=== PATIENT | male | born 1950 ===

== ENCOUNTER 2020-02-23 13:27 | Emergency (ER) | payer MEDICARE, OTHER, SELFPAY ==
[2020-02-23 13:53] VITALS: BP 170/95; PULSE 88; RESP 17; TEMP 36.9; O2SAT 95; BMI 29.2
--- NOTE | 2020-02-23 13:54 | ED.GENADULT ---
HPI - General Adult General Chief complaint: Eye Problems Stated complaint: eye infection Time Seen by Provider: 02/23/20 13:54 Source: patient Mode of arrival: ambulatory Limitations: no limitations History of Present Illness HPI narrative: Irritation and redness around the eyelids for the past 5 days. History of similar in the past. States started with dry itchy areas on the eyelid is now becoming more irritated and red. Severity: mild Quality: aching Relieving factors: none Exacerbating factors: none Associated symptoms: denies other symptoms Treatments prior to arrival: none Related Data Home Medications Medication Instructions Recorded Confirmed atorvastatin 40 mg tablet 40 mg PO DAILY 02/14/20 Previous Rx's Medication Instructions Recorded lisinopril 30 mg tablet 30 mg PO DAILY #90 tab 02/15/20 doxycycline monohydrate 100 mg PO BID 10 Days #20 cap 02/23/20 prednisone 40 mg PO DAILY 7 Days #14 tab 02/23/20 Allergies Allergy/AdvReac Type Severity Reaction Status Date / Time No Known Allergies Allergy Verified 02/23/20 13:55 [No Known Allergies*] Review of Systems Review of Systems: Constitutional: No Weight loss, No Fever, No Chills, No Night Sweats, No Fatigue, No Malaise ENT/Mouth: No Hearing loss, No Ear Pain, No Nasal Congestion, No Sinus Pain, No Hoarseness, No sore throat, No Rhinorrhea, No Swallowing Difficulty Eyes: No Eye Pain, No Swelling, No Redness, No Foreign Body, No Discharge, No Vision Changes Cardiovascular: No Chest Pain, No SOB, No Dyspnea on Exertion, No Orthopnea, No Edema, No Palpitations Respiratory: No Cough, No Sputum, No Wheezing, No Smoke Exposure, No Dyspnea Gastrointestinal: No Nausea, No Vomiting, No Diarrhea, No Constipation, No abdominal Pain, No Hematochezia, No Melena Genitourinary: no irregular bleeding, No Dysuria, No Urinary Frequency, No Hematuria, No Urinary Incontinence, No Urgency, No Flank Pain Musculoskeletal: No joint pain, No Myalgias, No Joint Swelling Skin: No Skin Lesions, + rash Neuro: No Weakness, No Numbness, No Paresthesias, No Loss of Consciousness, No Dizziness, No Headache Psych: No Social Issues Heme/Lymph: No Bruising, No Bleeding,No Lymphadenopathy Endocrine: No Polyuria, No Polydipsia, No Temperature Intolerance Yes all other systems are reviewed and are negative PMFSH Past Medical History Medical History (Updated 02/23/20 @ 13:56 by Adama Jennings NP) Arthritis Social History Social History Alcohol intake: unknown Smoking Status: Unknown if ever smoked Use of substances other than those prescribed or required for medical reasons: Unknown Advance Directives: No Advance Directives Information Provided: Yes Physical Exam Vital Signs: Vital Signs: Last Vital Signs Temp 98.5 F 02/23/20 13:53 Pulse 88 02/23/20 13:53 Resp 17 02/23/20 13:53 BP 170/95 H 02/23/20 13:53 Pulse Ox 95 02/23/20 13:53 Body Mass Index 29.2 Reviewed Const: General: cooperative and healthy appearing; No acute distress or intoxicated appearing Nutritional Appearance: average body habitus Orientation/consciousness: patient oriented x3 HENMT: Head: Yes normal to inspection Ears: hearing grossly normal bilaterally Eyes: General: appearance normal, both eyes and all related structures Visual Michelle: normal visual michelle by confrontation Eyelids: Yes other (Dry scaly areas bilateral eye lids upper and lower with slight erythema ) Neck: Neck: Yes normal visual inspection, No positive Brudzinski's sign, No positive Kernig's sign and No tender Thyroid: Thyroid normal Chest: Chest palpation & inspection: normal inspection of the chest Resp: Effort & Inspection: normal respiratory effort Cardio: Jugular venous distension: no JVD : General: Yes no CVA tenderness Back/Spine/Pelvis: Back: no CVA tenderness Skin: General skin exam: no rashes or lesions noted Neuro: General: patient oriented x3 Extrem: General: Yes normal to inspection Discharge Plan Discharge Clinical Impression: Dermatitis of eyelid Qualifiers: Dermatitis of eyelid type: unspecified Laterality: bilateral Qualified Code(s): H01.9 - Unspecified inflammation of eyelid Patient Disposition: Home, Self-Care Instructions: Dermatitis (ED) Additional Instructions: Warm compresses Take medication as prescribed May apply topical although for itching Benadryl [id number] as prescribed Prednisone as prescribed Antibiotic as prescribed Return if any concerns or worsening symptoms otherwise follow up with primary care doctor as discussed Thank you Prescriptions: New doxycycline monohydrate 100 mg capsule 100 mg PO BID 10 Days Qty: 20 RF: 0 prednisone 20 mg tablet 40 mg PO DAILY 7 Days Qty: 14 RF: 0 No Action lisinopril 30 mg tablet 30 mg PO DAILY Qty: 90 RF: 0 Referrals: Areli Sánchez MD [Primary Care Provider] - 1 week Interventions: ED Discharge Assessment Last Done: 02/23/20 14:10 Discharge Date/Time: 02/23/20 14:11
== END 2020-02-23 14:11 | disposition home or self-care (01) ==
PROVIDERS: Emergency Provider Emergency Medicine Emergency Medical Services; PCP Internal Medicine
DX: H57.13 Ocular pain, bilateral (principal); H01.8 Other specified inflammations of eyelid; Z79.899 Other long term (current) drug therapy
CPT/HCPCS: 99283

== ENCOUNTER 2020-03-08 07:16 | Emergency (ER) | payer MEDICARE, SELFPAY ==
[2020-03-08 07:29] VITALS: BP 194/129; PULSE 83; RESP 16; TEMP 36.7; O2SAT 99; BMI 29.2
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
== END 2020-03-08 08:04 | disposition home or self-care (01) ==
PROVIDERS: Emergency Provider Emergency Medicine Emergency Medical Services
DX: H02.849 Edema of unspecified eye, unspecified eyelid (principal); L23.9 Allergic contact dermatitis, unspecified cause; H01.119 Allergic dermatitis of unspecified eye, unspecified eyelid; I10 Essential (primary) hypertension; Z79.899 Other long term (current) drug therapy
CPT/HCPCS: 99283; 99284

== ENCOUNTER 2020-03-21 06:40 | Emergency (ER) | payer MEDICARE, OTHER, SELFPAY ==
[2020-03-21 06:43] VITALS: BP 185/107; PULSE 80; RESP 16; TEMP 36.8; O2SAT 97; BMI 29.0
--- NOTE | 2020-03-21 07:31 | ED_ITS ---
HPI - Allergic Reaction General Chief complaint: Allergic Reaction Stated complaint: Facial Swelling Time Seen by Provider: 03/21/20 07:31 Source: patient Mode of arrival: ambulatory Limitations: no limitations History of Present Illness HPI narrative: Patient was exposed to dust and mold in the basement now with swelling to his face. Has been seen by an tape transferrer in the past and told that he has an allergy to dust mites complaint: allergic reaction and facial swelling Onset (ago): hour(s) Exposure: other Symptoms: rash, itching and facial swelling Severity: moderate Treatment prior to arrival: benadryl Related Data Previous Rx's Medication Instructions Recorded lisinopril 30 mg tablet 30 mg PO DAILY #90 tab 02/15/20 doxycycline monohydrate 100 mg PO BID 10 Days #20 cap 02/23/20 prednisone 40 mg PO DAILY 7 Days #14 tab 02/23/20 atorvastatin 40 mg tablet 40 mg PO DAILY #90 tab 02/25/20 prednisone 60 mg PO DAILY 5 Days #15 tab 03/08/20 prednisone 10 mg PO DAILY #63 tab 03/21/20 Allergies Allergy/AdvReac Type Severity Reaction Status Date / Time No Known Allergies Allergy Verified 03/20/20 07:35 [No Known Allergies*] Review of Systems Constitutional: Constitutional: Reports no additional constitutional complain ts Eyes: Eyes: Reports no additional eye complaints ENT: Denies dizziness Cardiovascular: Cardiovascular: Reports no additional cardiovascular complaints Respiratory: Respiratory: Reports as per HPI Gastrointestinal: Gastrointestinal: Reports no additional gastrointestinal complaints Musculoskeletal: Musculoskeletal: Reports no additional musculoskeletal complaints Integumentary/Breasts: Skin/Breast: Denies rash Neurologic: Reports system reviewed and no additional complaints, except as documented, Denies dizziness and Denies Sensory deficit (Neuro) Psychiatric: Psychiatric: Denies anxiety [facility] Past Medical History Medical History Arthritis HTN (hypertension) Surgical History History of appendectomy History of hemorrhoidectomy History of hydrocelectomy Family History Family History Father No problems noted. Mother Past heart attack Hypertension Brother HIV (human immunodeficiency virus infection) Brother No problems noted. Sister No problems noted. Sister No problems noted. Social History Social History Alcohol intake: current Alcohol intake frequency: a few times a week Alcohol type: hard liquor Smoking Status: Never smoker Substance Use Type: Marijuana Physical Exam Vital Signs: Vital Signs: Last Vital Signs Temp 98.2 F 03/21/20 06:43 Pulse 80 03/21/20 06:43 Resp 16 03/21/20 06:43 BP 185/107 H 03/21/20 06:43 Pulse Ox 97 03/21/20 06:43 Body Mass Index 29.0 Const: General: healthy appearing Nutritional Appearance: average body habitus Orientation/consciousness: oriented to person and patient oriented x3 Limitations: no limitations HENMT: Other: periorbital swelling and erythema Head: Yes normal to inspection Ears: external ears normal General nose exam: Normal external nose present Mouth: Normal oral and palatal mucosa present and oropharynx normal Throat: Yes posterior oropharynx normal Eyes: General: appearance normal, both eyes and all related structures Neck: Other: supple Neck: Yes normal visual inspection Chest: Chest palpation & inspection: normal inspection of the chest Resp: Auscultation: clear to auscultation bilaterally Cardio: Jugular venous distension: no JVD Rate: regular rate Rhythm: regular rhythm Heart sounds: S1 normal heart sound present and S2 normal heart sound present GI: Inspection: Yes normal to inspection Palpation (GI): Soft to palpation, nontender and No hepatosplenomegaly present Auscultation: normal bowel sounds : General: Yes no CVA tenderness Back/Spine/Pelvis: Back: no CVA tenderness Skin: General skin exam: no rashes or lesions noted Neuro: General: oriented to person and patient oriented x3 Cranial nerves: Yes CN's II-XII intact bilaterally Motor exam (neuro): 5/5 motor strength present throughout Sensory Exam: No Sensory deficit (Neuro) Extrem: General: Yes normal to inspection Psych: Appearance: grossly normal MDM - Allergic Reaction MDM Narrative Medical decision making narrative: Patient with facial reaction will start prednisone taper Differential Diagnosis Differential diagnosis: Likely allergic reaction and contact dermatitis Discharge Plan Discharge Clinical Impression: Urticaria Allergic reaction Qualifiers: Encounter type: initial encounter Qualified Code(s): T78.40XA - Allergy, unspecified, initial encounter Contact dermatitis Qualifiers: Contact dermatitis type: allergic Contact dermatitis trigger: other trigger Qualified Code(s): L23.89 - Allergic contact dermatitis due to other agents Patient Disposition: Home, Self-Care Instructions: General Allergic Reaction (ED) Prescriptions: New prednisone 10 mg tablet 10 mg PO DAILY Qty: 63 RF: 0 No Action lisinopril 30 mg tablet 30 mg PO DAILY Qty: 90 RF: 0 atorvastatin 40 mg tablet 40 mg PO DAILY Qty: 90 RF: 0 doxycycline monohydrate 100 mg capsule 100 mg PO BID 10 Days Qty: 20 RF: 0 prednisone 20 mg tablet 40 mg PO DAILY 7 Days Qty: 14 RF: 0 prednisone 20 mg tablet 60 mg PO DAILY 5 Days Qty: 15 RF: 0 Referrals: Areli Sánchez MD [Primary Care Provider] - 2 days
== END 2020-03-21 07:50 | disposition home or self-care (01) ==
PROVIDERS: Emergency Provider Emergency Medicine; PCP Internal Medicine
DX: L23.89 Allergic contact dermatitis due to other agents (principal); Z79.899 Other long term (current) drug therapy
CPT/HCPCS: 99283

== ENCOUNTER 2020-04-03 09:47 | Outpatient (REF) | payer MEDICARE, SELFPAY ==
[2020-04-03 11:36] LABS: Alanine Aminotransferase 54 U/L (0-40); Alkaline Phosphatase 61 U/L (39-117); Anion Gap 15 (12-20); Aspartate Amino Transferase 27 U/L (5-37); Bilirubin Total 0.8 mg/dL (0.0-1.0); Blood Urea Nitrogen 13 mg/dL (9-16); Calcium 8.9 mg/dL (8.4-10.2); Carbon Dioxide 28 mmol/L (22-29); Chloride 101 mmol/L (96-108); Cholesterol 135 mg/dL; Estimated Glomerular Filt Rate > 60; Glucose Fasting 107 mg/dL (60-99); HDL Cholesterol 26 mg/dL; LDL Cholesterol Calculated 57 mg/dl; Potassium 3.9 mmol/L (3.3-5.1); Sodium 140 mmol/L (135-145); Total Protein 6.5 g/dL (6.5-8.0); Triglycerides 264 mg/dL
== END 2020-04-03 09:48 | disposition home or self-care (01) ==
LOC: HO.LAB 09:47
PROVIDERS: PCP Internal Medicine; Visit Provider Internal Medicine
DX: I10 Essential (primary) hypertension (principal); E78.5 Hyperlipidemia, unspecified
CPT/HCPCS: 36415; 80053; 80061

== ENCOUNTER 2020-04-22 08:55 | Emergency (ER) | payer MEDICARE, SELFPAY ==
[2020-04-22] VITALS (7 sets, daily range): BP systolic 156–180; BP diastolic 80–120; PULSE 65–74; RESP 18–20; TEMP 36.7–36.8; O2SAT 96–100; BMI 28.5
--- NOTE | 2020-04-22 | ECG_ITS ---
Test Reason : CHEST PAIN Blood Pressure : / mmHG Vent. Rate : 067 BPM Atrial Rate : 067 BPM P-R Int : 180 ms QRS Dur : 100 ms QT Int : 390 ms P-R-T Axes : -23 -29 -20 degrees QTc Int : 412 ms Normal sinus rhythm Minimal voltage criteria for LVH, may be normal variant Borderline ECG When compared with ECG of 28-OCT-2018 08:49, Premature ventricular complexes are no longer Present Referred By: Generic ED Physician Electronically Signed By:MARILYN LUNA
--- NOTE | ~2020-04-22 | XR_ITS ---
EXAMINATION: XR CHEST CLINICAL INFORMATION: Chest pain COMPARISON: 10/27/2018 TECHNIQUE: Frontal view of the chest was obtained. FINDINGS: Normal cardiomediastinal silhouette. Mild hypoinflation of the lungs. Streaky opacities at the left lung base. There is trace left-sided pleural thickening. No large focal consolidation. No pleural effusion or pneumothorax. No acute osseous abnormality. XR/XR chest 1V IMPRESSION: Low lung volumes with streaky left basilar atelectasis. Trace left-sided pleural thickening, which may represent atelectasis versus a trace pleural effusion.
--- NOTE | ~2020-04-22 | CT_ITS ---
EXAMINATION: CT ANGIOGRAM OF THE CHEST WITH AND WITHOUT CONTRAST (CT PULMONARY ANGIOGRAM FOR PE) CLINICAL INFORMATION: 70-year-old male patient with chest pain. Elevated D-DIMER COMPARISON: CT of the chest on 10/27/2018. The series normal). TECHNIQUE: Prior to contrast administration, noncontrast localization images were obtained. Subsequently, multidetector volumetric imaging was performed from the thoracic inlet to below the diaphragms following the administration of 85 mL Omnipaque 350 intravenous contrast. No contrast reaction reported Sagittal, coronal, and MIP oblique sagittal reformatted images were obtained on the CT workstation, uploaded to PACS, and reviewed. This CT examination was performed using dose optimization techniques as appropriate, variously including the following: *Automated exposure control *Adjustment of mA and/or kV according to patient size (this includes techniques or standardized protocols for targeted exams where dose is matched to indication/reason for exam; i.e. extremities or head) *Use of iterative reconstruction technique Total exam dose-length product 402 mGy-cm FINDINGS: FISH CULTURIST: Normal. QUALITY OF STUDY/CONTRAST BOLUS: Excellent. PULMONARY ARTERIES: No central or segmental pulmonary emboli. THORACIC AORTA: No aneurysm or dissection. LUNG: No focal consolidation, nodules or masses. Mild dependent atelectasis involves both lower lobes. PLEURA: No pleural effusion or pneumothorax. As before, subpleural fat accumulation is seen in the posterior right costophrenic sulcus. MEDIASTINUM: Normal heart size. No pericardial effusion. No hilar or mediastinal lymphadenopathy. No evidence of septal bowing or right heart strain. CHEST WALL/AXILLA: No axillary or internal mammary lymphadenopathy. OSSEOUS STRUCTURES: No acute or suspicious osseous abnormality. UPPER ABDOMEN: Unremarkable. No reflux of contrast into the hepatic veins to suggest elevated right heart pressures. CT/CT angio chest PE protocol IMPRESSION: No evidence of pulmonary embolism. VTE: negative
--- NOTE | ~2020-04-22 | CT_ITS ---
EXAMINATION: CT HEAD WITHOUT CONTRAST CLINICAL INFORMATION: Headache, dizziness COMPARISON: None TECHNIQUE: Contiguous axial imaging was performed from the skull base to vertex without intravenous administration of contrast. This CT examination was performed using dose optimization techniques as appropriate, variously including the following: *Automated exposure control *Adjustment of mA and/or kV according to patient size (this includes techniques or standardized protocols for targeted exams where dose is matched to indication/reason for exam; i.e. extremities or head) *Use of iterative reconstruction technique DLP: 775 mGy-cm FINDINGS: There is no evidence of acute intracranial hemorrhage or territorial infarction. No abnormal mass effect or midline shift is seen. Almanzar to white matter differentiation is well preserved. No extra-axial fluid collections are identified. Bilateral basal ganglia punctate calcifications. No acute calvarial fracture.. The mastoid air cells and visualized portions of the paranasal sinuses are well aerated. CT/CT head/brain wo con IMPRESSION: No CT evidence of acute intracranial pathology.
--- NOTE | 2020-04-22 09:21 | PC.NURSE ---
pt alert and oriented, skin appropriate for ethnicity, pt states yesterday started with chest pain all across the chest and feeling dizzy/spinning this morning but now feels more lightheaded and reports having a headache today and the chest pain located on the left sided, worse with coughing. ns on the monitor.
[2020-04-22 09:57] LABS: MANUAL DIFF FLAG NO
[2020-04-22] MEDS: 0.9 % Sodium Chloride 1,000 ML 999 ML IVCONT (10:05)
[2020-04-22 10:14] LABS: Basophils Percent Auto 0.1 % (0-2); Eosinophils Percent Auto 0.5 % (0-4); Hematocrit 42.4 % (42-52); Hemoglobin 13.8 g/dl (14.0-18.0); Imm Gran Abs Auto 0.06 X10*3/uL (0.00-0.03); Imm Gran Pct Auto 0.7 % (0.0-0.4); Lymphocytes Absolute Auto 1.3 X10*3/uL (1.2-4.9); Lymphocytes Percent Auto 16.1 % (20-40); Mean Corpuscular HGB Conc 32.5 g/dl (31.0-36.0); Mean Corpuscular Hemoglobin 29.2 pg (27.0-33.0); Mean Corpuscular Volume 89.6 fL (80-98); Mean Platelet Volume 9.9 fL (9.4-12.4); Monocytes Absolute Auto 0.7 X10*3/uL (0.1-1.2); Monocytes Percent Auto 8.4 % (2-11); Neutrophils Percent Auto 74.2 % (45-73); Platelet Count 188 X10*3/uL (160-400); Red Blood Count 4.73 X10*6/uL (4.60-5.80); Red Cell Distribution Width 14.4 % (11.0-16.0); White Blood Count 8.1 X10*3/uL (4.8-10.8)
--- NOTE | 2020-04-22 10:17 | ED_ITS ---
HPI - Chest Pain General Chief Complaint: Chest Pain Stated Complaint: chest pain Time Seen by Provider: 04/22/20 09:35 Source: patient Mode of arrival: ambulatory Limitations: no limitations History of Present Illness HPI narrative: 70 y/o male with history of HTN, HLD, asthma, bronchitis, arthritis and daily alcohol abuse presents with intermittent headaches, dizziness and left sided chest pain since yesterday. He states he had 4 episodes of dizziness yesterday and 2 today - today was when he was brushing his teeth and he describes it as the room spinning. He reports the left sided chest pain is non-radiating and aching in nature. Feels like a bruise. Denies trauma. He reports intermittent SOB for years and new cough that started yesterday. No fever, chills, N/V/D, abdominal pain. No weakness or numbness. He feels wobbly on his feet at times. He currently denies dizziness but complains of frontal headache. He took Tylenol for it this morning. MD complaint: chest pain and other (dizziness, headache) Pertinent past history: asthma Onset (ago): day(s) (1) Timing of current episode: episodic Prior episodes: No Onset: during rest and during exertion Pain location: left chest Pain radiation: none Severity: moderate Quality: tightness and aching Relieving factors: nothing Exacerbating factors: nothing Associated symptoms: cough Treatment prior to arrival: none Related Data Previous Rx's Medication Instructions Recorded lisinopril 30 mg tablet 30 mg PO DAILY #90 tab 02/15/20 atorvastatin 40 mg tablet 40 mg PO DAILY #90 tab 02/25/20 prednisone 10 mg tablet 10 mg PO DAILY 5 Days #5 tab 04/03/20 meclizine 25 mg PO TID PRN #10 tab 04/22/20 naproxen 500 mg PO BID PRN #10 tab 04/22/20 Allergies Allergy/AdvReac Type Severity Reaction Status Date / Time No Known Allergies Allergy Verified 04/03/20 09:22 [No Known Allergies*] Review of Systems Review of Systems: Constitutional: No Fever, No Chills ENT/Mouth: No sore throat, No Rhinorrhea, No Swallowing Difficulty Eyes: No Eye Pain, No Swelling, No Redness Cardiovascular: + Chest Pain, + SOB, No Orthopnea, No Edema Respiratory: + Cough, No Sputum, No Wheezing, No dyspnea Gastrointestinal: No Nausea, No Vomiting, No Diarrhea, No abdominal Pain Genitourinary: No Dysuria, No Urinary Frequency, No Hematuria Musculoskeletal: No joint pain, No Myalgias Skin: No Skin Lesions, No rash Neuro: No Weakness, No Numbness, + Dizziness, + Headache Psych: No Anxiety/Panic, No Depression Heme/Lymph: No Bruising, No Lymphadenopathy Endocrine: No Polyuria, No Polydipsia PMFSH Past Medical History Attestation statement: The following information was validated with the patient. Medical History Arthritis Dyslipidemia Essential hypertension Surgical History History of appendectomy History of hemorrhoidectomy History of hydrocelectomy Family History Family History Father No problems noted. Mother Past heart attack Hypertension Brother HIV (human immunodeficiency virus infection) Brother No problems noted. Sister No problems noted. Sister No problems noted. Social History Social History Alcohol intake: current Alcohol intake frequency: 0-2 drinks per day Alcohol type: hard liquor Smoking Status: Former smoker Use of substances other than those prescribed or required for medical reasons: Yes Substance Use Type: Marijuana Substance Use Frequency: Daily Advance Directives: No Advance Directives Information Provided: Yes Physical Exam Vital Signs: Vital Signs: Last Vital Signs Temp 98.3 F 04/22/20 15:16 Pulse 68 04/22/20 15:16 Resp 18 04/22/20 15:16 BP 161/85 H 04/22/20 15:16 Pulse Ox 96 04/22/20 15:16 Body Mass Index 28.5 Appearance: Alert. Oriented X3. No acute distress. Eyes: Pupils equal, round and reactive to light. ENT: Pharynx normal. Neck: Normal inspection. Neck supple. CVS: Normal heart rate and rhythm. Pulses normal. Moderate anterior chest wall tenderness on the left. No deformity, no ecchymosis. Respiratory: No respiratory distress. Breath sounds normal. Abdomen: Soft and nontender. +BS x4 Skin: Skin warm and dry. Normal skin color. Normal skin turgor. No rashes. Extremities: No lower extremity edema. Neuro: Oriented X 3. No motor deficit. No sensory deficit. Normal heel to jenkins bilaterally and normal finger to nose. No pronator drift. Equal strength throughout. Course Course Course Narrative: 70 y/o male with history of HTN, HLD, & ETOH abuse presenting with intermittent episodic dizziness & left sided chest pain since yesterday. Will need to r/o ACS, PE. Non-focal neuro exam. He did not drink ETOH yesterday, possible withdrawal symptoms? Will get EKG< basic lab workup, CT head, orth ostatic VS. He reports no dizziness at this time, just frontal headache. Doubt CVA with normal neuro exam and no dizziness here. Tylenol ordered. Reevaluation(s) Reevaluation #1: Orthostatic VS negative. Troponin marginally elevated at 6 - will get 3 hour repeat. DDIMER slightly elevated as well, will get CTA to r/o PE. Reevaluation #2: 2nd troponin did not increase by delta of 50%, making cardiac etiology much less likely. His exam continues to reveal reproducible chest d iscomfort, making muscular etiology more likely. He continue deny dizziness here and he is walking with a steady gait. His headache is still there but better. CTA is negative for PE. He is stable for discharge with plans for follow up wt PCP, initiation of PRN meclizine for possible vertigo attacks. He is agreeable with plan. MDM - Chest Pain Medical Records Data Attestation: I reviewed the patient's medical records. Lab Data Attestation: I reviewed the patient's lab results. Result diagrams: 04/22/20 09:52 04/22/20 09:52 Labs: Lab Results 04/22/20 04/22/20 04/22/20 Range/Units 09:52 09:52 09:52 WBC 8.1 (4.8-10.8) X10*3/uL RBC 4.73 (4.60-5.80) X10*6/uL Hgb 13.8 L (14.0-18.0) g/dl Hct 42.4 (42-52) % MCV 89.6 (80-98) fL MCH 29.2 (27.0-33.0) pg MCHC 32.5 (31.0-36.0) g/dl RDW 14.4 (11.0-16.0) % Plt Count 188 (160-400) X10*3/uL MPV 9.9 (9.4-12.4) fL Immature Gran % (Auto) 0.7 H (0.0-0.4) % Neut % (Auto) 74.2 H (45-73) % Lymph % (Auto) 16.1 L (20-40) % Mineral % (Auto) 8.4 (2-11) % Eos % (Auto) 0.5 (0-4) % Baso % (Auto) 0.1 (0-2) % Lymph # (Auto) 1.3 (1.2-4.9) X10*3/uL Mineral # (Auto) 0.7 (0.1-1.2) X10*3/uL Eos # (Auto) 0.0 (0.0-0.4) X10*3/uL Baso # (Auto) 0.0 (0.0-0.2) X10*3/uL Abs Immat Gran (auto) 0.06 H (0.00-0.03) X10*3/uL Absolute Neuts (auto) 6.0 (2.0-8.3) X10*3/uL Absolute Nucleated RBC 0.000 (0.0-0.012) X10*3/uL Nucleated RBC % (auto) 0.0 (0.0-0.2) /100WBC PT 12.2 (10.8-13.0) SEC INR 1.0 (0.9-1.1) APTT 28.7 (24.1-38.0) SEC D-Dimer 283 NG/ML Hold Blue Top SEE NOTE Sodium 138 (135-145) mmol/L Potassium 3.5 (3.3-5.1) mmol/L Chloride 102 (96-108) mmol/L Carbon Dioxide 27 (22-29) mmol/L Anion Gap 13 (12-20) BUN 15 (9-16) mg/dL Creatinine 0.76 (0.5-1.4) mg/dL Estim Creat Clear Calc 106.8 Estimated GFR > 60 Random Glucose 99 (60-115) mg/dL Calcium 8.5 (8.4-10.2) mg/dL Magnesium 1.8 (1.6-2.6) mg/dL Total Bilirubin 0.9 (0.0-1.0) mg/dL Direct Bilirubin 0.3 (0.0-0.5) mg/dL AST 36 (5-37) U/L ALT 54 H (0-40) U/L Alkaline Phosphatase 43 D (39-117) U/L Troponin I High Sens (<3.5-35.0) ng/L B-Natriuretic Peptide (<100) pg/mL Total Protein 5.9 L (6.5-8.0) g/dL Albumin 3.8 (3.5-5.0) g/dL Lipase (8-78) U/L Urine Color Urine Appearance Urine pH (5.0-8.0) Ur Specific Decker (1.005-1.025) Urine Protein (NEG-TRACE) MG/DL Urine Glucose (UA) (NEG) MG/DL Urine Ketones (NEG) MG/DL Urine Blood (NEG) Urine Nitrite (NEG) Ur Leukocyte Esterase (NEG) Coronavirus (PCR) (Negative) Influenza Type A (PCR) (Negative) Influenza Type B (PCR) (Negative) RSV RNA Qual (PCR) (Negative) 04/22/20 04/22/20 04/22/20 Range/Units 09:52 09:52 10:11 WBC (4.8-10.8) X10*3/uL RBC (4.60-5.80) X10*6/uL Hgb (14.0-18.0) g/dl Hct (42-52) % MCV (80-98) fL MCH (27.0-33.0) pg MCHC (31.0-36.0) g/dl RDW (11.0-16.0) % Plt Count (160-400) X10*3/uL MPV (9.4-12.4) fL Immature Gran % (Auto) (0.0-0.4) % Neut % (Auto) (45-73) % Lymph % (Auto) (20-40) % Mineral % (Auto) (2-11) % Eos % (Auto) (0-4) % Baso % (Auto) (0-2) % Lymph # (Auto) (1.2-4.9) X10*3/uL Mineral # (Auto) (0.1-1.2) X10*3/uL Eos # (Auto) (0.0-0.4) X10*3/uL Baso # (Auto) (0.0-0.2) X10*3/uL Abs Immat Gran (auto) (0.00-0.03) X10*3/uL Absolute Neuts (auto) (2.0-8.3) X10*3/uL Absolute Nucleated RBC (0.0-0.012) X10*3/uL Nucleated RBC % (auto) (0.0-0.2) /100WBC PT (10.8-13.0) SEC INR (0.9-1.1) APTT (24.1-38.0) SEC D-Dimer NG/ML Hold Blue Top Sodium (135-145) mmol/L Potassium (3.3-5.1) mmol/L Chloride (96-108) mmol/L Carbon Dioxide (22-29) mmol/L Anion Gap (12-20) BUN (9-16) mg/dL Creatinine (0.5-1.4) mg/dL Estim Creat Clear Calc Estimated GFR Random Glucose (60-115) mg/dL Calcium (8.4-10.2) mg/dL Magnesium (1.6-2.6) mg/dL Total Bilirubin (0.0-1.0) mg/dL Direct Bilirubin (0.0-0.5) mg/dL AST (5-37) U/L ALT (0-40) U/L Alkaline Phosphatase (39-117) U/L Troponin I High Sens 6.0 (<3.5-35.0) ng/L B-Natriuretic Peptide 59 (<100) pg/mL Total Protein (6.5-8.0) g/dL Albumin (3.5-5.0) g/dL Lipase 25 (8-78) U/L Urine Color Urine Appearance Urine pH (5.0-8.0) Ur Specific Decker (1.005-1.025) Urine Protein (NEG-TRACE) MG/DL Urine Glucose (UA) (NEG) MG/DL Urine Ketones (NEG) MG/DL Urine Blood (NEG) Urine Nitrite (NEG) Ur Leukocyte Esterase (NEG) Coronavirus (PCR) NEGATIVE (Negative) Influenza Type A (PCR) NEGATIVE (Negative) Influenza Type B (PCR) NEGATIVE (Negative) RSV RNA Qual (PCR) NEGATIVE (Negative) 04/22/20 04/22/20 Range/Units 11:26 13:00 WBC (4.8-10.8) X10*3/uL RBC (4.60-5.80) X10*6/uL Hgb (14.0-18.0) g/dl Hct (42-52) % MCV (80-98) fL MCH (27.0-33.0) pg MCHC (31.0-36.0) g/dl RDW (11.0-16.0) % Plt Count (160-400) X10*3/uL MPV (9.4-12.4) fL Immature Gran % (Auto) (0.0-0.4) % Neut % (Auto) (45-73) % Lymph % (Auto) (20-40) % Mineral % (Auto) (2-11) % Eos % (Auto) (0-4) % Baso % (Auto) (0-2) % Lymph # (Auto) (1.2-4.9) X10*3/uL Mineral # (Auto) (0.1-1.2) X10*3/uL Eos # (Auto) (0.0-0.4) X10*3/uL Baso # (Auto) (0.0-0.2) X10*3/uL Abs Immat Gran (auto) (0.00-0.03) X10*3/uL Absolute Neuts (auto) (2.0-8.3) X10*3/uL Absolute Nucleated RBC (0.0-0.012) X10*3/uL Nucleated RBC % (auto) (0.0-0.2) /100WBC PT (10.8-13.0) SEC INR (0.9-1.1) APTT (24.1-38.0) SEC D-Dimer NG/ML Hold Blue Top Sodium (135-145) mmol/L Potassium (3.3-5.1) mmol/L Chloride (96-108) mmol/L Carbon Dioxide (22-29) mmol/L Anion Gap (12-20) BUN (9-16) mg/dL Creatinine (0.5-1.4) mg/dL Estim Creat Clear Calc Estimated GFR Random Glucose (60-115) mg/dL Calcium (8.4-10.2) mg/dL Magnesium (1.6-2.6) mg/dL Total Bilirubin (0.0-1.0) mg/dL Direct Bilirubin (0.0-0.5) mg/dL AST (5-37) U/L ALT (0-40) U/L Alkaline Phosphatase (39-117) U/L Troponin I High Sens 8.0 (<3.5-35.0) ng/L B-Natriuretic Peptide (<100) pg/mL Total Protein (6.5-8.0) g/dL Albumin (3.5-5.0) g/dL Lipase (8-78) U/L Urine Color YELLOW Urine Appearance CLEAR Urine pH 6.5 (5.0-8.0) Ur Specific Decker 1.010 (1.005-1.025) Urine Protein NEG (NEG-TRACE) MG/DL Urine Glucose (UA) NEG (NEG) MG/DL Urine Ketones NEG (NEG) MG/DL Urine Blood NEG (NEG) Urine Nitrite NEG (NEG) Ur Leukocyte Esterase NEG (NEG) Coronavirus (PCR) (Negative) Influenza Type A (PCR) (Negative) Influenza Type B (PCR) (Negative) RSV RNA Qual (PCR) (Negative) ECG Data ECG #1: Attestation: I personally reviewed and interpreted this ECG as follows: ECG interpretation date: 04/22/20 ECG interpretation time: 09:31 Interpretation: normal sinus rhythm, HR 67 bpm, normal UT interval, normal QTc, t-wave inversions in leads III & aVF Discharge Plan Discharge Clinical Impression: Anterior chest wall pain, Vertigo Patient Disposition: Home, Self-Care Instructions: Chest Pain (ED), Vertigo (ED), Dizziness (ED) Additional Instructions: Your workup today was unremarkable. It is unlikely that your symptoms are cardiac in etiology. Recommend taking Tylenol or Motrin as needed for pain. It is likely from the muscles in your chest wall being strained. Rest and stay hydrated. Try not to change positions too quickly. Take the prescribed medication as needed for dizziness. Follow up with your doctor this week. If you develop recurrent dizziness, worsening chest pain or any other concerning symptom come back to the ER for further evaluation. Prescriptions: New meclizine 25 mg tablet 25 mg PO TID PRN (Reason: dizziness) Qty: 10 RF: 0 naproxen 500 mg tablet 500 mg PO BID PRN (Reason: pain) Qty: 10 RF: 0 No Action lisinopril 30 mg tablet 30 mg PO DAILY Qty: 90 RF: 0 atorvastatin 40 mg tablet 40 mg PO DAILY Qty: 90 RF: 0 prednisone 10 mg tablet 10 mg PO DAILY 5 Days Qty: 5 RF: 0
[2020-04-22 10:19] LABS: Prothrombin Time 12.2 SEC (10.8-13.0)
[2020-04-22 10:22] LABS: Partial Thromboplastin Time 28.7 SEC (24.1-38.0)
[2020-04-22 10:26] LABS: Lipase 25 U/L (8-78)
[2020-04-22 10:28] LABS: Albumin Level 3.8 g/dL (3.5-5.0)
[2020-04-22 10:30] LABS: B Type Natriuretic Peptide 59 pg/mL (<100)
[2020-04-22 10:31] LABS: Alanine Aminotransferase 54 U/L (0-40); Alkaline Phosphatase 43 U/L (39-117); Anion Gap 13 (12-20); Aspartate Amino Transferase 36 U/L (5-37); Bilirubin Direct 0.3 mg/dL (0.0-0.5); Bilirubin Total 0.9 mg/dL (0.0-1.0); Blood Urea Nitrogen 15 mg/dL (9-16); Calcium 8.5 mg/dL (8.4-10.2); Carbon Dioxide 27 mmol/L (22-29); Chloride 102 mmol/L (96-108); Creatinine Clr Calc Pharmacy 106.8; Estimated Glomerular Filt Rate > 60; Glucose Random 99 mg/dL (60-115); Magnesium 1.8 mg/dL (1.6-2.6); Potassium 3.5 mmol/L (3.3-5.1); Sodium 138 mmol/L (135-145); Total Protein 5.9 g/dL (6.5-8.0)
[2020-04-22 10:44] LABS: D Dimer 283 NG/ML
[2020-04-22 11:06] LABS: Influenza A PCR NEGATIVE (Negative); Influenza B PCR NEGATIVE (Negative); Resp Syncy Virus RNA Qual PCR NEGATIVE (Negative); SARS COV2 PCR INHOUSE NEGATIVE (Negative)
[2020-04-22] MEDS: Acetaminophen 325 MG TABLET 975 MG PO (11:23)
--- NOTE | 2020-04-22 11:28 | PC.NURSE ---
patient medicated per order, vitals obtained, urine obtained, telemetry monitor intact
[2020-04-22 11:39] LABS: Glucose Urine UA NEG (NEG); Leukocyte Esterase Urine NEG (NEG); Nitrite Urine NEG (NEG); PH 6.5 (5.0-8.0); Urine Blood NEG (NEG); Urine Ketones NEG (NEG); Urine Protein NEG (NEG-TRACE)
[2020-04-22 11:42] LABS: Appearance Urine CLEAR; Color Urine YELLOW
--- NOTE | 2020-04-22 12:00 | PC.NURSE ---
pt to ct
[2020-04-22] MEDS: iohexoL 350 MG/ML 100 ML INFUS..BTL IV (13:39)
== END 2020-04-22 15:29 | disposition home or self-care (01) ==
PROVIDERS: Physician Assistant; Emergency Provider Emergency Medicine Emergency Medical Services; PCP Internal Medicine
DX: R42 Dizziness and giddiness (principal); R07.89 Other chest pain; Z79.899 Other long term (current) drug therapy; Z87.891 Personal history of nicotine dependence; Z20.822 Contact with and (suspected) exposure to COVID-19
CPT/HCPCS: 0241U; 36415; 70450; 71045; 71275; 80048; 80076; 81003; 83690; 83735; 83880; 84484; 85025; 85379; 85610; 85730; 93005; 99285; Q9967

== ENCOUNTER 2020-06-27 09:05 | Outpatient (REF) | payer MEDICARE, SELFPAY ==
[2020-06-27 10:37] LABS: MANUAL DIFF FLAG NO
[2020-06-27 10:59] LABS: Alanine Aminotransferase 44 U/L (0-40); Albumin Level 4.2 g/dL (3.5-5.0); Alkaline Phosphatase 58 U/L (39-117); Anion Gap 14 (12-20); Aspartate Amino Transferase 37 U/L (5-37); Bilirubin Total 1.3 mg/dL (0.0-1.0); Blood Urea Nitrogen 22 mg/dL (9-16); Calcium 9.4 mg/dL (8.4-10.2); Carbon Dioxide 28 mmol/L (22-29); Chloride 101 mmol/L (96-108); Cholesterol 112 mg/dL; Estimated Glomerular Filt Rate > 60; Glucose Fasting 106 mg/dL (60-99); HDL Cholesterol 22 mg/dL; LDL Cholesterol Calculated 23 mg/dl; Potassium 4.2 mmol/L (3.3-5.1); Sodium 139 mmol/L (135-145); Total Protein 6.6 g/dL (6.5-8.0); Triglycerides 337 mg/dL
[2020-06-27 11:02] LABS: Basophils Percent Auto 0.5 % (0-2); Eosinophils Absolute Auto 0.1 X10*3/uL (0.0-0.4); Eosinophils Percent Auto 1.5 % (0-4); Hemoglobin 14.2 g/dl (14.0-18.0); Imm Gran Abs Auto 0.02 X10*3/uL (0.00-0.03); Imm Gran Pct Auto 0.3 % (0.0-0.4); Lymphocytes Absolute Auto 1.6 X10*3/uL (1.2-4.9); Lymphocytes Percent Auto 26.3 % (20-40); Mean Corpuscular HGB Conc 32.3 g/dl (31.0-36.0); Mean Corpuscular Hemoglobin 29.2 pg (27.0-33.0); Mean Corpuscular Volume 90.5 fL (80-98); Mean Platelet Volume 10.3 fL (9.4-12.4); Monocytes Absolute Auto 0.7 X10*3/uL (0.1-1.2); Monocytes Percent Auto 10.5 % (2-11); Neutrophils Absolute Auto 3.8 X10*3/uL (2.0-8.3); Neutrophils Percent Auto 60.9 % (45-73); Platelet Count 221 X10*3/uL (160-400); Red Blood Count 4.86 X10*6/uL (4.60-5.80); Red Cell Distribution Width 13.2 % (11.0-16.0); White Blood Count 6.2 X10*3/uL (4.8-10.8)
== END 2020-06-27 09:06 | disposition home or self-care (01) ==
LOC: HO.LAB 09:05
PROVIDERS: PCP Internal Medicine; Visit Provider Nurse Practitioner Family
DX: E78.5 Hyperlipidemia, unspecified (principal); I10 Essential (primary) hypertension
CPT/HCPCS: 36415; 80053; 80061; 85025

== ENCOUNTER 2020-07-16 12:54 | Outpatient (REF) | payer MEDICARE, SELFPAY | END 2020-07-16 12:55 | disposition home or self-care (01) | LOC: HO.US 12:54 | PROVIDERS: Visit Provider Internal Medicine | DX: Z13.89 Encounter for screening for other disorder (principal) ==

== ENCOUNTER 2020-07-17 08:32 | Outpatient (REF) | payer MEDICARE, OTHER, SELFPAY ==
--- NOTE | ~2020-07-17 | US_ITS ---
EXAMINATION: ULTRASOUND ABDOMINAL AORTA CLINICAL INFORMATION: History of nicotine dependence COMPARISON: None TECHNIQUE: Doppler color and grayscale evaluation of the abdominal aorta including waveform spectral analysis FINDINGS: The abdominal aorta is normal in caliber. The proximal abdominal aorta measures 2.4 x 2.4 cm, mid 2.3 x 2.3 cm and distal 2.1 x 2.3 cm. No aneurysm is seen. The bilateral common iliac measure 1.3 x 1.5 cm on the right and 1.5 x 1.5 cm on the left. There is calcified and noncalcified plaque seen in the distal abdominal aorta and left common iliac artery. Aortic peak systolic velocity is normal measuring 59 cm/s. US/US abdominal aortic aneurysm IMPRESSION: Atherosclerotic disease. No aneurysm seen.
== END 2020-07-17 08:33 | disposition home or self-care (01) ==
LOC: HO.US 08:32
PROVIDERS: PCP Internal Medicine; Visit Provider Internal Medicine
DX: Z87.891 Personal history of nicotine dependence (principal)
CPT/HCPCS: 76706

== ENCOUNTER 2021-02-20 07:07 | Emergency (ER) | payer MEDICARE, OTHER, SELFPAY ==
[2021-02-20 07:31] VITALS: BP 169/103; PULSE 89; RESP 19; TEMP 36.6; O2SAT 94; BMI 28.5
--- NOTE | 2021-02-20 08:05 | ED.MALEGU ---
HPI - Male Genitourinary General Chief complaint: Urogenital-Male Stated complaint: irritated penis Time Seen by Provider: 02/20/21 07:51 Source: patient Mode of arrival: ambulatory Limitations: no limitations History of Present Illness HPI Narrative: 70 y/o male presents to the ER with reddened, burning skin at the tip of his penis with clear oozing liquid for the last couple of weeks. He reports using antibiotic ointment with improvement in symptoms but then it came back when he stopped using it. He denies any urinary symptoms. He is not sexually active. No penile discharge and no testicular pain. No fever, chills, N/V/D or abdominal pain. No hx diabetes. MD Complaint: other (penile redness and swelling) Onset (ago): week(s) Duration: constant Location: penis Severity: moderate Quality: burning Relieving factors: none Exacerbating factors: palpation Associated symptoms: Reports swelling Related Data Sexually active: No Previous Rx's Medication Instructions Recorded meclizine 25 mg tablet 25 mg PO TID PRN #10 tab 04/22/20 naproxen 500 mg tablet 500 mg PO BID PRN #10 tab 04/22/20 amlodipine 10 mg tablet 10 mg PO DAILY 30 Days #30 tab 04/27/20 atorvastatin 40 mg tablet 40 mg PO DAILY #90 tab 05/29/20 lisinopril 30 mg tablet 30 mg PO DAILY #90 tab 02/04/21 mupirocin 2 % topical ointment 1 appl TOPICAL TID #22 g 02/20/21 Allergies Allergy/AdvReac Type Severity Reaction Status Date / Time No Known Allergies Allergy Verified 06/28/20 09:40 [No Known Allergies*] Review of Systems Review of Systems: Constitutional: No Fever, No Chills Cardiovascular: No Chest Pain, No SOB Gastrointestinal: No Nausea, No Vomiting, No Diarrhea, No abdominal Pain Genitourinary: No Dysuria, No Urinary Frequency, No Hematuria, +Penile swelling, No testicular pain Musculoskeletal: No joint pain, No Myalgias Skin: + Skin Lesions, No rash Neuro: No Weakness, No Numbness Psych: + Anxiety/Augustina Heme/Lymph:No Lymphadenopathy Endocrine: No Polyuria, No Polydipsia PMFSH Past Medical History Medical History Arthritis Dyslipidemia Essential hypertension Former smoker Surgical History History of appendectomy History of hemorrhoidectomy History of hydrocelectomy Family History Family History Father No problems noted. Mother Past heart attack Hypertension Brother HIV (human immunodeficiency virus infection) Brother No problems noted. Sister No problems noted. Sister No problems noted. Social History Social History (Updated 06/28/20 @ 09:41 by Areli Howell MD) Alcohol intake: current Alcohol intake frequency: a few times a week Alcohol type: hard liquor Substance Use Type: Marijuana Advance Directives: No Advance Directives Information Provided: No Physical Exam Vital Signs: Vital Signs: Last Vital Signs Temp 98 F 02/20/21 07:31 Pulse 89 02/20/21 07:31 Resp 19 02/20/21 07:31 BP 169/103 H 02/20/21 07:31 Pulse Ox 94 02/20/21 07:31 BMI result Body Mass Index 28.5 Appearance: Alert. Oriented X3. No acute distress. HEENT: normal inspection CVS: Normal heart rate and rhythm. Pulses normal. Respiratory: No respiratory distress. : penile shaft with erythema and swelling of the distal shaft and glans, no discharge or focal lesion. no testicular tenderness. Skin: Skin warm and dry. Normal skin color. Normal skin turgor. No rashes. Extremities: atraumatic, normal inspection, normal ROM Neuro: Oriented X 3. No motor deficit. No sensory deficit. Course Course Course Narrative: 70 y/o male presenting with penile swelling, redness and clear drainage. Exam and clinical presentation are consistent with balanitis, most likely bacterial. Will treat with mupirocin and have him f/u with PCP and Urology. He has no s/sxs of UTI. He is stable for d/c home. Critical Care Time Critical Care Time Critical Care Time: No Discharge Plan Discharge Clinical Impression: Acute balanitis due to infection Patient Disposition: Home, Self-Care Instructions: Balanitis (ED) Additional Instructions: use the prescribed antibiotic as directed follow up with your doctor in 1 week recommend following up with Urology if symptoms recur if you develop new or worsening symptoms call 911 or come back to the ER for further evaluation. Prescriptions: New mupirocin 2 % ointment 1 appl topical TID Qty: 22 RF: 0 No Action atorvastatin 40 mg tablet 40 mg PO DAILY Qty: 90 RF: 3 lisinopril 30 mg tablet 30 mg PO DAILY Qty: 90 RF: 3 meclizine 25 mg tablet 25 mg PO TID PRN (Reason: dizziness) Qty: 10 RF: 0 naproxen 500 mg tablet 500 mg PO BID PRN (Reason: pain) Qty: 10 RF: 0 amlodipine 10 mg tablet 10 mg PO DAILY 30 Days Qty: 30 RF: 0
== END 2021-02-20 08:28 | disposition home or self-care (01) ==
PROVIDERS: Emergency Provider Emergency Medicine; PCP Internal Medicine
DX: N48.1 Balanitis (principal); N48.89 Other specified disorders of penis; I10 Essential (primary) hypertension; E78.5 Hyperlipidemia, unspecified; Z79.02 Long term (current) use of antithrombotics/antiplatelets; Z79.899 Other long term (current) drug therapy
CPT/HCPCS: 99283

== ENCOUNTER 2021-07-04 07:34 | Outpatient (REF) | payer MEDICARE, OTHER, SELFPAY ==
--- NOTE | 2021-07-04 07:44 | ECG_ITS ---
Test Reason : chest pain Blood Pressure : / mmHG Vent. Rate : 070 BPM Atrial Rate : 070 BPM P-R Int : 188 ms QRS Dur : 100 ms QT Int : 384 ms P-R-T Axes : -24 -40 -30 degrees QTc Int : 414 ms Normal sinus rhythm Left axis deviation Minimal voltage criteria for LVH, may be normal variant ( [place] product ) Inferior infarct , age undetermined Abnormal ECG When compared with ECG of 22-APR-2020 09:14, Inferior infarct is now Present Referred By: Areli Howell Electronically Signed By:CRISTIAN BREWSTER MD
[2021-07-04 09:19] LABS: Alanine Aminotransferase 78 U/L (0-40); Albumin Level 4.4 g/dL (3.5-5.0); Alkaline Phosphatase 57 U/L (39-117); Anion Gap 14 (12-20); Aspartate Amino Transferase 62 U/L (5-37); Bilirubin Total 1.5 mg/dL (0.0-1.0); Blood Urea Nitrogen 16 mg/dL (9-16); Calcium 9.7 mg/dL (8.4-10.2); Carbon Dioxide 26 mmol/L (22-29); Chloride 101 mmol/L (96-108); Cholesterol 105 mg/dL; Estimated Glomerular Filt Rate > 60; Glucose Fasting 97 mg/dL (60-99); HDL Cholesterol 25 mg/dL; LDL Cholesterol Calculated 24 mg/dl; Potassium 4.2 mmol/L (3.3-5.1); Sodium 137 mmol/L (135-145); Triglycerides 281 mg/dL
== END 2021-07-04 07:35 | disposition home or self-care (01) ==
LOC: HO.LAB 07:34
PROVIDERS: PCP Internal Medicine; Visit Provider Internal Medicine
DX: Z00.00 Encounter for general adult medical examination without abnormal findings (principal); R07.9 Chest pain, unspecified; E78.5 Hyperlipidemia, unspecified
CPT/HCPCS: 36415; 80053; 80061; 93005

== ENCOUNTER → 2021-10-31 12:25 | Outpatient (BNVA) | payer MEDICARE, OTHER, SELFPAY | PROVIDERS: PCP Internal Medicine; Referring Provider Internal Medicine; Visit Provider Internal Medicine | DX: R07.9 Chest pain, unspecified (principal); I10 Essential (primary) hypertension; E78.5 Hyperlipidemia, unspecified | CPT/HCPCS: 93005; 99202 ==

== ENCOUNTER → 2021-11-19 13:44 | Outpatient (REF) | payer MEDICARE, SELFPAY ==
--- NOTE | 2021-11-19 13:47 | CA_ITS ---
Transthoracic Echocardiogram Patient (Last, First, Middle): Akil Trevino, Gender: Male Date of : 1950 Age: 71 Procedure Date: 11/19/2021 Procedure Type: Transthoracic Echocardiogram Location: OP Height: 180.34 cm Weight: 90.72 kg BSA: 2.11 m2 Heart Rate: bpm BP: 125 / 75 mmHg Ventilation Mechanic: MELISSA Referring MD: Gian Weir MD Symptoms: R07.9 - Chest pain, unspecified Study Quality: Fair ECG Rhythm: Sinus Conclusions: - The left ventricular systolic function is normal. The calculated ejection fraction is 56% by biplane method. - There is evidence of regional wall motion abnormalities. - There is moderately increased left ventricular wall thickness. - There is severe septal asymmetric hypertrophy. - There is mild calcification of the aortic valve. Findings Left Ventricle Normal left ventricular cavity size. There is moderately increased left ventricular wall thickness. The left ventricular systolic function is normal. The calculated ejection fraction is 56% by biplane method. There is evidence of regional wall motion abnormalities. Diastolic function is normal for age. There is severe septal asymmetric hypertrophy. Wall Motion Rest Echo Findings The inferolateral wall and apical septum segment are hypokinetic. The basal inferior segment is akinetic. Right Ventricle Normal right ventricular cavity size and systolic function. Atria Both atria are normal in size. Aortic Valve There is a normal trileaflet aortic valve. There is mild calcification of the aortic valve. There is no aortic valve stenosis. There is no aortic valve regurgitation. Mitral Valve The mitral valve appears normal. There is no mitral valve regurgitation. There is no mitral valve stenosis. Pulmonic Valve The pulmonic valve is likely normal. Tricuspid Valve There is trace tricuspid valve regurgitation. There is no evidence of pulmonary hypertension. Great Vessels The asc aorta is normal in size. Venous The inferior vena cava is normal in size and collapses greater than 50% with inspiration. Pericardium/Pleural There is no evidence of pericardial effusion. Prior Study Comparison No significant change compared to prior study dated: 10/28/2018. Measurements 2D Linear Measurements IVSd: 1.59 0.6-0.9/0.6-1.0 cm LVIDd: 4.11 3.9-5.3/4.2-5.9 cm LVIDd Index: 1.95 2.4-3.2/2.2-3.1 cm/m2 LVIDs: 2.96 2.0-3.6 cm LVPWd: 1.40 0.7-1.1 cm LA Diam: 4.40 2.7-3.8/3.0-4.0 cm LAIDs Index: 2.09 1.5-2.3 cm/m2 LV Mass: 300.02 67-162/88-224 g LV Mass Index: 142.19 43-95/49-115 g/m2 LVOT Diam: 2.30 3.0+(-)1.3 cm 2D Systolic Function EF 4C: 43.10 >55% EF 2C: 66.30 >55% EF BiP: 56.00 >55% Mitral Valve MV Pk E: 0.46 MV PK A: 0.84 MV Decel Time: 313.00 E/A: 0.50 E'Lateral: 7.83 E'Medial: 5.11 E/E' Med: 9.00 E/E' Lat: 5.80 PHT: 92.00 MVA PHT: 2.39 Decel Sterling: 1.47 Aortic Valve AoV Pk Narciso: 1.21 AoV Mn Narciso: 0.87 AoV VTI: 0.24 AoV Pk Grad: 6.00 Aov Mn Grad: 3.00 B[place] Cont.VTI: 2.76 LVOT LVOT Pk Narciso: 0.72 LVOT Mn Narciso: 0.52 LVOT VTI: 0.16 LVOT Pk Grad: 2.00 LVOT Mn Grad: 1.00 LVOT Diam: 2.30 LVOT Area: 4.15 Diastolic Function MV Pk E: 0.46 MV Pk A: 0.84 E/A: 0.50 E'Medial: 5.11 E/E' Med: 9.00 E' Laterial: 7.83 E/E' Lat: 5.80 Right Ventricle TAPSE (mm): 25.70 TVS' Narciso: 14.10 Tricuspid Valve TR Pk Narciso: 1.64 TR Pk Grad: 11.00 RA Press: 3.00 RVSP: 14.00 Great Vessels Aorta Sinus of Valsalva: 3.70 2.0-3.5 cm Ao Asc: 3.50 2.1-3.4 cm Pulmonary Valve PV Pk Narciso: 0.68 Peak PV Grad: 2.00 Updated in Other Vendor System with Status of Final Gian Weir MD electronically signed on 11/19/2021 5:55:39 PM with status of Final
== END ==
LOC: HO.CARD 13:44
PROVIDERS: Visit Provider Internal Medicine
DX: R07.9 Chest pain, unspecified (principal)
CPT/HCPCS: 93306

== ENCOUNTER → 2021-11-21 08:31 | Outpatient (REF) | payer MEDICARE, SELFPAY ==
--- NOTE | ~2021-11-21 | NM_ITS ---
Exercise Myocardial perfusion study Indication: Chest pain to evaluate for myocardial ischemia Technique: The patient was brought in for an exercise perfusion study on 11/21/2021. Patient performed exercise as per [place] protocol and was injected 30 mCi of sestamibi was given intravenously one target HR was achieved. Images were obtained using the SPECT gamma camera interlaced with the gating device. Images were obtained in supine position. Resting perfusion study was performed on 11/22/2021. Patient was administered 30 mCi of sestamibi intravenously at rest. Images were then obtained in supine position. Images obtained with and without CT attenuation. Total DLP 112 mGy-cm Images were processed with the software and compared side to side in short axis, horizontal long axis and vertical long axis views. Findings: The stress perfusion study showed non attenuated images show mildly reduced uptake in the mid and apical portion of the inferior wall and severely reduced uptake in the basal inferior wall of the LV myocardium. Attenuation corrected images show prompt gated basal inferior wall suggestive of reduced uptake with normalized uptake in the mid and apical portion of the inferior wall which may be over correction.. The gated study shows low normal LV systolic function with calculated LVEF of 53%. LV cavity is mildly dilated in size. The gated study shows reduced wall thickening and contraction of basal inferior segments. There is no transient ischemic dilation. Resting study shows no significant change in perfusion pattern compared to stress perfusion study. Gating at rest reveals basal inferior wall motion with ejection fraction at 54%. The findings are consistent with no reversible defect suggestive of ischemia. Fixed basal inferior defect suggestive of prior myocardial infarction.. NM/NM cardiolite stress test Impression: 1. 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 Gated LVEF is 53% 3. Transient ischemic dilatation not present Stress EKG is borderline for ischemia
--- NOTE | 2021-11-21 08:34 | CA_ITS ---
Acquisition Time: 2021-11-21 08:54:45 Total Exercise Time: 00:06:21 Test Indications: Abnormal ECG Medications: ATORVASTATIN FENOFIBRATE LISINOPRIL CHLORTHALADONE Protocol: KRYSTYNA Max HR: 133 BPM 88% of Pred: 150 BPM Max BP: 158/088 mmHG Max Work Load: 7.0 METS Exercise stress test with exercise 6 min 21 sec of Krystyna protocol ( stage 2 held due to back pain), without anginal symptoms, with isolated PVCs, with normotensive response to exercise, with borderline EKG changes suggesting possible ischemia: [address] depression lead I, downsloping ST aVL which correct in recovery. Nuclear images pending. Test reviewed with Dr Anaya. Referred By: Gian Weri Overread By: ACE ALICEA
== END ==
LOC: HO.CARD 08:31
PROVIDERS: Visit Provider Internal Medicine
DX: R07.9 Chest pain, unspecified (principal); R07.2 Precordial pain
CPT/HCPCS: 78452; 93017; A9500

== ENCOUNTER → 2021-12-24 13:18 | Outpatient (BNVA) | payer MEDICARE, SELFPAY | PROVIDERS: PCP Internal Medicine; Referring Provider Internal Medicine; Visit Provider Nurse Practitioner Family | DX: R07.9 Chest pain, unspecified (principal); I25.10 Atherosclerotic heart disease of native coronary artery without angina pectoris; I25.2 Old myocardial infarction; I10 Essential (primary) hypertension; E78.5 Hyperlipidemia, unspecified | CPT/HCPCS: 99212 ==

== ENCOUNTER 2022-03-22 06:03 | Emergency (ER) | payer MEDICARE, SELFPAY ==
--- NOTE | ~2022-03-22 | CT_ITS ---
EXAMINATION: CT ANGIOGRAM CHEST, PE PROTOCOL CLINICAL INFORMATION: Pulmonary embolism COMPARISON: CTA chest 04/22/1999 TECHNIQUE: Multidetector CT pulmonary angiography of the thorax was performed according to the pulmonary embolism protocol after intravenous administration of 100 mL Omnipaque 350. Reformatted coronal and sagittal imaging was performed. 3-D MIP images performed at a dedicated separate workstation. This CT examination was performed using dose optimization techniques as appropriate, variously including the following: *Automated exposure control *Adjustment of mA and/or kV according to patient size (this includes techniques or standardized protocols for targeted exams where dose is matched to indication/reason for exam; i.e. extremities or head) *Use of iterative reconstruction technique DLP: 345 mGy-cm QUALITY: Overall Exam Quality: Satisfactory. Pulmonary Arterial Enhancement: Adequate. Breath Hold: Adequate. Artifacts Impacting Image Quality: None. FINDINGS: VASCULAR: The aorta is normal course and caliber without aneurysm. Pulmonary Artery: No filling defect is identified in the central, lobar, segmental or subsegmental pulmonary arterial branches to suggest pulmonary embolus. NONVASCULAR: THORAX: Thyroid Gland: The visualized thyroid gland is normal. Lymph Nodes: No supraclavicular, axillary, mediastinal or hilar lymphadenopathy is identified. Airways: The trachea and central bronchi are normal. Lungs: No airspace consolidation. No suspicious nodules or masses. Bibasilar atelectatic changes. Pleura: No pleural effusion. No pneumothorax. Upper abdomen: Unremarkable Soft Tissues/Musculoskeletal: There is no acute fracture or significant focal osseous lesion. CT/CT angio chest PE protocol IMPRESSION: 1. No evidence of pulmonary embolism. 2. No acute intrathoracic process.
--- NOTE | 2022-03-22 06:05 | ECG_ITS ---
Test Reason : CP Blood Pressure : / mmHG Vent. Rate : 084 BPM Atrial Rate : 084 BPM P-R Int : 178 ms QRS Dur : 104 ms QT Int : 370 ms P-R-T Axes : -02 -54 061 degrees QTc Int : 437 ms Normal sinus rhythm Left axis deviation Minimal voltage criteria for LVH, may be normal variant ( Nathanael product ) Inferior infarct (cited on or before 04-JUL-2021) Anterior infarct , age undetermined Abnormal ECG When compared with ECG of 04-JUL-2021 07:45, T wave inversion no longer evident in Inferior leads Referred By: Generic ED Physician Electronically Signed By:MARILYN LUNA
[2022-03-22 06:07] VITALS: BP 167/103; PULSE 89; RESP 16; TEMP 36.4; O2SAT 100; BMI 26.4
--- NOTE | 2022-03-22 06:16 | MHC.EDTECH ---
EKG obtained, pt placed on site monitor.
[2022-03-22 06:24] LABS: MANUAL DIFF FLAG NO
[2022-03-22 06:25] VITALS: BP 163/100; PULSE 85; RESP 16; TEMP 37.1; O2SAT 96
[2022-03-22 06:26] LABS: Basophils Percent Auto 0.6 % (0-2); Eosinophils Absolute Auto 0.1 X10*3/uL (0.0-0.4); Hematocrit 48.7 % (42.0-52.0); Hemoglobin 16.5 g/dl (14.0-18.0); Imm Gran Abs Auto 0.02 X10*3/uL (0.00-0.03); Imm Gran Pct Auto 0.3 % (0.0-0.4); Lymphocytes Absolute Auto 1.8 X10*3/uL (1.2-4.9); Lymphocytes Percent Auto 25.8 % (20-40); Mean Corpuscular HGB Conc 33.9 g/dl (31.0-36.0); Mean Corpuscular Hemoglobin 29.1 pg (27.0-33.0); Mean Corpuscular Volume 85.9 fL (80.0-98.0); Mean Platelet Volume 9.7 fL (9.4-12.4); Monocytes Absolute Auto 0.6 X10*3/uL (0.1-1.2); Monocytes Percent Auto 8.1 % (2-11); Neutrophils Absolute Auto 4.6 x10*3/uL (2.0-8.3); Neutrophils Percent Auto 64.2 % (45-73); Platelet Count 228 X10*3/uL (160-400); Red Blood Count 5.67 X10*6/uL (4.60-5.80); Red Cell Distribution Width 13.2 % (11.0-16.0); White Blood Count 7.1 X10*3/uL (4.8-10.8)
[2022-03-22 06:42] LABS: Anion Gap 16 (12-20); Blood Urea Nitrogen 18 mg/dL (9-16); Calcium 9.8 mg/dL (8.4-10.2); Carbon Dioxide 27 mmol/L (22-29); Chloride 98 mmol/L (96-108); Creatinine Clr Calc Pharmacy 57.2; Estimated Glomerular Filt Rate 56; Glucose Random 133 mg/dL (60-115); Potassium 3.3 mmol/L (3.3-5.1); Sodium 138 mmol/L (135-145)
--- NOTE | 2022-03-22 06:47 | PC.NURSE ---
Nursing Assessment: Pt's V/ S are stable, Pt is on the continuos poison information specialist and it shows NSR. Pt has chest pain bilaterally on the side of his chest. IV was inserted 20G on his LAC. Labs has been drawn and EKG was printer and evaluated by the provider. Pt lungs sounds are clear throughout lobes. Pt has no lower extremities edema, +skin tugor. Pt reports he has large prostate and he is frequently urinating.
[2022-03-22 06:49] LABS: Troponin-I High Sensitivity 6.6 ng/L (<3.5-35.0)
--- NOTE | 2022-03-22 07:01 | ED_ITS ---
HPI - Chest Pain General Chief Complaint: Chest Pain Stated Complaint: chest pain for a few days Time Seen by Provider: 03/22/22 07:01 Source: patient Mode of arrival: ambulatory Limitations: no limitations History of Present Illness HPI narrative: Patient presented to the emergency department complaining of chest pain continuously for about 3 days the pain is localized in the left precordium no radiation. No exertional symptoms no diaphoresis. MD complaint: chest pain Pertinent past history: other (Patient a stress test nuclear in October 2021 with a fixed defect but no reversible ischemia) Onset (ago): day(s) (3) Timing of current episode: still present Onset: during rest Pain location: substernal, left chest and right chest Pain radiation: none Severity: moderate Quality: aching Relieving factors: nothing Exacerbating factors: nothing Risk Factors Coronary artery disease risk factors: hypertension Related Data Previous Rx's Medication Instructions Recorded atorvastatin 40 mg tablet 40 mg PO DAILY #90 tabs 07/08/21 lisinopril 40 mg tablet 40 mg PO DAILY 90 days #90 tabs 10/23/21 aspirin 81 mg tablet,delayed 81 mg PO DAILY 90 days #90 tabs 12/02/21 release (Adult Aspirin Regimen) fenofibrate 54 mg tablet 54 mg PO DAILY 90 days #90 tabs 01/07/22 chlorthalidone 25 mg tablet 25 mg PO DAILY 90 days #90 tabs 01/12/22 Allergies Allergy/AdvReac Type Severity Reaction Status Date / Time No Known Allergies Allergy Verified 12/24/21 13:24 [No Known Allergies*] Review of Systems Constitutional: Constitutional: Reports no additional constitutional complaints Eyes: Eyes: Reports no additional eye complaints Respiratory: Respiratory: Reports no additional respiratory complaints Gastrointestinal: Gastrointestinal: Reports no additional gastrointestinal complaints [facility] Past Medical History Medical History Arthritis Asthma Chest pain Dyslipidemia Encounter for physical examination Essential hypertension Former smoker Surgical History History of appendectomy History of hemorrhoidectomy History of hydrocelectomy Family History Family History Father No problems noted. Mother Past heart attack Hypertension Brother HIV (human immunodeficiency virus infection) Brother No problems noted. Sister No problems noted. Sister No problems noted. Social History Social History Housing: Apartment Alcohol intake: current Alcohol intake frequency: 0-2 drinks per day Alcohol type: hard liquor Patient Tobacco Use Status: Former Tobacco user Tobacco use type: Cigarette Smoked in Last 30 Days: Yes e-Cigarette/Vaping Use: Never Used Second Hand Smoke Exposure: No Use of substances other than those prescribed or required for medical reasons: No Substance Use Type: Marijuana Advance Directives: No Advance Directives Information Provided: No service: No Current occupational status: unemployed and disabled Cognitive needs: No Hearing needs: No Vision needs: Yes Physical Exam Vital Signs: Vital Signs: Last Vital Signs Temp 98.1 F 03/22/22 07:03 Pulse 84 03/22/22 10:00 Resp 18 03/22/22 10:00 BP 146/97 H 03/22/22 10:00 Pulse Ox 95 03/22/22 10:00 O2 Del Method 03/22/22 10:00 BMI result Body Mass Index 26.4 Const: General: cooperative Nutritional Appearance: well nourished Orientation/consciousness: patient oriented x3 Limitations: no limitations HEENT: Head: Yes normal to inspection Ears: hearing grossly normal bilaterally General nose exam: Normal external nose present Face and sinus: Yes normal facial exam Mouth: Normal oral and palatal mucosa present Throat: Yes posterior oropharynx normal Neck: Neck: Yes normal visual inspection and Yes full ROM Chest: Chest palpation & inspection: normal inspection of the chest Resp: Effort & Inspection: normal respiratory effort Auscultation: clear to auscultation bilaterally Cardio: Palpation: normal PMI Rate: regular rate Rhythm: regular rhythm GI: Inspection: Yes normal to inspection Palpation (GI): Soft to palpation, not firm and nontender Auscultation: normal bowel sounds : General: Yes no CVA tenderness Back/Spine/Pelvis: Back: no CVA tenderness Skin: General skin exam: no rashes or lesions noted Lesions: no lesions Rashes: no rashes Hair: normal Neuro: General: patient oriented x3 Extrem: General: Yes normal to inspection Course Reevaluation(s) Reevaluation #1: Delta troponin negative CTA of the chest negative at this point I think the patient can be discharged home safely pain is ongoing for 2-3 days and he has negative cardiac marker Time: 10:01 Medications Administered Discontinued Medications Generic Name Dose Route Start Last Admin Trade Name Freq PRN Reason Stop Dose Admin Iohexol 100 ml 03/22/22 08:01 03/22/22 08:01 Iohexol 350 Mg/Ml 100 Ml Infus..Btl IV 03/22/22 08:02 65 ml ONCE ONE Administration Ketorolac Tromethamine 15 mg 03/22/22 07:09 03/22/22 08:13 Ketorolac Tromethamine 15 Mg/Ml Vial IVPUSH 03/22/22 07:10 Not Given ONCE ONE Medical Decision Making Medical Decision Making [facility] Narrative: Patient presented chest pain of about 3 days will do delta troponin he imaging will reassess Differential Diagnosis Differential Diagnoses: The differential diagnosis associated with the presentation includes Atypical chest pain, IL, PE, dissection Admission/Observation Consideration of admission/observation: Escalation of care including admission/observation considered Lab Data [facility] Lab Attestation statement: I reviewed the patient's lab results. 03/22/22 06:15 03/22/22 06:15 Labs: Lab Results 03/22/22 03/22/22 03/22/22 Range/Units 06:15 06:15 06:15 WBC 7.1 (4.8-10.8) X10*3/uL RBC 5.67 (4.60-5.80) X10*6/uL Hgb 16.5 (14.0-18.0) g/dl Hct 48.7 (42.0-52.0) % MCV 85.9 (80.0-98.0) fL MCH 29.1 (27.0-33.0) pg MCHC 33.9 (31.0-36.0) g/dl RDW 13.2 (11.0-16.0) % Plt Count 228 (160-400) X10*3/uL MPV 9.7 (9.4-12.4) fL Immature Gran % (Auto) 0.3 (0.0-0.4) % Neut % (Auto) 64.2 (45-73) % Lymph % (Auto) 25.8 (20-40) % [place] % (Auto) 8.1 (2-11) % Eos % (Auto) 1.0 (0-4) % Baso % (Auto) 0.6 (0-2) % Lymph # (Auto) 1.8 (1.2-4.9) X10*3/uL [place] # (Auto) 0.6 (0.1-1.2) X10*3/uL Eos # (Auto) 0.1 (0.0-0.4) X10*3/uL Baso # (Auto) 0.0 (0.0-0.2) X10*3/uL Abs Immat Gran (auto) 0.02 (0.00-0.03) X10*3/uL Absolute Neuts (auto) 4.6 (2.0-8.3) x10*3/uL Absolute Nucleated RBC 0.000 (0.0-0.012) X10*3/uL Nucleated RBC % (auto) 0.0 (0.0-0.2) /100WBC Sodium 138 (135-145) mmol/L Potassium 3.3 D (3.3-5.1) mmol/L Chloride 98 (96-108) mmol/L Carbon Dioxide 27 (22-29) mmol/L Anion Gap 16 (12-20) BUN 18 H (9-16) mg/dL Creatinine 1.26 (0.5-1.4) mg/dL Estim Creat Clear Calc 57.2 Estimated GFR 56 Random Glucose 133 H (60-115) mg/dL Calcium 9.8 (8.4-10.2) mg/dL Troponin I High Sens 6.6 (<3.5-35.0) ng/L 03/22/22 Range/Units 08:42 WBC (4.8-10.8) X10*3/uL RBC (4.60-5.80) X10*6/uL Hgb (14.0-18.0) g/dl Hct (42.0-52.0) % MCV (80.0-98.0) fL MCH (27.0-33.0) pg MCHC (31.0-36.0) g/dl RDW (11.0-16.0) % Plt Count (160-400) X10*3/uL MPV (9.4-12.4) fL Immature Gran % (Auto) (0.0-0.4) % Neut % (Auto) (45-73) % Lymph % (Auto) (20-40) % [place] % (Auto) (2-11) % Eos % (Auto) (0-4) % Baso % (Auto) (0-2) % Lymph # (Auto) (1.2-4.9) X10*3/uL [place] # (Auto) (0.1-1.2) X10*3/uL Eos # (Auto) (0.0-0.4) X10*3/uL Baso # (Auto) (0.0-0.2) X10*3/uL Abs Immat Gran (auto) (0.00-0.03) X10*3/uL Absolute Neuts (auto) (2.0-8.3) x10*3/uL Absolute Nucleated RBC (0.0-0.012) X10*3/uL Nucleated RBC % (auto) (0.0-0.2) /100WBC Sodium (135-145) mmol/L Potassium (3.3-5.1) mmol/L Chloride (96-108) mmol/L Carbon Dioxide (22-29) mmol/L Anion Gap (12-20) BUN (9-16) mg/dL Creatinine (0.5-1.4) mg/dL Estim Creat Clear Calc Estimated GFR Random Glucose (60-115) mg/dL Calcium (8.4-10.2) mg/dL Troponin I High Sens 6.7 (<3.5-35.0) ng/L Radiology Impression Discussion of test interpretation with radiology: I have reviewed the radiologist's reading. Radiologist Impression: THORAX: Thyroid Gland: The visualized thyroid gland is normal. Lymph Nodes: No supraclavicular, axillary, mediastinal or hilar lymphadenopathy is identified. Airways: The trachea and central bronchi are normal. Lungs: No airspace consolidation. No suspicious nodules or masses. Bibasilar atelectatic changes. Pleura: No pleural effusion. No pneumothorax. Upper abdomen: Unremarkable Soft Tissues/Musculoskeletal: There is no acute fracture or significant focal osseous lesion. CT/CT angio chest PE protocol IMPRESSION: 1.? No evidence of pulmonary embolism. 2.? No acute intrathoracic process. ? External Record Review External record reviewed: Inpatient record Discharge Plan Discharge Clinical Impression: Chest pain Patient Disposition: Home, Self-Care Instructions: Chest Pain (DC) Additional Instructions: Your blood work was good you CT scan was negative you should follow-up with your manager program on Thursday return to the emergency room if you worse Prescriptions: No Action atorvastatin 40 mg tablet 40 mg PO DAILY Qty: 90 3RF lisinopril 40 mg tablet 40 mg PO DAILY 90 Days Qty: 90 1RF fenofibrate 54 mg tablet 54 mg PO DAILY 90 Days Qty: 90 1RF chlorthalidone 25 mg tablet 25 mg PO DAILY 90 Days Qty: 90 1RF aspirin [Adult Aspirin Regimen] 81 mg tablet,delayed release (DR/EC) 81 mg PO DAILY 90 Days Qty: 90 3RF Referrals: Areli Sánchez MD [Primary Care Provider] - 2 days Gian Weir MD [Physician] - 3 days Interventions: ED Discharge Assessment Last Done: 03/22/22 10:21 Discharge Date/Time: 03/22/22 10:23
[2022-03-22 07:03] VITALS: BP 150/93; PULSE 94; RESP 17; TEMP 36.7; O2SAT 92
--- NOTE | 2022-03-22 07:26 | PC.NURSE ---
THIS RN ASSUMED CARE OF THIS PT AT 0700. PT IN BED, NO APPARENT DISTRESS. PT REPORTS CHEST PAIN /, PAIN MED ORDERED AND OFFERED, PT REFUSED PAIN MED STATES I DON'T BELIEVE IN PAIN MEDS, IT ONLY MASKS THE PROBLEM NO OTHER COMPLAINTS.
[2022-03-22 08:00] VITALS: BP 119/95; PULSE 78; RESP 16; O2SAT 95
[2022-03-22] MEDS: iohexoL 350 MG/ML 100 ML INFUS..BTL IV (08:01)
[2022-03-22 09:09] LABS: Troponin-I High Sensitivity 6.7 ng/L (<3.5-35.0)
[2022-03-22 10:00] VITALS: BP 146/97; PULSE 84; RESP 18; O2SAT 95
== END 2022-03-22 10:23 | disposition home or self-care (01) ==
PROVIDERS: Emergency Provider Emergency Medicine; PCP Internal Medicine
DX: R07.9 Chest pain, unspecified (principal); I10 Essential (primary) hypertension; E78.5 Hyperlipidemia, unspecified; F12.90 Cannabis use, unspecified, uncomplicated; Z87.891 Personal history of nicotine dependence; Z79.02 Long term (current) use of antithrombotics/antiplatelets; Z79.899 Other long term (current) drug therapy; Z79.82 Long term (current) use of aspirin
CPT/HCPCS: 36415; 71275; 80048; 84484; 85025; 93005; 99284; 99285; Q9967

== ENCOUNTER 2022-04-18 08:58 | Outpatient (REF) | payer MEDICARE, SELFPAY ==
[2022-04-18 09:56] LABS: Alanine Aminotransferase 44 U/L (0-40); Albumin Level 4.4 g/dL (3.5-5.0); Alkaline Phosphatase 36 U/L (39-117); Anion Gap 14 (12-20); Aspartate Amino Transferase 40 U/L (5-37); Bilirubin Total 1.2 mg/dL (0.0-1.0); Blood Urea Nitrogen 18 mg/dL (9-16); Calcium 9.7 mg/dL (8.4-10.2); Carbon Dioxide 27 mmol/L (22-29); Chloride 102 mmol/L (96-108); Cholesterol 146 mg/dL; Estimated Glomerular Filt Rate 60; Glucose Fasting 111 mg/dL (60-99); HDL Cholesterol 22 mg/dL; LDL Cholesterol Calculated 87 mg/dl; Potassium 3.4 mmol/L (3.3-5.1); Sodium 140 mmol/L (135-145); Total Protein 6.7 g/dL (6.5-8.0); Triglycerides 185 mg/dL
== END 2022-04-18 08:59 | disposition home or self-care (01) ==
LOC: HO.LAB 08:58
PROVIDERS: PCP Internal Medicine; Visit Provider Internal Medicine
DX: E78.5 Hyperlipidemia, unspecified (principal)
CPT/HCPCS: 36415; 80053; 80061

== ENCOUNTER → 2022-06-26 12:34 | Outpatient (BNVA) | payer MEDICARE, SELFPAY | PROVIDERS: PCP Internal Medicine; Referring Provider Internal Medicine; Visit Provider Internal Medicine | DX: I25.10 Atherosclerotic heart disease of native coronary artery without angina pectoris (principal); I10 Essential (primary) hypertension; E78.5 Hyperlipidemia, unspecified | CPT/HCPCS: 99212 ==

== ENCOUNTER 2022-07-08 08:45 | Outpatient (REF) | payer MEDICARE, SELFPAY ==
[2022-07-08 11:07] LABS: Alanine Aminotransferase 35 U/L (0-40); Albumin Level 4.2 g/dL (3.5-5.0); Alkaline Phosphatase 34 U/L (39-117); Anion Gap 13 (12-20); Aspartate Amino Transferase 34 U/L (5-37); Blood Urea Nitrogen 17 mg/dL (9-16); Calcium 9.8 mg/dL (8.4-10.2); Carbon Dioxide 29 mmol/L (22-29); Chloride 100 mmol/L (96-108); Cholesterol 127 mg/dL; Estimated Glomerular Filt Rate > 60; Glucose Fasting 98 mg/dL (60-99); HDL Cholesterol 24 mg/dL; LDL Cholesterol Calculated 75 mg/dl; Potassium 3.5 mmol/L (3.3-5.1); Sodium 138 mmol/L (135-145); Total Protein 6.5 g/dL (6.5-8.0); Triglycerides 144 mg/dL
[2022-07-08 11:25] LABS: Vitamin D 25-OH Total 54.4 ng/mL (>30)
== END 2022-07-08 08:46 | disposition home or self-care (01) ==
LOC: HO.LAB 08:45
PROVIDERS: PCP Internal Medicine; Visit Provider Internal Medicine
DX: E55.9 Vitamin D deficiency, unspecified (principal); E78.2 Mixed hyperlipidemia
CPT/HCPCS: 36415; 80053; 80061; 82306

== ENCOUNTER 2022-07-17 15:22 | Outpatient (REF) | payer MEDICARE, SELFPAY ==
--- NOTE | ~2022-07-17 | US_ITS ---
EXAMINATION: US PELVIS, LIMITED/FOLLOW UP CLINICAL INFORMATION: Bilateral inguinal hernias COMPARISON: None available. TECHNIQUE: Transabdominal views of the soft tissues of the bilateral inguinal canals were obtained. FINDINGS: Left fat-containing inguinal hernia with a 3 cm neck. No evidence of right inguinal hernia. US/US pelvic limited IMPRESSION: 1. Left fat-containing inguinal hernia with a 3 cm neck. 2. No evidence of right inguinal hernia.
== END 2022-07-17 15:23 | disposition home or self-care (01) ==
LOC: HO.US 15:22
PROVIDERS: PCP Internal Medicine; Visit Provider Internal Medicine
DX: K40.90 Unilateral inguinal hernia, without obstruction or gangrene, not specified as recurrent (principal)
CPT/HCPCS: 76857

== ENCOUNTER → 2022-07-28 08:13 | Outpatient (BNVA) | payer MEDICARE, SELFPAY | PROVIDERS: PCP Internal Medicine; Referring Provider Internal Medicine; Visit Provider Surgery | DX: K40.90 Unilateral inguinal hernia, without obstruction or gangrene, not specified as recurrent (principal) | CPT/HCPCS: 99202 ==

== ENCOUNTER 2022-08-25 06:10 | Day surgery (SDC) | payer MEDICARE, SELFPAY ==
[2022-08-21 09:42] VITALS: BMI 27.0
--- NOTE | 2022-08-22 09:38 | HO.ANESPROP2 ---
Documented by User: Marilu Dorsey NP 08/22/22 09:46 HPI - Anesthesia Eval Consult details Narrative: 72yo M for Left Open Hernia Repair Inguinal w/mesh PCP eval 06/2022 - stable without concerning symptoms Cardiac eval 06/2022 - work up showed evidence of old infarct (regional wma and severe septal asymmetric hypertrophy), report of 15/09 chest pain is atypical. CAD, HTN, HLD stable with continuation of current tx. [facility] Active Problems Active Problems: All Active Problems (Updated 08/21/22 @ 09:20 by Beatrice Aldrich RN) CAD (coronary artery disease) (Acute) Transaminitis (Acute) Old inferior wall myocardial infarction (Acute) Mixed hyperlipidemia (Acute) Impaired glucose tolerance (Acute) Inguinal hernia (Acute) Screen for colon cancer (Acute) Rash (Acute) Chest pain (Acute) Encounter for physical examination (Acute) Former smoker (Acute) Dyslipidemia (Acute) Essential hypertension (Acute) Past Medical History Medical History Alcohol abuse Arthritis Asthma CAD (coronary artery disease) Chest pain Dyslipidemia Encounter for physical examination Essential hypertension Former smoker Myocardial infarction Family History Family History Father No problems noted. Mother Past heart attack Hypertension Brother HIV (human immunodeficiency virus infection) Brother No problems noted. Sister No problems noted. Sister No problems noted. Surgical History Surgical History History of appendectomy History of hemorrhoidectomy History of hydrocelectomy Social History Social History Housing: Apartment Are you a primary wound care physician to a significant other at home: No Do you presently have visiting nurse or other home services: No Alcohol intake: current Alcohol intake frequency: former alcohol drinker Patient Tobacco Use Status: Former Tobacco user Quit Date: Tobacco use type: Cigarette e-Cigarette/Vaping Use: Never Used Second Hand Smoke Exposure: No Use of substances other than those prescribed or required for medical reasons: Yes Substance Use Type: Marijuana Substance Use Type Other:: advised to refrain leading up to surgery Substance Use Frequency: Weekly Have you been hit, kicked, punched, or otherwise hurt by someone within the past year? If so, by whom?: No Are you DNR?: No Advance Directives: Yes Advance Directives Information Provided: Yes Advance Directives on File: Yes Advance Directives Date on File: 10/29/18 Recently lost weight without trying: No Eating poorly because of decreased appetite: No Nutrition Risks: No Nutritional Risk Poor oral hygiene: Yes (broken teeth) service: No Current occupational status: unemployed and disabled Cognitive needs: No Hearing needs: No Vision needs: Yes Meds Allergies Allergy/AdvReac Type Severity Reaction Status Date / Time No Known Allergies Allergy Verified 08/21/22 13:42 [No Known Allergies*] Exam Exam Date and Time: August 22, 2022 0938 Height,Weight and Vital Signs: Height 5 ft 10 in Weight 85.275 kg Pertinent Lab Results Pertinent Lab Results: Laboratory Tests 03/22/22 07/08/22 06:15 09:07 WBC 7.1 Hgb 16.5 Hct 48.7 Plt Count 228 Sodium 138 Potassium 3.5 Chloride 100 Carbon Dioxide 29 BUN 17 H Creatinine 1.04 Narrative Narrative: EKG 02/2022 Vent. Rate : 084 BPM ? ? Atrial Rate : 084 BPM ?? P-R Int : 178 ms? QRS Dur : 104 ms ? ? QT Int : 370 ms ? ? ? P-R-T Axes : -02 -54 061 degrees ?? QTc Int : 437 ms ? Normal sinus rhythm Left axis deviation Minimal voltage criteria for LVH, may be normal variant ( Nathanael product ) Inferior infarct (cited on or before 04-JUL-2021) Anterior infarct , age undetermined Abnormal ECG When compared with ECG of 04-JUL-2021 07:45, T wave inversion no longer evident in Inferior leads ECHO 2021 Conclusions: - The left ventricular systolic function is normal.? The ? calculated ejection fraction is 56% by biplane method. ? - There is evidence of regional wall motion abnormalities. ? ? ? - There is moderately increased left ventricular wall thickness. - There is severe septal asymmetric hypertrophy. ? - There is mild calcification of the aortic valve. ? ? ? NM cardiolite stress test 2021 Impression: ? 1.? Basal inferior infarction with no reversible ischemia 2.? Gated LVEF is 53% 3. Transient ischemic dilatation not present ? Stress EKG is borderline for ischemia Assessment and Plan Assessment Anesthesia Assessment: Chart Reviewed Documented by User: Milly Cortes MD 08/25/22 08:12 [facility] Past Medical History Medical History Alcohol abuse Arthritis Asthma CAD (coronary artery disease) Chest pain Dyslipidemia Encounter for physical examination Essential hypertension Former smoker Myocardial infarction Family History Family History Father No problems noted. Mother Past heart attack Hypertension Brother HIV (human immunodeficiency virus infection) Brother No problems noted. Sister No problems noted. Sister No problems noted. Family history of problems with anesthesia: No Surgical History Surgical History History of appendectomy History of hemorrhoidectomy History of hydrocelectomy History of Problems with Anesthesia: No Social History Social History Housing: Apartment Are you a primary wound care physician to a significant other at home: No Do you presently have visiting nurse or other home services: No Alcohol intake: current Alcohol intake frequency: former alcohol drinker Patient Tobacco Use Status: Former Tobacco user Quit Date: Tobacco use type: Cigarette e-Cigarette/Vaping Use: Never Used Second Hand Smoke Exposure: No Use of substances other than those prescribed or required for medical reasons: Yes Substance Use Type: Marijuana Substance Use Type Other:: advised to refrain leading up to surgery Substance Use Frequency: Weekly Have you been hit, kicked, punched, or otherwise hurt by someone within the past year? If so, by whom?: No Are you DNR?: No Advance Directives: Yes Advance Directives Information Provided: Yes Advance Directives on File: Yes Advance Directives Date on File: 10/29/18 Recently lost weight without trying: No Eating poorly because of decreased appetite: No Nutrition Risks: No Nutritional Risk Poor oral hygiene: Yes (broken teeth) service: No Current occupational status: unemployed and disabled Cognitive needs: No Hearing needs: No Vision needs: Yes Meds Allergies Allergy/AdvReac Type Severity Reaction Status Date / Time No Known Allergies Allergy Verified 08/21/22 13:42 [No Known Allergies*] Exam Airway Mallampati Class: II TM Dist: >3cm Neck ROM: Full Loose/Missing/Broken Teeth: No Heart: rr Lungs: cts Assessment and Plan Assessment Anesthesia Assessment: Anesthesia Plan Discussed Final Anesthetic Review Family History of Problems with Anesthesia: No History of Problems with Anesthesia: No NPO: Yes ASA Class: II Final Preanesthetic Review: No Changes in Pt Med Stat, Meds/Allgs Chart Reviewed, Consent Obtained/Reviewed and Anes Risks/Benef Reviewed Patient Risk: Intermediate Procedure Risk: Intermediate Anesthetic Plan Anesthetic Plan: GA Disposition: Standard PACU
--- NOTE | 2022-08-22 16:20 | MHC.SHP ---
Pre-Procedural Eval Section A Date of Service: 08/22/22 The patient is an INPATIENT: No Changes since office visit: No Cold of Flu in the past 2 weeks, No New Medical Problems, No Changes in Medication and No Patient answered all questions The History & Physical has been completed within 30 days and I have reviewed it.: Yes Section B Chief Complaint: Unilateral inguinal hernia, without obstruction or Allergies: Allergies Allergy/AdvReac Type Severity Reaction Status Date / Time No Known Allergies Allergy Verified 08/21/22 13:42 [No Known Allergies*] Plan I have reviewed the history and physical and performed a pertinent physical examination on my patient. No changes have occurred unless specified. Time Spent With Patient Time: Total time managing care of this patient today ____ minutes.
--- NOTE | 2022-08-25 07:21 | PC.NURSE ---
lower groin rash noted. md phillips by bedside to evaluate. ok to proceed. patient has a follow up appt in March for the rash.
[2022-08-25 07:33] VITALS: BP 125/81; PULSE 58; RESP 16; TEMP 36.4; O2SAT 95
[2022-08-25 08:12] VITALS: PULSE 55; RESP 16; O2SAT 97
--- NOTE | 2022-08-25 09:02 | W.PM.OPN ---
Operative Note Operative Note Date of Service: 08/25/22 Narrative: Preoperative diagnosis: [] Left inguinal hernia Postop diagnosis: [] Same Procedure [] open repair left inguinal hernia with Bard mesh Surgeon: [] Julien Rug Cleaning Supervisor: [] marisol Boyd Type of Anesthesia: [] MAC Indication for surgery: [] Large direct left inguinal hernia. No indirect hernia demonstrated. Findings: [] Patient brought to the operating room, placed on the operative table supine position, after adequate level of MAC anesthesia was induced, the left groin was prepped and draped in usual sterile fashion and an ilioinguinal block as well as infiltration of the incision site with 0.5% Marcaine/1% lidocaine was undertaken. A small left stoney inguinal incision was made and carried down through skin, subcutaneous tissue, Lyla's fascia. External oblique fibers were opened there direction with care to isolate and preserve the ilioinguinal nerve throughout the procedure. Spermatic cord was identified and retracted from the field. No indirect hernia was demonstrated. A large direct hernia was reduced. A Bard plug was placed in this defect, and sutured inferiorly to the inguinal ligament, and superiorly to the transversalis fascia using interrupted 0 Ethibond suture. At completion the procedure, mesh was in good position with no tension. Wound was irrigated, secured hemostasis, and closed in the following manner; external oblique fascia was closed using running 2-0 Vicryl suture. Lyla's fascia was reapproximated using interrupted 3-0 Vicryl sutures. Interrupted inverted deep dermal 3-0 Vicryl sutures followed by running subcuticular 4-0 Vicryl sutures were placed. Steri-Strips and sterile dressings were applied. Ipsilateral testicle was intrascrotal at completion the procedure. Sponge, needle, and instrument counts reported correct. Patient tolerated the procedure well and emerged from anesthesia stable condition. EBL minimal
[2022-08-25 09:03] VITALS: BP 101/57; PULSE 75; RESP 16; TEMP 36.4; O2SAT 96
[2022-08-25 09:18] VITALS: BP 118/75; PULSE 71; RESP 18; TEMP 36.2; O2SAT 95
== END 2022-08-25 09:47 | disposition home or self-care (01) ==
PROVIDERS: PCP Internal Medicine; Visit Provider Surgery
PROC: (CPT 49505; principal; 2022-08-25 08:30)
DX: K40.90 Unilateral inguinal hernia, without obstruction or gangrene, not specified as recurrent (principal); I10 Essential (primary) hypertension; J45.909 Unspecified asthma, uncomplicated
CPT/HCPCS: 49505; 94640; C1781; J0690; J3010

== ENCOUNTER 2022-09-03 08:40 | Outpatient (AMB) | payer MEDICARE, SELFPAY ==
[2022-09-03 08:52] VITALS: BP 120/77; PULSE 65
--- NOTE | 2022-09-03 08:52 | MHC.OFFVIS ---
Intake Vital Signs 09/03/22 08:52 Weight 183 lb BP 120/77 Blood Pressure Location Rt brachial Position Sitting Pulse 65 Intake Visit Reasons: S/P LIH w/mesh Intake Note: Patient here s/p LIH w/mesh. Patient reports incisions healing well. Denies bleeding, oozing or itch. Taking pain meds at night. 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 He is doing well. He is tolerating a diet. He is having normal bowel habits. He is slowly but steadily increasing his activity level. Patient has minimal incisional discomfort. [facility] Medical History (Updated 09/03/22 @ 09:21 by Farhat Victoria MD) Alcohol abuse Arthritis Asthma CAD (coronary artery disease) Chest pain Dyslipidemia Encounter for physical examination Essential hypertension Former smoker Left inguinal hernia (08/25/22) Myocardial infarction Surgical History History of appendectomy History of hemorrhoidectomy History of hydrocelectomy Family History Father No problems noted. Mother Past heart attack Hypertension Brother HIV (human immunodeficiency virus infection) Brother No problems noted. Sister No problems noted. Sister No problems noted. Social History Housing: Apartment Are you a primary critical care specialist to a significant other at home: No Do you presently have visiting nurse or other home services: No Alcohol intake: current Alcohol intake frequency: former alcohol drinker Patient Tobacco Use Status: Former Tobacco user Quit Date: Tobacco use type: Cigarette e-Cigarette/Vaping Use: Never Used Second Hand Smoke Exposure: No Substance Use Type: Marijuana Advance Directives Date on File: 10/29/18 service: No Current occupational status: unemployed and disabled Cognitive needs: No Hearing needs: No Vision needs: Yes Physical Exam Vital Signs: Last Vital Signs Pulse 65 09/03/22 08:52 BP 120/77 09/03/22 08:52 GI Other: Abdomen soft. Incision clean dry and intact. Mild ecchymosis is resolving according to the patient. Assessment & Plan Assessment & Plan (1) Left inguinal hernia: Onset Date: 08/25/22 Comment: Dr. Farhat Victoria Code(s): K40.90 - Unilateral inguinal hernia, without obstruction or gangrene, not specified as recurrent Plan Patient has been given local wound instructions, and will follow-up p.r.n. Coding Level of Care Code Global (38135) Diagnoses Left inguinal hernia K40.90
== END 2022-09-03 09:01 | disposition home or self-care (01) ==
PROVIDERS: PCP Internal Medicine; Visit Provider Surgery
DX: K40.90 Unilateral inguinal hernia, without obstruction or gangrene, not specified as recurrent (principal)
CPT/HCPCS: 99024

== ENCOUNTER → 2022-09-03 08:40 | Outpatient (BNVA) | payer MEDICARE, SELFPAY | PROVIDERS: PCP Internal Medicine; Visit Provider Surgery ==

== ENCOUNTER 2022-09-16 15:57 | Outpatient (AMB) | payer MEDICARE, SELFPAY ==
--- NOTE | 2022-09-16 16:06 | MHC.PC.OV ---
Vital Signs 09/16/22 16:07 Height 5 ft 10 in Weight 183 lb BMI 26.3 BP 130/80 Blood Pressure Location Lt brachial Position Sitting Intake Visit Reasons: follow up Intake Note: Patient here for a follow up Hernia surgery [employer] Required: No Accompanied by: Self / Same As Patient Allergies No Known Allergies [No Known Allergies*] Allergy (Verified 09/16/22 16:28) Medication List - Last Reconciled 09/16/22 by Areli Howell MD aspirin (Adult Aspirin Regimen) 81 mg PO DAILY 90 days atorvastatin 40 mg PO DAILY chlorthalidone 25 mg PO DAILY 90 days fenofibrate 54 mg PO DAILY 90 days hydrocodone-acetaminophen 5-325 mg 1 tab PO Q4-6H PRN lisinopril 40 mg PO DAILY 90 days Tobacco use date assessed: 07/07/22 Fall risk assessment: No Falls in past year Last assessed Fall Risk: 09/16/22 Dental Screening Dental Screen Date: 09/16/22 Did you have a dental visit in the last 12 months?: Yes Did you have a dental problem in the last 6 months where you did not have access to dental care?: No Was dental information given to patient?: Patient has dentist HPI HPI Comments History of Present Illness Details This is a 72-year-old male with hypertension and dyslipidemia that comes today for follow-up on blood pressure after having left herniorectomy 08/25/2022. Denies any fever or constipation. Incision looks good. No redness. Blood pressure stable. Cholesterol well controlled with statins. No chest pain or shortness of breath. [facility] Medical History Alcohol abuse Arthritis Asthma CAD (coronary artery disease) Chest pain Dyslipidemia Encounter for physical examination Essential hypertension Former smoker Left inguinal hernia (08/25/22) Myocardial infarction Surgical History History of appendectomy History of hemorrhoidectomy History of hydrocelectomy Family History Father No problems noted. Mother Past heart attack Hypertension Brother HIV (human immunodeficiency virus infection) Brother No problems noted. Sister No problems noted. Sister No problems noted. Social History Housing: Apartment Are you a primary floor care technician to a significant other at home: No Do you presently have visiting nurse or other home services: No Alcohol intake: current Alcohol intake frequency: former alcohol drinker Patient Tobacco Use Status: Former Tobacco user Quit Date: Tobacco use type: Cigarette e-Cigarette/Vaping Use: Never Used Second Hand Smoke Exposure: No Substance Use Type: Marijuana Advance Directives Date on File: 10/29/18 service: No Current occupational status: unemployed and disabled Cognitive needs: No Hearing needs: No Vision needs: Yes Questionnaire Thrive Questionnaire Date Thrive assessed: 07/07/22 TRACIE-7 AMB Questionnaire TRACIE-7 Date TRACIE - 7 assessed: 07/07/22 Source: Developed by Drs. Lele Castellano, Emily Sue, Ruben Stern and colleagues, with an educational chris from [employer]) by [employer]. Review of Systems Const All systems reviewed & are unremarkable except as noted in HPI and below Eyes Reports no additional complaints, Denies change in vision and Denies other visual disturbances Card Denies chest pain at rest, Denies chest pain with activity, Denies edema, Denies irregular heart rhythm, Denies claudication, Denies dyspnea, Denies dyspnea on exertion, Denies orthopnea, Denies paroxysmal nocturnal dyspnea and Denies slow heart rate Resp Denies cough, Denies dyspnea and Denies dyspnea on exertion GI Denies abdominal pain, Denies change in bowel habits, Denies excessive flatus, Denies nausea and Denies vomiting Denies urinary hesitancy, Denies urinary incontinence and Denies urinary urgency Musc Denies abnormal gait, Denies atrophy, Denies deformity and Denies limited range of motion Skin/Breast Denies bleeding lesions, Denies changing lesions and Denies rash Neuro Denies abnormal gait and Denies lack of coordination Physical exam (Primary Care) Vital Signs: Last Vital Signs BP 130/80 09/16/22 16:07 BMI result Body Mass Index 26.3 Tobacco/Smoking Status: Tobacco use Status Tobacco use date assessed 07/07/22 09/16/22 16:13 Patient Tobacco Use Status Former Tobacco user 09/16/22 16:13 Tobacco use type Cigarette 09/16/22 16:13 e-Cigarette/Vaping Use Never Used 09/16/22 16:13 Thrive Assessment: Date of Thrive Assessment Date Thrive assessed 07/07/22 09/16/22 16:13 Eyes General: appearance normal, both eyes and all related structures Eyelids: Yes eyelids normal Conjunctivae: conjunctivae normal Neck Neck: Yes normal visual inspection and Yes supple Resp Effort & Inspection: normal respiratory effort Auscultation: clear to auscultation bilaterally Cardio Jugular venous distension: no JVD Rate: regular rate Rhythm: regular rhythm Heart sounds: S1 normal heart sound present and S2 normal heart sound present Extrem General: Yes full ROM Assessment and Plan Assessment & Plan (1) Essential hypertension: Code(s): I10 - Essential (primary) hypertension Plan: Continue lisinopril and chlorthalidone. Blood pressure goal is equal or less than 130/80 (2) Dyslipidemia: Code(s): E78.5 - Hyperlipidemia, unspecified Plan: Continue statins and fibrates. Coding Level of Care Code Est Pt Level 3 (19615) Diagnoses Essential hypertension I10 Dyslipidemia E78.5 Time Spent (min) 18
[2022-09-16 16:07] VITALS: BP 130/80; BMI 26.3
== END 2022-09-16 16:33 | disposition home or self-care (01) ==
PROVIDERS: PCP Internal Medicine; Visit Provider Internal Medicine
DX: I10 Essential (primary) hypertension (principal); E78.5 Hyperlipidemia, unspecified
CPT/HCPCS: 99213

== ENCOUNTER → 2022-09-30 08:29 | Outpatient (BNVA) | payer MEDICARE, SELFPAY | PROVIDERS: PCP Internal Medicine; Visit Provider Nurse Practitioner Family ==

== ENCOUNTER 2022-12-30 09:18 | Emergency (ER) | payer MEDICARE, SELFPAY ==
[2022-12-30 09:47] VITALS: BP 118/88; PULSE 65; RESP 20; TEMP 36.3; O2SAT 95; BMI 26.9
--- NOTE | 2022-12-30 12:39 | ED_ITS ---
HPI - Skin/Abscess/Foreign Bdy General Chief complaint: Skin/Abscess/Foreign Body Stated complaint: Rash Time Seen by Provider: 12/30/22 10:49 Source: patient and RN notes reviewed Mode of arrival: ambulatory Limitations: no limitations History of Present Illness HPI narrative: This is a 72-year-old male, with a history of alcohol abuse, arthritis, asthma, CAD, hyperlipidemia, presenting to the emergency department for evaluation of groin rash since September 16. Patient states that he had a left inguinal hernia surgery performed in August. He states that he noticed a rash develop several days later. He has been seen multiple times for this rash and was prescribed prednisone has tried [id number] powders without any relief. Patient reports that the rash is itchy and slightly painful. He denies any fevers or chills. He is not sexually active. No testicular swelling or pain. No urinary symptoms. No abdominal pain, nausea, vomiting or diarrhea. No other complaints or concerns at this time. MD complaint: rash Location: genitals Quality: burning Pain Consistency: constant Relieving factors: none Exacerbating factors: none Context: none Associated symptoms: denies other symptoms Treatments prior to arrival: none Related Data Previous Rx's Medication Instructions Recorded aspirin 81 mg tablet,delayed 81 mg PO DAILY 90 days #90 tabs 12/02/21 release (Adult Aspirin Regimen) atorvastatin 40 mg tablet 40 mg PO DAILY #90 tabs 08/09/22 hydrocodone 5 mg-acetaminophen 325 1 tab PO Q4-6H PRN pain #30 tabs 08/25/22 mg tablet lisinopril 40 mg tablet 40 mg PO DAILY 90 days #90 tabs 10/23/22 chlorthalidone 25 mg tablet 25 mg PO DAILY 90 days #90 tabs 12/27/22 fenofibrate 54 mg tablet 54 mg PO DAILY 90 days #90 tabs 12/27/22 clotrimazole 1 % topical cream 1 appl topical BID 3 weeks #30 12/30/22 grams Allergies Allergy/AdvReac Type Severity Reaction Status Date / Time No Known Allergies Allergy Verified 12/30/22 09:50 [No Known Allergies*] Review of Systems Review of Systems: Yes all other systems are reviewed and are negative PMFSH Past Medical History Attestation statement: The following information was validated with the patient. Medical History Left inguinal hernia (08/25/22) Alcohol abuse Myocardial infarction CAD (coronary artery disease) Asthma Chest pain Encounter for physical examination Former smoker Dyslipidemia Essential hypertension Arthritis Surgical History History of hydrocelectomy History of hemorrhoidectomy History of appendectomy Family History Family History Father No problems noted. Mother Past heart attack Hypertension Brother HIV (human immunodeficiency virus infection) Brother No problems noted. Sister No problems noted. Sister No problems noted. Social History Social History Housing: Apartment Are you a primary rn home care to a significant other at home: No Do you presently have visiting nurse or other home services: No Alcohol intake: current Alcohol intake frequency: former alcohol drinker Patient Tobacco Use Status: Former Tobacco user Quit Date: Tobacco use type: Cigarette e-Cigarette/Vaping Use: Never Used Second Hand Smoke Exposure: No Substance Use Type: Marijuana Advance Directives: Yes Advance Directives on File: Yes Advance Directives Date on File: 10/29/18 service: No Current occupational status: unemployed and disabled Cognitive needs: No Hearing needs: No Vision needs: Yes Physical Exam Vital Signs: Vital Signs: Last Vital Signs Temp 97.4 F 12/30/22 09:47 Pulse 65 12/30/22 09:47 Resp 20 12/30/22 09:47 BP 118/88 12/30/22 09:47 Pulse Ox 95 12/30/22 09:47 O2 Del Method Room Air 12/30/22 09:47 BMI result Body Mass Index 26.9 Const: Other: General: Awake, alert, and oriented X3. No acute distress. HEENT: Normal inspection CVS: Normal heart rate and rhythm. Pulses normal. Respiratory: No respiratory distress Skin: intertriginous regions in the groin with erythematous, raised rash, no warmth, no drainage, does not extend to perianal region. Uncircumcised, no edema or edema noted, nontender. Physical Education Department Chair, Bonilla RN present during the entire examination. Extremities: Normal to inspection Neuro: Oriented X 3. No motor deficit. No sensory deficit. Medical Decision Making Medical Decision Making MDM Narrative: This is a 72-year-old male presenting to the emergency department for evaluation of groin rash intermittently for the last 4 months. Patient has been seen previously by primary care physician who has prescribed him prednisone which did not provide him with any relief. Rash is itchy. On arrival, vital signs within normal limits. Physical exam findings concerning for tinea cruris. Will treat with topical antifungal. Given return precautions. Patient understands and agrees with plan. Differential Diagnosis Differential Diagnoses: The differential diagnosis associated with the presentation includes Cellulitis, folliculitis, tinea cruris, contact dermatitis Discharge Plan Discharge Clinical Impression: Tinea cruris Patient Disposition: Home, Self-Care Instructions: Charlie Larkin (ED) Additional Instructions: You presented to the emergency department with a rash. This rash appears to be fungal. Antibiotics will not a treat this type of rash, you need to be on topical antifungals. Please use topical cream as directed. Keep area clean and dry. Call your primary care physician today for follow-up. If any new or worsening symptoms occur, including fevers, chills, chest pain, shortness breath, worsening redness, swelling, testicular pain, please return for re-evaluation. Prescriptions: New clotrimazole 1 % cream 1 appl topical BID 21 Days Qty: 30 0RF No Action atorvastatin 40 mg tablet 40 mg PO DAILY Qty: 90 3RF lisinopril 40 mg tablet 40 mg PO DAILY 90 Days Qty: 90 1RF fenofibrate 54 mg tablet 54 mg PO DAILY 90 Days Qty: 90 1RF chlorthalidone 25 mg tablet 25 mg PO DAILY 90 Days Qty: 90 1RF hydrocodone-acetaminophen 5-325 mg tablet 1 tab PO Q4-6H PRN (Reason: pain) Qty: 30 0RF Rx Instructions: Partial Fill upon patient request. aspirin [Adult Aspirin Regimen] 81 mg tablet,delayed release (DR/EC) 81 mg PO DAILY 90 Days Qty: 90 3RF
== END 2022-12-30 13:09 | disposition home or self-care (01) ==
PROVIDERS: Emergency Provider Student in an Organized Health Care Education/Training Program; PCP Internal Medicine
DX: B35.6 Tinea cruris (principal); I25.2 Old myocardial infarction; I10 Essential (primary) hypertension; E78.5 Hyperlipidemia, unspecified; Z87.891 Personal history of nicotine dependence
CPT/HCPCS: 99283

== ENCOUNTER 2023-02-19 13:47 | Outpatient (AMB) | payer MEDICARE, SELFPAY ==
[2023-02-19 13:51] VITALS: BP 138/82; BMI 27.4
--- NOTE | 2023-02-19 13:51 | MHC.PC.OV ---
Vital Signs 02/19/23 13:51 Height 5 ft 10 in Weight 191 lb BMI 27.4 BP 138/82 Blood Pressure Location Lt brachial Position Sitting Intake Visit Reasons: bp Intake Note: Patient here for a follow up BP, c/o a cold Tax Map Technician Required: No Accompanied by: Self / Same As Patient Allergies No Known Allergies [No Known Allergies*] Allergy (Verified 02/19/23 14:01) Medication List - Last Reconciled 02/19/23 by Areli Howell MD aspirin (Adult Aspirin Regimen) 81 mg PO DAILY 90 days atorvastatin 40 mg PO DAILY chlorthalidone 25 mg PO DAILY 90 days clotrimazole 1% 1 appl topical BID 3 weeks fenofibrate 54 mg PO DAILY 90 days hydrocodone-acetaminophen 5-325 mg 1 tab PO Q4-6H PRN lisinopril 40 mg PO DAILY 90 days Tobacco use date assessed: 07/07/22 Fall risk assessment: No Falls in past year Last assessed Fall Risk: 02/19/23 Dental Screening Dental Screen Date: 02/19/23 Did you have a dental visit in the last 12 months?: Yes Did you have a dental problem in the last 6 months where you did not have access to dental care?: No Was dental information given to patient?: Patient has dentist HPI HPI Comments History of Present Illness Details This is a 72-year-old male with hypertension and mixed hyperlipidemia that complains of nasal congestion as well as occasional cough that started about 2 weeks ago. No fever. He also has some testicular swelling and tenderness that started few weeks ago. No chest pain or shortness of breath. Blood pressure stable. Cholesterol and triglycerides are well controlled with medications. [facility] Medical History (Updated 02/19/23 @ 14:10 by Areli Howell MD) Left inguinal hernia (08/25/22) Alcohol abuse Myocardial infarction CAD (coronary artery disease) Asthma Chest pain Encounter for physical examination Former smoker Dyslipidemia Essential hypertension Arthritis Surgical History History of hydrocelectomy History of hemorrhoidectomy History of appendectomy Family History Father No problems noted. Mother Past heart attack Hypertension Brother HIV (human immunodeficiency virus infection) Brother No problems noted. Sister No problems noted. Sister No problems noted. Social History (Updated 02/19/23 @ 14:04 by Areli Howell MD) Housing: Apartment Are you a primary intensive care specialist to a significant other at home: No Do you presently have visiting nurse or other home services: No Alcohol intake: former Patient Tobacco Use Status: Former Tobacco user Quit Date: Tobacco use type: Cigarette e-Cigarette/Vaping Use: Never Used Second Hand Smoke Exposure: No Substance Use Type: Marijuana Advance Directives Date on File: 10/29/18 service: No Current occupational status: unemployed and disabled Cognitive needs: No Hearing needs: No Vision needs: Yes Questionnaire Thrive Questionnaire Date Thrive assessed: 07/07/22 TRACIE-7 AMB Questionnaire TRACIE-7 Date TRACIE - 7 assessed: 07/07/22 Source: Developed by Drs. Lele Castellano, Emily Sue, Ruben Stern and colleagues, with an educational chris from [employer]. Review of Systems Const All systems reviewed & are unremarkable except as noted in HPI and below Eyes Reports no additional complaints, Denies change in vision and Denies other visual disturbances Card Denies chest pain at rest, Denies chest pain with activity, Denies edema, Denies irregular heart rhythm, Denies claudication, Denies dyspnea, Denies dyspnea on exertion, Denies orthopnea, Denies paroxysmal nocturnal dyspnea and Denies slow heart rate Resp Denies cough, Denies dyspnea and Denies dyspnea on exertion GI Denies abdominal pain, Denies change in bowel habits, Denies excessive flatus, Denies nausea and Denies vomiting Denies urinary hesitancy, Denies urinary incontinence and Denies urinary urgency Musc Denies abnormal gait, Denies atrophy, Denies deformity and Denies limited range of motion Skin/Breast Denies bleeding lesions, Denies changing lesions and Denies rash Neuro Denies abnormal gait, Denies behavioral changes and Denies lack of coordination Psych Denies behavioral changes Physical exam (Primary Care) Vital Signs: Last Vital Signs BP 138/82 02/19/23 13:51 BMI result Body Mass Index 27.4 Tobacco/Smoking Status: Tobacco use Status Tobacco use date assessed 07/07/22 02/19/23 13:56 Patient Tobacco Use Status Former Tobacco user 02/19/23 13:56 Tobacco use type Cigarette 02/19/23 13:56 e-Cigarette/Vaping Use Never Used 02/19/23 13:56 Thrive Assessment: Date of Thrive Assessment Date Thrive assessed 07/07/22 02/19/23 13:56 Neck Neck: Yes normal visual inspection and Yes supple Resp Effort & Inspection: normal respiratory effort Auscultation: clear to auscultation bilaterally Cardio Jugular venous distension: no JVD Rate: regular rate Rhythm: regular rhythm Heart sounds: S1 normal heart sound present and S2 normal heart sound present Extrem General: Yes full ROM Assessment and Plan Assessment & Plan (1) URI (upper respiratory infection): Code(s): J06.9 - Acute upper respiratory infection, unspecified Plan: COVID, flu and RSV test ordered. (2) Testicular swelling: Code(s): N50.89 - Other specified disorders of the male genital organs Plan: Ultrasound ordered. (3) Mixed hyperlipidemia: Code(s): E78.2 - Mixed hyperlipidemia Plan: Continue statins and fibrates. (4) Essential hypertension: Code(s): I10 - Essential (primary) hypertension Plan: Continue lisinopril and chlorthalidone. Blood pressure goal is equal or less than 130/80. Orders: Orders US scrotum Today N50.89 - Other specified disorders of the male genital organs SARS-CoV2/FLU/RSV Today R09.89 - Other specified symptoms and signs involving the circulatory and respiratory systems Medications: Refilled clotrimazole 1% 1 appl topical BID 3 weeks 30 grams 0RF Coding Level of Care Code Est Pt Level 4 (42526) Diagnoses URI (upper respiratory infection) J06.9 Testicular swelling N50.89 Mixed hyperlipidemia E78.2 Essential hypertension I10 Time Spent (min) 24
== END 2023-02-19 14:09 | disposition home or self-care (01) ==
PROVIDERS: PCP Internal Medicine; Visit Provider Internal Medicine
DX: J06.9 Acute upper respiratory infection, unspecified (principal); N50.89 Other specified disorders of the male genital organs; E78.2 Mixed hyperlipidemia; I10 Essential (primary) hypertension
CPT/HCPCS: 99214

== ENCOUNTER 2023-02-19 14:20 | Outpatient (REF) | payer MEDICARE, SELFPAY ==
[2023-02-19 15:40] LABS: Influenza A PCR NEGATIVE (Negative); Influenza B PCR NEGATIVE (Negative); Resp Syncy Virus RNA Qual PCR POSITIVE (Negative); SARS COV2 PCR INHOUSE NEGATIVE (Negative)
== END 2023-02-19 14:21 | disposition home or self-care (01) ==
LOC: HO.LAB 14:20
PROVIDERS: PCP Internal Medicine; Visit Provider Internal Medicine
DX: R09.89 Other specified symptoms and signs involving the circulatory and respiratory systems (principal); Z20.822 Contact with and (suspected) exposure to COVID-19
CPT/HCPCS: 0241U

== ENCOUNTER 2023-03-03 15:25 | Outpatient (REF) | payer MEDICARE, SELFPAY ==
--- NOTE | ~2023-03-03 | US_ITS ---
EXAMINATION: US SCROTUM CLINICAL INFORMATION: Other specified disorders of the male genital organs. COMPARISON: Ultrasound scrotum 07/02/2017 and 10/23/2015. TECHNIQUE: A sonogram of the scrotum was performed assessing buck-scale appearance and color Doppler flow. Spectral Doppler analysis of the arterial and venous flow were performed in the testes bilaterally. FINDINGS: RIGHT: Right testicle measures 5.0 x 2.0 x 3.7 cm, volume 19.5 mL. No focal testicular parenchymal lesions are visualized. Spectral Doppler analysis of the arterial and venous flow is normal in the right testis. Right epididymal head is normal in size. Multiple adjacent cysts or septated cyst in the head of the epididymis measures 1.6 x 1.3 x 1.8 cm. 2.7 x 2.2 x 2.3 cm right epididymal head cyst is also seen; previously measured 0.9 x 1.6 x 1.1 cm. No right hydrocele or varicocele is seen. Right epididymal Doppler flow is normal. LEFT: Left testicle measures 5.3 x 2.6 x 2.9 cm, volume 20.9 mL. No focal testicular parenchymal lesions are visualized. Spectral Doppler analysis of the arterial and venous flow is normal in the left testis. Left epididymal head is normal in size. 1.0 x 0.6 x 0.6 cm complex left epididymal head cyst is seen. Previously measured 0.8 x 0.6 x 0.7 cm on scrotal ultrasound of 07/02/2017. Small to moderate left hydrocele is noted. Left epididymal Doppler flow is normal. US/US scrotum IMPRESSION: 1. Normal testicles. 2. Bilateral epididymal head cysts. 3. Small to moderate left hydrocele.
== END 2023-03-03 15:26 | disposition home or self-care (01) ==
LOC: HO.US 15:25
PROVIDERS: PCP Internal Medicine; Visit Provider Internal Medicine
DX: N50.89 Other specified disorders of the male genital organs (principal)
CPT/HCPCS: 76870

== ENCOUNTER 2023-04-14 08:31 | Outpatient (AMB) | payer MEDICARE, SELFPAY ==
--- NOTE | 2023-04-14 08:33 | A.OFFVIS_ITS ---
Intake Intake Visit Reasons: Hydrocele, unspecified Intake Note: New Patient presents today for initial visit for hydrocele Urology Medications: none Blood Thinner: Aspirin Allergies to antibiotics: none Patient was unable to provide an urine sample today. Student Accounts Manager Required: No Accompanied by: Self / Same As Patient Allergies No Known Allergies [No Known Allergies*] Allergy (Verified 04/14/23 20:23) Medication List - Last Reconciled 04/14/23 by TELLO Watson aspirin (Adult Aspirin Regimen) 81 mg PO DAILY 90 days atorvastatin 40 mg PO DAILY chlorthalidone 25 mg PO DAILY 90 days clotrimazole 1% 1 appl topical BID 3 weeks fenofibrate 54 mg PO DAILY 90 days lisinopril 40 mg PO DAILY 90 days HPI HPI Comments History of Present Illness Details Akil is a pleasant 73-year-old male patient of Dr. Yeager. He has a past medical history of left inguinal hernia, alcohol abuse, myocardial infarction, coronary artery disease, asthma, former smoker, dyslipidemia, hypertension, and arthritis. He presents to the office today as a new patient for left sided hydrocele. In discussion with the patient today he reports a previous history of like a right-sided hydrocele. He reports having followed up with his PCP at which time a scrotal ultrasound was ordered and performed. These results were reviewed with the patient today. Normal testicles, bilateral epididymal head cysts, and small to moderate left-sided hydrocele. In assessment of the patient today the penis is circumcised and bilateral epididymal head cysts are noted as well as small left hydrocele. No pain elicited on exam of the testicles, scrotum, and or penis. No lesions, drainage, and or redness noted throughout these areas. Previous scar noted to right side of the scrotum. When asked he does report urinary frequency however does not find this bothersome. Discussed at length potential causes of hydroceles. Discussed further treatment options with in office drainage and or surgical intervention. Discussed risks and benefits of surveillance monitoring verses further intervention. He otherwise denies, incontinence, nocturia, hematuria, dysuria, foul smelling urine, changes to urinary stream, flank pain, fever, and or chills. He is happy with his current voiding parameters. In office urinalysis results reviewed with the patient today. He otherwise offers no other issues or concerns at this time. [facility] Medical History Left inguinal hernia (08/25/22) Alcohol abuse Myocardial infarction CAD (coronary artery disease) Asthma Chest pain Encounter for physical examination Former smoker Dyslipidemia Essential hypertension Arthritis Surgical History History of hydrocelectomy History of hemorrhoidectomy History of appendectomy Family History Father No problems noted. Mother Past heart attack Hypertension Brother HIV (human immunodeficiency virus infection) Brother No problems noted. Sister No problems noted. Sister No problems noted. Social History Housing: Apartment Are you a primary health and social care teacher to a significant other at home: No Do you presently have visiting nurse or other home services: No Alcohol intake: former Patient Tobacco Use Status: Former Tobacco user Quit Date: Tobacco use type: Cigarette e-Cigarette/Vaping Use: Never Used Second Hand Smoke Exposure: No Substance Use Type: Marijuana Advance Directives Date on File: 10/29/18 service: No Current occupational status: unemployed and disabled Cognitive needs: No Hearing needs: No Vision needs: Yes Review of Systems Const Reports no additional complaints ENT Reports no additional complaints Card Reports as per HPI Resp Reports as per HPI GI Reports as per HPI Reports as per HPI Musc Reports as per HPI Neuro Reports no additional complaints Psych Reports as per HPI Endo Reports no additional complaints Tien/Lymph Reports no additional complaints Aller/Immun Reports no additional complaints Physical Exam Const General: cooperative, comfortable, no acute distress, well developed, alert and awake Orientation/consciousness: patient oriented x3 Limitations: no limitations HEENT Head: Yes normal to inspection, Yes normocephalic and Yes atraumatic Ears: hearing grossly normal bilaterally Eyes General: appearance normal, both eyes and all related structures Neck Neck: Yes normal visual inspection and Yes trachea midline Chest Chest palpation & inspection: normal inspection of the chest Resp Effort & Inspection: normal respiratory effort and able to speak in complete sentences Cardio Rate: regular rate GI Inspection: Yes normal to inspection General: Yes no CVA tenderness Penis: normal penis and circumcised Meatus: meatus normal Scrotum: Hydrocele present (small) on the left Testes: other (Bilateral epididymal head cysts) Back/Spine/Pelvis Back: no CVA tenderness Skin General skin exam: no rashes or lesions noted Neuro General: patient oriented x3 Extrem General: Yes normal to inspection Psych Appearance: grossly normal and well kempt Mental Status: mental status grossly normal Speech and movement: Normal speech and movement present and Clear speech present Affect: normal affect Attitude: cooperative Thought process: Normal thought process present Thought content: Normal thought content present Insight: Fair insight present (Psych) Judgement: Fair judgement present (Psych) Results Reviewed Results Reviewed: Date of Service: 03/03/23 EXAMINATION: US SCROTUM FINDINGS: RIGHT: Right testicle measures 5.0 x 2.0 x 3.7 cm, volume 19.5 mL. No focal testicular parenchymal lesions are visualized. Spectral Doppler analysis of the arterial and venous flow is normal in the right testis. Right epididymal head is normal in size. Multiple adjacent cysts or septated cyst in the head of the epididymis measures 1.6 x 1.3 x 1.8 cm. 2.7 x 2.2 x 2.3 cm right epididymal head cyst is also seen; previously measured 0.9 x 1.6 x 1.1 cm. No right hydrocele or varicocele is seen. Right epididymal Doppler flow is normal. LEFT: Left testicle measures 5.3 x 2.6 x 2.9 cm, volume 20.9 mL. No focal testicular parenchymal lesions are visualized. Spectral Doppler analysis of the arterial and venous flow is normal in the left testis. Left epididymal head is normal in size. 1.0 x 0.6 x 0.6 cm complex left epididymal head cyst is seen. Previously measured 0.8 x 0.6 x 0.7 cm on scrotal ultrasound of 07/02/2017. Small to moderate left hydrocele is noted. Left epididymal Doppler flow is normal. IMPRESSION: 1. Normal testicles. 2. Bilateral epididymal head cysts. 3. Small to moderate left hydrocele. Assessment & Plan Assessment & Plan (1) Hydrocele: Code(s): N43.3 - Hydrocele, unspecified (2) Epididymal cyst: Code(s): N50.3 - Cyst of epididymis (3) History of urinary frequency: Code(s): Z87.898 - Personal history of other specified conditions Plan In office urinalysis results reviewed with the patient today; as noted above. Recent scrotal ultrasound results reviewed with the patient today; as noted above. Discussed at length potential causes of epididymal head cysts as well as hydroc jalil. Discussed at length further treatment options of small to moderate left-sided hydrocele with in office drainage, surveillance monitoring, and or surgical intervention. Discussed risks and benefits of these interventions at length. He does report urinary frequency however does not find this bothersome at this time. Will continue with surveillance monitoring at this time Scrotal ultrasound in 6 months. Will obtain PSA for further assessment evaluation. He is happy with his current voiding parameters. Follow-up in 6 months with labs and imaging to be completed prior; or sooner wi th any issues, concerns, and or questions. Orders: Orders AMB Urinalysis Automated Today R33.9 - Retention of urine, unspecified US scrotum 6 Months N43.3 - Hydrocele, unspecified Prostate Specific Antigen Today N40.0 - Benign prostatic hyperplasia without lower urinary tract symptoms Patient Instructions: The patient had an opportunity to ask questions regarding the treatment plan. All questions were answered. Physical exam, labs, and imaging were discussed and reviewed in detail. As well as risks, benefits, and discussion of treatment choices. No major barriers to understanding were identified. The patient expressed understanding and agreement with the above treatment plan. The patient was made aware they should contact our office by phone for worsening of their current condition, the appearance of new symptoms, or with any questions or concerns. Compliance is encouraged with any medications and follow up testing that is ordered. It is a privilege to be allowed the opportunity to participate in? your urological care.? Again, if you have any questions or concerns If you have any questions or concerns please do not hesitate to contact me. The office is [phone]. This note is constructed using voice recognition software. While every effort has been made to ensure accuracy water and fire technician errors may have been included. Yours sincerely, TELLO Watson Coding Level of Care Code New Pt Level 3 (26702) Diagnoses Hydrocele N43.3 Epididymal cyst N50.3 History of urinary frequency Z87.898
== END 2023-04-14 09:25 | disposition home or self-care (01) ==
PROVIDERS: PCP Internal Medicine; Visit Provider Nurse Practitioner Family
DX: R33.9 Retention of urine, unspecified (principal)
CPT/HCPCS: 99203; 99213

== ENCOUNTER → 2023-04-14 08:31 | Outpatient (BNVA) | payer MEDICARE, SELFPAY | PROVIDERS: PCP Internal Medicine; Visit Provider Nurse Practitioner Family | DX: N43.3 Hydrocele, unspecified (principal); N50.3 Cyst of epididymis; Z87.898 Personal history of other specified conditions | CPT/HCPCS: 81003; 99202 ==

== ENCOUNTER 2023-06-30 12:25 | Outpatient (AMB) | payer MEDICARE, SELFPAY ==
[2023-06-30 12:51] VITALS: BP 140/82; PULSE 86; BMI 26.9
--- NOTE | 2023-06-30 12:51 | MHC.OFFVIS ---
Vital Signs 06/30/23 12:51 Height 5 ft 10 in Weight 187 lb 13.341 oz BMI 26.9 BP 140/82 H Blood Pressure Location Lt brachial Position Sitting Pulse 86 Pulse Source Monitor Intake Visit Reasons: 1 yr f/up per hs Mosaic Tiler Required: No Allergies No Known Allergies [No Known Allergies*] Allergy (Verified 06/30/23 12:55) Medication List - Last Reconciled 06/30/23 by DELMY Wagner aspirin (Adult Aspirin Regimen) 81 mg PO DAILY 90 days atorvastatin 40 mg PO DAILY chlorthalidone 25 mg PO DAILY 90 days clotrimazole 1% 1 appl topical BID 3 weeks fenofibrate 54 mg PO DAILY 90 days lisinopril 40 mg PO DAILY 90 days HPI HPI 1 yr f/up per hs: Details: Monica Sharma is a 73-year-old male with past medical history of hypertension, hyperlipidemia, inferior infarct, unknown when this occurred who presents for follow-up. Today he reports he has been doing generally well since his last visit 06/26/2022. Primary issue is of joint arthritis. He has pains in his back, hips and knees. In spite of this he does remain physically active and walks frequently. Does not have any chest discomfort brought on by walking. No shortness of breath, lightheadedness, presyncope, syncope, PND, orthopnea or edema. He is noticing episodes of heart palpitations where it feels like his heart is beating faster for a few seconds and goes away. He says this can happen 0-6 times daily. He has not aware of any triggers. He has not had any sustained rapid or irregular rates. [facility] Medical History Left inguinal hernia (08/25/22) Alcohol abuse Myocardial infarction CAD (coronary artery disease) Asthma Chest pain Encounter for physical examination Former smoker Dyslipidemia Essential hypertension Arthritis Surgical History History of hydrocelectomy History of hemorrhoidectomy History of appendectomy Family History Father No problems noted. Mother Past heart attack Hypertension Brother HIV (human immunodeficiency virus infection) Brother No problems noted. Sister No problems noted. Sister No problems noted. Social History Housing: Apartment Are you a primary caretaker resort to a significant other at home: No Do you presently have visiting nurse or other home services: No Alcohol intake: former Patient Tobacco Use Status: Former Tobacco user Quit Date: Tobacco use type: Cigarette e-Cigarette/Vaping Use: Never Used Second Hand Smoke Exposure: No Substance Use Type: Marijuana Advance Directives Date on File: 10/29/18 service: No Current occupational status: unemployed and disabled Cognitive needs: No Hearing needs: No Vision needs: Yes Review of Systems Const All systems reviewed & are unremarkable except as noted in HPI and below ENT Denies dizziness Card Details: palpitations Denies chest pain, Denies chest pain at rest, Denies chest pain with activity, Reports rapid heart rate, Denies pedal edema, Denies edema, Denies leg edema, Denies lightheadedness, Denies palpitations, Denies dyspnea, Denies dyspnea on exertion and Denies orthopnea Resp Denies cough, Denies dyspnea and Denies dyspnea on exertion GI Denies hematochezia and Denies change in stool character Musc Details: body pains from arthritis Reports abnormal gait, Reports limited range of motion, Denies muscle cramps, Denies muscle weakness, Denies numbness, Denies radiating pain into limb, Denies stiffness and Denies tingling Neuro Reports abnormal gait, Denies dizziness, Denies numbness and Denies tingling Endo Denies palpitations Physical Exam Vital Signs: Last Vital Signs Pulse 86 06/30/23 12:51 BP 140/82 H 06/30/23 12:51 BMI result Body Mass Index 26.9 Const General: cooperative, healthy appearing, comfortable and no acute distress Orientation/consciousness: patient oriented x3 Neck Neck: Yes normal visual inspection and Yes no JVD Resp Effort & Inspection: normal respiratory effort Auscultation: clear to auscultation bilaterally, no crackles, no rales, no rhonchi and no wheezes Cardio Jugular venous distension: no JVD Rate: regular rate Rhythm: regular rhythm Heart sounds: S1 normal heart sound present, S2 normal heart sound present, no murmurs and no rubs Neuro General: patient oriented x3 Extrem General: Yes normal to inspection and No no pedal edema Psych Appearance: grossly normal Mental Status: mental status grossly normal Speech and movement: Normal speech and movement present Office Procedures EKG Details: Today, read by me, normal sinus rhythm, possible left atrial enlargement, left axis, LVH, inferior infarct, rate 86., QTC 445 milliseconds [id number], Complete Assessment & Plan Assessment & Plan (1) Old inferior wall myocardial infarction: Code(s): I25.2 - Old myocardial infarction Category: Medical Plan: History of old inferior infarct. Patient unaware of when he had an actual infarct. Cardiac testing confirms this has occurred. His EKG does show evidence of inferior infarct. Echocardiogram done 11/19/2021 shows EF 56%, inferior regional wall motion abnormality, moderate LVH, severe septal asymmetric hypertrophy. A nuclear stress test done 11/22/2021 shows basal inferior infarct with no reversible ischemia, EF 53%. Today he reports feeling well with no anginal symptoms. He does have issues with arthritis but remains physically active. He is on aspirin indefinitely. He is on atorvastatin 40 mg daily with ideal LDL goal less than 70. He is not on beta-darryl. He is on chlorthalidone and lisinopril for blood pressure control. Labs done 07/08/2022 showed LDL 75, AST ALT normal. He is due for repeat labs. He has an upcoming visit with his PCP Dr. Yeager. Continue current med management. If LDL on recheck his greater than 70 then recommend increase in atorvastatin dose. If blood pressure is mildly elevated at last visit then recommend addition low-dose beta-darryl. Cardiology follow-up 1 year, sooner if needed (2) CAD (coronary artery disease): Code(s): I25.10 - Atherosclerotic heart disease of [place] coronary artery without angina pectoris Category: Medical Plan: As above (3) Palpitations: Code(s): R00.2 - Palpitations Category: Medical Plan: Patient does report heart palpitations, lasting seconds and resolving. Feels like his heart rate speeds up the normalizes. He says he has had this in the past but more recently it is happening daily. EKG done today shows no arrhythmia, normal MT, QRS and QTC intervals. Last echo showed normal EF. Will order Holter monitor for further evaluation. Plan to call him with results. Will arrange for sooner office visit if needed pending findings. (4) Essential hypertension: Code(s): I10 - Essential (primary) hypertension Category: Medical Plan: As above (5) Dyslipidemia: Code(s): E78.5 - Hyperlipidemia, unspecified Category: Medical Plan: As above Plan Time spent on chart review, documentation, interview and assessment Orders: Orders ECG 5 day holter monitor Today I25.10 - Atherosclerotic heart disease of [place] coronary artery without angina pectoris, R00.2 - Palpitations Coding Level of Care Code Est Pt Level 4 (01998) Diagnoses Old inferior wall myocardial infarction I25.2 CAD (coronary artery disease) I25.10 Palpitations R00.2 Essential hypertension I10 Dyslipidemia E78.5 CPT Codes EKG - CPT: [id number], Complete ([id number]) Time Spent (min) 28
== END 2023-06-30 13:24 | disposition home or self-care (01) ==
PROVIDERS: PCP Internal Medicine; Visit Provider Nurse Practitioner Family
DX: I25.2 Old myocardial infarction (principal); I25.10 Atherosclerotic heart disease of native coronary artery without angina pectoris; R00.2 Palpitations; I10 Essential (primary) hypertension; E78.5 Hyperlipidemia, unspecified
CPT/HCPCS: 93010; 99214

== ENCOUNTER → 2023-06-30 12:25 | Outpatient (BNVA) | payer MEDICARE, SELFPAY | PROVIDERS: PCP Internal Medicine; Visit Provider Nurse Practitioner Family | DX: I25.10 Atherosclerotic heart disease of native coronary artery without angina pectoris (principal); R00.2 Palpitations; I10 Essential (primary) hypertension; E78.5 Hyperlipidemia, unspecified; I25.2 Old myocardial infarction; Z79.82 Long term (current) use of aspirin; Z79.899 Other long term (current) drug therapy | CPT/HCPCS: 93005; 99212 ==

== ENCOUNTER → 2023-07-09 10:29 | Outpatient (REF) | payer MEDICARE, SELFPAY ==
--- NOTE | 2023-07-09 10:32 | HM_ITS ---
Conclusion: 1. Patient was monitored for total period of 4 days and 23 hours 2. Baseline was normal sinus rhythm with average heart of 71 beats per minute 3. Frequent PVCs noted with total burden of 11.1% with frequent nonsustained VT episodes noted total of 46 events with the fastest at 142 beats per minute and longest 7 beats 4. Occasional PACs noted but frequent SVT events noted with total of 15 events, fastest and longest is 33 minutes at 190 beats per minute 5. No significant pauses noted next 6. Patient reported multiple symptoms including chest pain and heart racing, some of them correlated with PVCs as well as SVT MTDD
== END ==
LOC: HO.CARD 10:29
PROVIDERS: PCP Internal Medicine; Visit Provider Nurse Practitioner Family
DX: R00.2 Palpitations (principal); I25.10 Atherosclerotic heart disease of native coronary artery without angina pectoris
CPT/HCPCS: 93242

== ENCOUNTER → 2023-07-09 10:32 | Outpatient (BNV) | payer MEDICARE, SELFPAY | PROVIDERS: PCP Internal Medicine; Visit Provider Internal Medicine Cardiovascular Disease | DX: I49.3 Ventricular premature depolarization (principal) | CPT/HCPCS: 93244 ==

== ENCOUNTER 2023-07-15 08:01 | Outpatient (AMB) | payer MEDICARE, SELFPAY ==
--- NOTE | 2023-07-15 08:04 | MHC.PC.OV ---
Vital Signs 07/15/23 08:06 Height 5 ft 10 in Weight 190 lb BMI 27.3 BP 122/80 Blood Pressure Location Lt brachial Position Sitting Intake Visit Reasons: Annual exam Intake Note: Patient here for an annual physical exam Associate Medical Director Required: No Accompanied by: Self / Same As Patient Allergies No Known Allergies [No Known Allergies*] Allergy (Verified 07/15/23 08:17) Medication List - Last Reconciled 07/15/23 by Areli Howell MD aspirin (Adult Aspirin Regimen) 81 mg PO DAILY 90 days atorvastatin 40 mg PO DAILY chlorthalidone 25 mg PO DAILY 90 days clotrimazole 1% 1 appl topical BID 3 weeks fenofibrate 54 mg PO DAILY 90 days lisinopril 40 mg PO DAILY 90 days Tobacco use date assessed: 07/15/23 Fall risk assessment: No Falls in past year Last assessed Fall Risk: 07/15/23 Dental Screening Dental Screen Date: 07/15/23 Did you have a dental visit in the last 12 months?: Yes Did you have a dental problem in the last 6 months where you did not have access to dental care?: No Was dental information given to patient?: Patient has dentist HPI HPI Comments History of Present Illness Details This is a 73-year-old male that comes for his physical exam. Last colonoscopy was 2010 at [place] and was normal. Declines colonoscopy will willing to do Cologuard. Has occasional chest pain at rest and shortness of breath. No change in bowel or bladder habits. Complain of back pain and is asking for medication. Said that Tylenol does not work for him. I will give NSAIDs to be used as needed. Patient is aware that NSAIDs can cause kidney failure. [facility] Medical History (Updated 07/15/23 @ 08:30 by Areli Howell MD) Left inguinal hernia (08/25/22) Alcohol abuse Myocardial infarction CAD (coronary artery disease) Asthma Chest pain Encounter for physical examination Former smoker Dyslipidemia Essential hypertension Arthritis Surgical History History of hydrocelectomy History of hemorrhoidectomy History of appendectomy Family History Father No problems noted. Mother Past heart attack Hypertension Brother HIV (human immunodeficiency virus infection) Brother No problems noted. Sister No problems noted. Sister No problems noted. Social History Housing: Apartment Are you a primary critical care physician assistant to a significant other at home: No Do you presently have visiting nurse or other home services: No Alcohol intake: former Patient Tobacco Use Status: Former Tobacco user Quit Date: Tobacco use type: Cigarette e-Cigarette/Vaping Use: Never Used Second Hand Smoke Exposure: No Substance Use Type: Marijuana Advance Directives Date on File: 10/29/18 service: No Current occupational status: unemployed and disabled Cognitive needs: No Hearing needs: No Vision needs: Yes Questionnaire PHQ-9 Over the last 2 weeks, how often have you been bothered by any of the following problems? 1. Little interest or pleasure in doing things: not at all 2. Feeling down, depressed, or hopeless: not at all 3. Trouble falling or staying asleep, or sleeping too much: not at all 4. Feeling tired or having little energy: not at all 5. Poor appetite or overeating: not at all 6. Feeling bad about yourself - or that you are a failure or have let yourself or your family down: not at all 7. Trouble concentrating on things, such as reading the newspaper or watching television: not at all 8. Moving or speaking so slowly that other people could have noticed. Or the opposite - being so fidgety or restless that you have been moving around a lot more than usual: not at all 9. Thoughts that you would be better off or of hurting yourself in some way: not at all Total score: 0 Depression Screening Interpretation: Negative Depression Screening Done: Yes 43119 - PHQ-9 Billing: Yes Source: Developed by Drs. Lele Castellano, Emily Sue, Ruben Stern and colleagues, with an educational chris from [employer]. Thrive Questionnaire Date Thrive assessed: 07/15/23 I am a: Patient What is your living situation today?: I have a steady place to live Within the past 12 months, did the food you bought not last and you didn't have the money to get more?: Never true Within the past 12 months, did you worry whether your food would run out before you got money to buy more?: Never true Do you have trouble paying for medicines?: No Do you have trouble getting transportation to medical appointments?: No Do you have trouble paying your heating and electricity bill?: No Do you have trouble taking care of your child, family member or friend?: No Do you have trouble with day-to-day activities such as bathing, preparing meals, shopping, managing finances, etc.?: No Are you currently unemployed and looking for a job?: No Are you interested in more education?: No Please select the resources that you would like help with: None Currently or been in a relationship where the following occur: no concerns reported THRIVE Score: 0 AUDIT C Alcohol Use Questionnaire (AUDIT-C) 1. How often do you have a drink containing alcohol?: Monthly or less 2. How many drinks containing alcohol do you have on a typical day when you are drinking?: 1 or 2 3. How often do you have six or more drinks on one occasion?: Never Total Score: 1 TRACIE-7 AMB Questionnaire TRACIE-7 Date TRACIE - 7 assessed: 07/15/23 Feeling nervous, anxious, or on edge: 1 = Several days Not being able to stop or control worryin = Not at all Worrying too much about different things: 0 = Not at all Trouble relaxin = Not at all Being so restless that it is hard to sit still: 0 = Not at all Becoming easily annoyed or irritable: 0 = Not at all Feeling afraid as if something awful might happen: 0 = Not at all Total TRACIE-7 score (0-4 normal; 5-9 mild; 10-14 moderate; 15-21 severe): 1 Source: Developed by Drs. Lele Castellano, Emily Sue, Ruben Stern and colleagues, with an educational chris from [employer]. TRACIE-7 Assessment Billing TRACIE-7 Assessment Tool: TRACIE-7 Assessment 23051 Review of Systems Const All systems reviewed & are unremarkable except as noted in HPI and below Eyes Reports no additional complaints, Denies change in vision and Denies other visual disturbances Card Reports chest pain at rest, Denies chest pain with activity, Denies edema, Denies irregular heart rhythm, Denies claudication, Denies dyspnea, Reports dyspnea on exertion, Denies orthopnea, Denies paroxysmal nocturnal dyspnea and Denies slow heart rate Resp Denies cough, Denies dyspnea and Reports dyspnea on exertion Musc Reports back pain Physical exam (Primary Care) Vital Signs: Last Vital Signs BP 122/80 07/15/23 08:06 BMI result Body Mass Index 27.3 Tobacco/Smoking Status: Tobacco use Status Tobacco use date assessed 07/15/23 07/15/23 08:12 Patient Tobacco Use Status Former Tobacco user 07/15/23 08:12 Tobacco use type Cigarette 07/15/23 08:12 e-Cigarette/Vaping Use Never Used 07/15/23 08:12 PHQ-9: PHQ-9 Score PHQ-9: Total score 0 07/15/23 09:03 Depression Screening Interpretation: Negative Thrive Assessment: Date of Thrive Assessment Date Thrive assessed 07/15/23 07/15/23 08:12 Currently or been in a relationship where the following occur: no concerns reported Const General: cooperative and in distress (in pain) mild Orientation/consciousness: patient oriented x3 HENMT Head: Yes normal to inspection, Yes normocephalic and Yes atraumatic Ears: external ears normal Eyes General: appearance normal, both eyes and all related structures Eyelids: Yes eyelids normal Conjunctivae: conjunctivae normal Neck Neck: Yes normal visual inspection and Yes supple Resp Effort & Inspection: normal respiratory effort Auscultation: clear to auscultation bilaterally Cardio Jugular venous distension: no JVD Rate: regular rate Rhythm: regular rhythm Heart sounds: S1 normal heart sound present and S2 normal heart sound present GI Inspection: Yes normal to inspection Palpation (GI): Soft to palpation and nontender Auscultation: normal bowel sounds Skin General skin exam: no rashes or lesions noted Neuro General: patient oriented x3 and no focal motor deficits Extrem General: Yes full ROM Psych Appearance: grossly normal Assessment and Plan Assessment & Plan (1) Encounter for physical examination: Code(s): Z00.00 - Encounter for general adult medical examination without abnormal findings Plan: Repeat in a year. Orders: Orders Lipid Panel Today E78.5 - Hyperlipidemia, unspecified XR chest 2V Today R06.09 - Other forms of dyspnea ECG 12 lead EKG Today R07.9 - Chest pain, unspecified Comprehensive [place]. Panel Fast Today Z00.00 - Encounter for general adult medical examination without abnormal findings Referrals Cologuard Test Z12.11 - Encounter for screening for malignant neoplasm of colon, Z12.12 - Encounter for screening for malignant neoplasm of rectum Medications: New nabumetone 750 mg PO BID 30 days PRN 45 tabs 0RF pain Coding Level of Care Code Est Pt Prev Care >65y(92653) Diagnoses Encounter for physical examination Z00.00 Additional Codes TRACIE-7 Assessment Billing - TRACIE-7 Assessment Tool: TRACIE-7 Assessment 62051 ([id number]) Time Spent (min) 30
[2023-07-15 08:06] VITALS: BP 122/80; BMI 27.3
== END 2023-07-15 08:32 | disposition home or self-care (01) ==
PROVIDERS: PCP Internal Medicine; Visit Provider Internal Medicine
DX: Z00.00 Encounter for general adult medical examination without abnormal findings (principal)
CPT/HCPCS: 99397

== ENCOUNTER → 2023-07-31 09:02 | Outpatient (BNVA) | payer MEDICARE, SELFPAY | PROVIDERS: PCP Internal Medicine; Visit Provider Nurse Practitioner Family ==

== ENCOUNTER → 2023-08-11 12:26 | Outpatient (REF) | payer MEDICARE, SELFPAY ==
--- NOTE | 2023-08-11 12:30 | CA_ITS ---
Transthoracic Echocardiogram Patient (Last, First, Middle): Akil Trevino, Gender: Male Date of : 1950 Age: 73 Procedure Date: 08/11/2023 Procedure Type: Transthoracic Echocardiogram Location: OP Height: 177.8 cm Weight: 86.18 kg BSA: 2.04 m2 Heart Rate: 54 bpm BP: 120 / 78 mmHg Afternoon Babysitter: SB Referring MD: Екатерина Morales PROPELLER INSPECTORLouiseC Symptoms: R00.2 - Palpitations Study Quality: Adequate ECG Rhythm: Bradycardia Conclusions: - The left ventricular systolic function is low normal. The visually estimated ejection fraction is between 50-55%. - The basal inferior segment is akinetic. - The mid inferior, mid inferoseptal, and basal inferolateral segments are hypokinetic. - No obvious valvular pathology seen on this study. Findings Left Ventricle Normal left ventricular cavity size. The left ventricular systolic function is low normal. The visually estimated ejection fraction is between 50-55%. There is evidence of regional wall motion abnormalities. Diastolic function is normal for age. There is mild septal asymmetric hypertrophy. Wall Motion Rest Echo Findings The mid inferior, mid inferoseptal, and basal inferolateral segments are hypokinetic. The basal inferior segment is akinetic. Right Ventricle Normal right ventricular cavity size and systolic function. Atria Both atria are normal in size. Aortic Valve There is a normal trileaflet aortic valve. There is mild calcification of the aortic valve. There is no aortic valve stenosis. There is no aortic valve regurgitation. Mitral Valve The mitral valve appears normal. There is no mitral valve regurgitation. There is no mitral valve stenosis. Pulmonic Valve The pulmonic valve is likely normal. Tricuspid Valve Normal tricuspid valve structure. There is trace tricuspid valve regurgitation. Tricuspid regurgitation envelope is inadequate for calculation of right ventricular systolic pressure. Great Vessels The asc aorta is normal in size. Venous The inferior vena cava is normal in size and collapses greater than 50% with inspiration. Pericardium/Pleural There is no evidence of pericardial effusion. Prior Study Comparison No significant change compared to prior study dated: 11/19/2021. Recommendations, Care & Conclusions No obvious valvular pathology seen on this study. Measurements 2D Linear Measurements IVSd: 1.24 0.6-0.9/0.6-1.0 cm LVIDd: 5.12 3.9-5.3/4.2-5.9 cm LVIDd Index: 2.51 2.4-3.2/2.2-3.1 cm/m2 LVIDs: 3.62 2.0-3.6 cm LVPWd: 0.72 0.7-1.1 cm LA Diam: 4.40 2.7-3.8/3.0-4.0 cm LAIDs Index: 2.16 1.5-2.3 cm/m2 LV Mass: 228.72 67-162/88-224 g LV Mass Index: 112.12 43-95/49-115 g/m2 LVOT Diam: 2.50 3.0+(-)1.3 cm 2D Systolic Function EF 4C: 49.20 >55% EF 2C: 52.20 >55% EF BiP: 50.70 >55% Mitral Valve MV Pk E: 0.41 MV PK A: 0.71 MV Decel Time: 336.00 E/A: 0.60 E'Lateral: 7.29 E'Medial: 5.87 E/E' Med: 6.90 E/E' Lat: 5.60 PHT: 99.00 MVA PHT: 2.22 Decel Crane: 1.21 Aortic Valve AoV Pk Narciso: 1.23 AoV Pk Grad: 6.00 [place]: 3.10 LVOT LVOT Pk Narciso: 0.78 LVOT Mn Narciso: 0.53 LVOT VTI: 0.14 LVOT Pk Grad: 2.00 LVOT Mn Grad: 1.00 LVOT Diam: 2.50 LVOT Area: 4.91 Diastolic Function MV Pk E: 0.41 MV Pk A: 0.71 E/A: 0.60 E'Medial: 5.87 E/E' Med: 6.90 E' Laterial: 7.29 E/E' Lat: 5.60 Right Ventricle TAPSE (mm): 24.30 TVS' Narciso: 14.60 Tricuspid Valve RA Press: 3.00 Great Vessels Aorta Sinus of Valsalva: 3.50 2.0-3.5 cm Ao Asc: 3.90 2.1-3.4 cm Pulmonary Valve PV Pk Narciso: 1.34 Peak PV Grad: 7.00 Updated in Other Vendor System with Status of Final Gian Weir MD electronically signed on 08/11/2023 3:51:51 PM with status of Final
--- NOTE | 2023-08-11 12:30 | ECG_ITS ---
Test Reason : CHEST PAIN Blood Pressure : / mmHG Vent. Rate : 059 BPM Atrial Rate : 059 BPM P-R Int : 220 ms QRS Dur : 120 ms QT Int : 412 ms P-R-T Axes : -13 -38 -27 degrees QTc Int : 407 ms Sinus bradycardia with 1st degree A-V block Left axis deviation Minimal voltage criteria for LVH, may be normal variant ( Nathanael product ) Inferior infarct (cited on or before 04-JUL-2021) Abnormal ECG When compared with ECG of 22-MAR-2022 06:11, LA interval has increased Criteria for Anterior infarct are no longer Present T wave inversion now evident in Inferior leads Referred By: Areli Howell Electronically Signed By:Demetris Anaya
== END ==
LOC: HO.CARD 12:26
PROVIDERS: PCP Internal Medicine; Visit Provider Nurse Practitioner Family
DX: R00.2 Palpitations (principal); R07.9 Chest pain, unspecified
CPT/HCPCS: 93005; 93306

== ENCOUNTER → 2023-08-11 12:30 | Outpatient (BNV) | payer MEDICARE, SELFPAY | PROVIDERS: PCP Internal Medicine; Visit Provider Internal Medicine Cardiovascular Disease | DX: I35.8 Other nonrheumatic aortic valve disorders (principal); I42.2 Other hypertrophic cardiomyopathy; R93.1 Abnormal findings on diagnostic imaging of heart and coronary circulation; I44.0 Atrioventricular block, first degree | CPT/HCPCS: 93010; 93306 ==

== ENCOUNTER 2023-09-21 09:28 | Outpatient (AMB) | payer MEDICARE, SELFPAY ==
[2023-09-21 09:39] VITALS: BP 114/80; PULSE 66; BMI 27.4
--- NOTE | 2023-09-21 09:39 | MHC.OFFVIS ---
Vital Signs 09/21/23 09:39 Height 5 ft 10 in Weight 190 lb 14.725 oz BMI 27.4 BP 114/80 Blood Pressure Location Lt brachial Position Sitting Pulse 66 Pulse Source Monitor Intake Visit Reasons: f/u after echo Vibrating Screen Operator Required: No Allergies No Known Allergies [No Known Allergies*] Allergy (Verified 09/21/23 09:42) Medication List - Last Reconciled 09/21/23 by Екатерина Morales NP-C aspirin (Adult Aspirin Regimen) 81 mg PO DAILY 90 days atorvastatin 40 mg PO DAILY chlorthalidone 25 mg PO DAILY 90 days clotrimazole 1% 1 appl topical BID 3 weeks fenofibrate 54 mg PO DAILY 90 days lisinopril 20 mg PO DAILY metoprolol succinate ER 50 mg PO DAILY nabumetone 750 mg PO BID PRN 30 days HPI HPI f/u after echo: Details: Akil is a 73-year-old male with past medical history of hypertension, hyperlipidemia, inferior infarct, who recently had a Holter monitor showing frequent PVCs, PACs and SVT. He was started on metoprolol and now presents for follow-up. Today he reports he has been having less heart palpitations since starting the metoprolol. No lightheadedness, presyncope, syncope, falls. Continues to report issues with joint arthritis. He has pains in his back, hips and knees. In spite of this he does remain physically active and walks frequently. Does not have any chest discomfort brought on by walking. He has some shortness of breath with exertion. No PND, orthopnea or edema. Takes his meds as directed. [facility] Medical History Left inguinal hernia (08/25/22) Alcohol abuse Myocardial infarction CAD (coronary artery disease) Asthma Chest pain Encounter for physical examination Former smoker Dyslipidemia Essential hypertension Arthritis Surgical History History of hydrocelectomy History of hemorrhoidectomy History of appendectomy Family History Father No problems noted. Mother Past heart attack Hypertension Brother HIV (human immunodeficiency virus infection) Brother No problems noted. Sister No problems noted. Sister No problems noted. Social History Housing: Apartment Are you a primary patient care representative to a significant other at home: No Do you presently have visiting nurse or other home services: No Alcohol intake: former Patient Tobacco Use Status: Former Tobacco user Tobacco use type: Cigarette e-Cigarette/Vaping Use: Never Used Second Hand Smoke Exposure: No Substance Use Type: Marijuana Advance Directives Date on File: 10/29/18 service: No Current occupational status: unemployed and disabled Cognitive needs: No Hearing needs: No Vision needs: Yes Review of Systems Const All systems reviewed & are unremarkable except as noted in HPI and below ENT Denies dizziness Card Details: heart palpitations improved Denies chest pain, Denies chest pain at rest, Denies chest pain with activity, Denies rapid heart rate, Denies pedal edema, Denies edema, Denies leg edema, Denies lightheadedness, Denies palpitations, Denies dyspnea, Denies dyspnea on exertion and Denies orthopnea Resp Denies cough, Denies dyspnea and Denies dyspnea on exertion GI Denies hematochezia and Denies change in stool character Musc Denies abnormal gait, Denies limited range of motion, Denies muscle cramps, Denies muscle weakness, Denies numbness, Denies radiating pain into limb, Denies stiffness and Denies tingling Neuro Denies abnormal gait, Denies dizziness, Denies numbness and Denies tingling Endo Denies palpitations Physical Exam Vital Signs: Last Vital Signs Pulse 66 09/21/23 09:39 BP 114/80 09/21/23 09:39 BMI result Body Mass Index 27.4 Const General: cooperative, healthy appearing, comfortable and no acute distress Orientation/consciousness: patient oriented x3 Neck Neck: Yes normal visual inspection and Yes no JVD Resp Effort & Inspection: normal respiratory effort Auscultation: clear to auscultation bilaterally, no crackles, no rales, no rhonchi and no wheezes Cardio Jugular venous distension: no JVD Rate: regular rate Rhythm: regular rhythm Heart sounds: S1 normal heart sound present, S2 normal heart sound present, no murmurs and no rubs Neuro General: patient oriented x3 Extrem General: Yes normal to inspection and No no pedal edema Psych Appearance: grossly normal Mental Status: mental status grossly normal Speech and movement: Normal speech and movement present Assessment & Plan Assessment & Plan (1) PVC's (premature ventricular contractions): Code(s): I49.3 - Ventricular premature depolarization Category: Medical Plan: On last visit he reported feeling heart palpitations and heart racing for a few minutes before resolving. A Holter monitor was done 07/09/2023 for 5 days showing normal sinus rhythm with average heart rate 71 beats per minute, frequent PVCs, 11.1% of time with NSVT events, longest 7 beats, occasional PACs but frequent SVT events, longest 33 minutes at rate of 190, his symptoms correlated with PVCs and SVT. He was started on metoprolol XL 50 mg daily. Today he reports that he is noticing less heart palpitations. Has had no lightheadedness, presyncope, syncope, falls. Pulse is regular on examination today, 62 when checked by me. Will continue metoprolol at current dose. He drinks 1 caffeinated beverage per day. He does smoke marijuana periodically and was recommended to stop marijuana use. Maintain good hydration and continue activity as tolerated. Will recheck a Holter monitor prior to his next visit. Cardiology follow-up in 3 months, sooner if needed. (2) SVT (supraventricular tachycardia): Code(s): I47.10 - Supraventricular tachycardia, unspecified Category: Medical Plan: As above (3) Old inferior wall myocardial infarction: Code(s): I25.2 - Old myocardial infarction Category: Medical Plan: History of old inferior infarct. Patient unaware of when he had an actual infarct. Cardiac testing confirms this has occurred. His EKG does show evidence of inferior infarct. Echocardiogram done 11/19/2021 shows EF 56%, inferior regional wall motion abnormality, moderate LVH, severe septal asymmetric hypertrophy. A nuclear stress test done 11/22/2021 shows basal inferior infarct with no reversible ischemia, EF 53%. Today he reports feeling well with no anginal symptoms. He does have issues with arthritis but remains physically active. He is on aspirin indefinitely. He is on atorvastatin 40 mg daily with ideal LDL goal less than 70. He is now on metoprolol. He is on chlorthalidone and lisinopril for blood pressure control. Labs done 07/08/2022 showed LDL 75, AST ALT normal. He is due for repeat labs. He has an upcoming visit with his PCP Dr. Yeager. Continue current med management. If LDL on recheck his greater than 70 then recommend increase in atorvastatin dose. (4) CAD (coronary artery disease): Code(s): I25.10 - Atherosclerotic heart disease of [place] coronary artery without angina pectoris Category: Medical Plan: As above (5) Essential hypertension: Code(s): I10 - Essential (primary) hypertension Category: Medical Plan: As above (6) Dyslipidemia: Code(s): E78.5 - Hyperlipidemia, unspecified Category: Medical Plan: As above Plan Time spent on chart review, documentation, interview and assessment Orders: Orders ECG 3 day holter monitor 2 Months I47.10 - Supraventricular tachycardia, unspecified, I49.3 - Ventricular premature depolarization Coding Level of Care Code Est Pt Level 4 (08109) Diagnoses PVC's (premature ventricular contractions) I49.3 SVT (supraventricular tachycardia) I47.10 Old inferior wall myocardial infarction I25.2 CAD (coronary artery disease) I25.10 Essential hypertension I10 Dyslipidemia E78.5 Time Spent (min) 28
== END 2023-09-21 10:20 | disposition home or self-care (01) ==
PROVIDERS: PCP Internal Medicine; Visit Provider Nurse Practitioner Family
DX: I49.3 Ventricular premature depolarization (principal); I47.10 Supraventricular tachycardia, unspecified; I25.2 Old myocardial infarction; I25.10 Atherosclerotic heart disease of native coronary artery without angina pectoris; I10 Essential (primary) hypertension; E78.5 Hyperlipidemia, unspecified
CPT/HCPCS: 99214

== ENCOUNTER → 2023-09-21 09:28 | Outpatient (BNVA) | payer MEDICARE, SELFPAY | PROVIDERS: PCP Internal Medicine; Visit Provider Nurse Practitioner Family | DX: I10 Essential (primary) hypertension (principal); I49.3 Ventricular premature depolarization; I47.10 Supraventricular tachycardia, unspecified; I25.2 Old myocardial infarction; I25.10 Atherosclerotic heart disease of native coronary artery without angina pectoris; E78.5 Hyperlipidemia, unspecified; Z79.899 Other long term (current) drug therapy | CPT/HCPCS: 99212 ==

== ENCOUNTER 2023-10-06 12:33 | Outpatient (REF) | payer MEDICARE, SELFPAY ==
--- NOTE | ~2023-10-06 | US_ITS ---
EXAMINATION: US SCROTUM CLINICAL INFORMATION: Hydrocele, unspecified. COMPARISON: Ultrasound scrotum March 03, 2023. TECHNIQUE: A sonogram of the scrotum was performed assessing buck-scale appearance and color Doppler flow. Spectral Doppler analysis of the arterial and venous flow were performed in the testes bilaterally. FINDINGS: RIGHT: Right testicle measures 5.3 x 2.7 x 3.7 cm, volume 27.5 mL. Parenchymal echotexture is homogeneous. No focal testicular parenchymal lesions are visualized. Spectral Doppler analysis of the arterial and venous flow is normal in the right testis. Right epididymal head is normal in size. Epididymal cysts are again noted measuring up to 2.7 x 2.1 x 2.8 cm. No right hydrocele or varicocele is seen. LEFT: Left testicle measures 5.3 x 3.0 x 2.8 cm, volume 23.4 mL. Parenchymal echotexture is homogeneous. No focal testicular parenchymal lesions are visualized. Spectral Doppler analysis of the arterial and venous flow is normal in the left testis. Left epididymal head is normal in size. Epididymal cysts again noted. Small left hydrocele. US/US scrotum IMPRESSION: 1. Small left hydrocele. 2. Bilateral epididymal head cysts. Electronically signed by: Ellis Rodriguez MD 10/29/2023 10:08 AM EDT
== END 2023-10-06 12:34 | disposition home or self-care (01) ==
LOC: HO.US 12:33
PROVIDERS: PCP Internal Medicine; Visit Provider Nurse Practitioner Family
DX: N43.3 Hydrocele, unspecified (principal)
CPT/HCPCS: 76870

== ENCOUNTER 2023-10-12 12:59 | Outpatient (REF) | payer MEDICARE, SELFPAY ==
[2023-10-12 15:04] LABS: Prostate Specific Antigen 2.94 ng/mL (<0.05-4.0)
== END 2023-10-12 13:00 | disposition home or self-care (01) ==
LOC: HO.LAB 12:59
PROVIDERS: Visit Provider Nurse Practitioner Family
DX: N40.0 Benign prostatic hyperplasia without lower urinary tract symptoms (principal); Z12.5 Encounter for screening for malignant neoplasm of prostate
CPT/HCPCS: 36415; 84153

== ENCOUNTER 2023-10-13 08:18 | Outpatient (AMB) | payer MEDICARE, SELFPAY ==
--- NOTE | 2023-10-13 08:23 | A.OFFVIS_ITS ---
Intake Visit Reasons: 6m/US/PSA (pending 10/05) Intake Note: Patient presents today for follow up visit on: ultrasound and psa result Imaging Completed: 10/06/23 PSA: 2.94 Urology Medications: none Blood Thinner: Aspirin Allergies to antibiotics: none Welder Plasma Arc Required: No Accompanied by: Self / Same As Patient Allergies No Known Allergies [No Known Allergies*] Allergy (Verified 10/13/23 19:03) Medication List - Last Reconciled 10/13/23 by ANGELA Watson aspirin (Adult Aspirin Regimen) 81 mg PO DAILY 90 days atorvastatin 40 mg PO DAILY chlorthalidone 25 mg PO DAILY 90 days clotrimazole 1% 1 appl topical BID 3 weeks fenofibrate 54 mg PO DAILY 90 days lisinopril 20 mg PO DAILY metoprolol succinate ER 50 mg PO DAILY nabumetone 750 mg PO BID PRN 30 days HPI Comments Details: Akil is a pleasant 73-year-old male patient of Dr. Yeager. He has a past medical history of left inguinal hernia, alcohol abuse, myocardial infarction, coronary artery disease, asthma, former smoker, dyslipidemia, hypertension, and arthritis. He presents to the office today for follow-up of his left-sided hydrocele. In discussion with the patient today he reports to be doing and feeling well. He reports since his last office visit here 6 months ago he continues with no bothersome urinary issues or concerns. He does continue with intermittent bilateral scrotal discomfort however describes these episodes as very infrequent. He describes discomfort as a pressure-like feeling. Recent scrotal ultrasound results reviewed with the patient today. Small left hydrocele. Bilateral epididymal head cysts. In assessment of the patient today the penis is circumcised and bilateral epididymal head cysts are noted as well as small left hydrocele. No pain elicited on exam of the testicles, scrotum, and or penis. No lesions, drainage, and or redness noted throughout these areas. Previous scar noted to right side of the scrotum as patient with a previous right-sided hydrocelectomy. Discussed at length potential causes of hydroceles. Discussed further treatment options with in office drainage verses surgical intervention versus surveillance monitoring. Risks and benefits of these interventions were discussed at length. Recent PSA results reviewed with the patient today. 10/16 2.9. He otherwise denies, incontinence, nocturia, hematuria, dysuria, foul smelling urine, changes to urinary stream, flank pain, fever, and or chills. He is happy with his current voiding parameters. He otherwise offers no other issues or concerns at this time. [facility] Medical History Left inguinal hernia (08/25/22) Alcohol abuse Myocardial infarction CAD (coronary artery disease) Asthma Chest pain Encounter for physical examination Former smoker Dyslipidemia Essential hypertension Arthritis Surgical History History of hydrocelectomy History of hemorrhoidectomy History of appendectomy Family History Father No problems noted. Mother Past heart attack Hypertension Brother HIV (human immunodeficiency virus infection) Brother No problems noted. Sister No problems noted. Sister No problems noted. Social History Housing: Apartment Are you a primary senior care assistant to a significant other at home: No Do you presently have visiting nurse or other home services: No Alcohol intake: former Patient Tobacco Use Status: Former Tobacco user Tobacco use type: Cigarette e-Cigarette/Vaping Use: Never Used Second Hand Smoke Exposure: No Substance Use Type: Marijuana Advance Directives Date on File: 10/29/18 service: No Current occupational status: unemployed and disabled Cognitive needs: No Hearing needs: No Vision needs: Yes Review of Systems Const Reports no additional complaints ENT Reports no additional complaints Card Reports as per HPI Resp Reports as per HPI GI Reports as per HPI Reports as per HPI Musc Reports as per HPI Neuro Reports no additional complaints Psych Reports as per HPI Endo Reports no additional complaints Tien/Lymph Reports no additional complaints Aller/Immun Reports no additional complaints Physical Exam Const General: cooperative, comfortable, no acute distress, well developed, alert and awake Orientation/consciousness: patient oriented x3 Limitations: no limitations HEENT Head: Yes normal to inspection, Yes normocephalic and Yes atraumatic Ears: hearing grossly normal bilaterally Eyes General: appearance normal, both eyes and all related structures Neck Neck: Yes normal visual inspection and Yes trachea midline Chest Chest palpation & inspection: normal inspection of the chest Resp Effort & Inspection: normal respiratory effort and able to speak in complete sentences Cardio Rate: regular rate GI Inspection: Yes normal to inspection General: Yes no CVA tenderness Penis: normal penis and circumcised Meatus: meatus normal Scrotum: Hydrocele present (small) on the left Testes: other (Bilateral epididymal head cysts) Back/Spine/Pelvis Back: no CVA tenderness Skin General skin exam: no rashes or lesions noted Neuro General: patient oriented x3 Extrem General: Yes normal to inspection Psych Appearance: grossly normal and well kempt Mental Status: mental status grossly normal Speech and movement: Normal speech and movement present and Clear speech present Affect: normal affect Attitude: cooperative Thought process: Normal thought process present Thought content: Normal thought content present Insight: Fair insight present (Psych) Judgement: Fair judgement present (Psych) Results Reviewed Results Reviewed: Date of Service: 10/06/23 EXAMINATION: US SCROTUM FINDINGS: RIGHT: Right testicle measures 5.3 x 2.7 x 3.7 cm, volume 27.5 mL. Parenchymal echotexture is homogeneous. No focal testicular parenchymal lesions are visualized. Spectral Doppler analysis of the arterial and venous flow is normal in the right testis. Right epididymal head is normal in size. Epididymal cysts are again noted measuring up to 2.7 x 2.1 x 2.8 cm. No right hydrocele or varicocele is seen. LEFT: Left testicle measures 5.3 x 3.0 x 2.8 cm, volume 23.4 mL. Parenchymal echotexture is homogeneous. No focal testicular parenchymal lesions are visualized. Spectral Doppler analysis of the arterial and venous flow is normal in the left testis. Left epididymal head is normal in size. Epididymal cysts again noted. Small left hydrocele. IMPRESSION: 1. Small left hydrocele. 2. Bilateral epididymal head cysts. Assessment & Plan Assessment & Plan (1) Epididymal cyst: Code(s): N50.3 - Cyst of epididymis Category: Medical (2) Hydrocele: Code(s): N43.3 - Hydrocele, unspecified Category: Medical Plan Recent scrotal ultrasound results reviewed with the patient today; as noted above. Discussed further treatment options of bilateral epididymal head cyst as well as small left hydrocele; as noted above. Discussed potential causes of epididymal head cyst as well as hydroceles. Will continue with surveillance monitoring at this time. Recent PSA results reviewed with the patient today; as noted above. Patient currently denies any bothersome urinary issues or concerns. He reports be happy with current voiding parameters. Will obtain scrotal ultrasound in 1 year. Will obtain PSA in 1 year. Follow-up in 1 year with imaging and labs to be completed prior; or sooner with any issues, concerns, and or questions. Orders: Orders US scrotum 1 Year N50.3 - Cyst of epididymis Prostate Specific Antigen 1 Year N40.0 - Benign prostatic hyperplasia without lower urinary tract symptoms Patient Instructions: The patient had an opportunity to ask questions regarding the treatment plan. All questions were answered. Physical exam, labs, and imaging were discussed and reviewed in detail. As well as risks, benefits, and discussion of treatment choices. No major barriers to understanding were identified. The patient expressed understanding and agreement with the above treatment plan. The patient was made aware they should contact our office by phone for worsening of their current condition, the appearance of new symptoms, or with any questions or concerns. Compliance is encouraged with any medications and follow up testing that is ordered. It is a privilege to be allowed the opportunity to participate in? your urological care.? Again, if you have any questions or concerns If you have any questions or concerns please do not hesitate to contact me. The office is [phone]. This note is constructed using voice recognition software. While every effort has been made to ensure accuracy maple sugar maker errors may have been included. Yours sincerely, TELLO Watson Coding Level of Care Code Est Pt Level 3 (34679) Diagnoses Epididymal cyst N50.3 Hydrocele N43.3
== END 2023-10-13 09:03 | disposition home or self-care (01) ==
PROVIDERS: PCP Internal Medicine; Visit Provider Nurse Practitioner Family
DX: N50.3 Cyst of epididymis (principal); N43.3 Hydrocele, unspecified
CPT/HCPCS: 99213

== ENCOUNTER → 2023-10-13 08:18 | Outpatient (BNVA) | payer MEDICARE, SELFPAY | PROVIDERS: PCP Internal Medicine; Visit Provider Nurse Practitioner Family | DX: N43.3 Hydrocele, unspecified (principal); N50.3 Cyst of epididymis | CPT/HCPCS: 99212 ==

== ENCOUNTER → 2023-11-23 07:47 | Outpatient (REF) | payer MEDICARE, SELFPAY ==
--- NOTE | 2023-11-23 07:50 | HM_ITS ---
Conclusion: 1. Patient was monitored for total period of 3 days and 5 hours 2. Baseline was normal sinus rhythm with average heart of 74 beats per minute 3. Frequent isolated PACs and PVCs noted with total burden of 5.4 and 2.8% respectively 4. No patient reported events MTDD
== END ==
LOC: HO.CARD 07:47
PROVIDERS: PCP Internal Medicine; Visit Provider Nurse Practitioner Family
DX: I47.10 Supraventricular tachycardia, unspecified (principal); I49.3 Ventricular premature depolarization
CPT/HCPCS: 93242

== ENCOUNTER → 2023-11-23 07:50 | Outpatient (BNV) | payer MEDICARE, SELFPAY | PROVIDERS: PCP Internal Medicine; Visit Provider Internal Medicine Cardiovascular Disease | DX: I49.1 Atrial premature depolarization (principal); I49.3 Ventricular premature depolarization | CPT/HCPCS: 93244 ==

== ENCOUNTER 2024-01-18 09:41 | Outpatient (AMB) | payer MEDICARE, SELFPAY ==
[2024-01-18 09:50] VITALS: BP 128/80; BMI 27.5
--- NOTE | 2024-01-18 09:50 | MHC.PC.OV ---
Vital Signs 01/18/24 09:50 Height 5 ft 10 in Weight 192 lb BMI 27.5 BP 128/80 Blood Pressure Location Lt brachial Position Sitting Intake Visit Reasons: bp Intake Note: Patient here for a follow up BP Front Load Trash Truck Driver Required: No Accompanied by: Self / Same As Patient Allergies No Known Allergies [No Known Allergies*] Allergy (Verified 01/18/24 09:57) Medication List - Last Reconciled 01/18/24 by Areli Howell MD aspirin (Adult Aspirin Regimen) 81 mg PO DAILY 90 days atorvastatin 40 mg PO DAILY chlorthalidone 25 mg PO DAILY 90 days clotrimazole 1% 1 appl topical BID 3 weeks fenofibrate 54 mg PO DAILY 90 days lisinopril 20 mg PO DAILY metoprolol succinate ER 50 mg PO DAILY nabumetone 750 mg PO BID PRN 30 days Tobacco use date assessed: 07/15/23 Fall risk assessment: No Falls in past year Last assessed Fall Risk: 01/18/24 Dental Screening Dental Screen Date: 07/15/23 HPI HPI Comments History of Present Illness Details The patient is a 73-year-old male presenting with hypertension follow-up alongside concerns about a potential hydrocele surgery. He reports good control of his blood pressure, measured at 128/88 mmHg. His antihypertensive regimen includes chlortalidone, lisinopril, and metoprolol. He is on atorvastatin and fenofibrate for lipid management. The patient is also experiencing back pain for which he uses napumetone as needed. Of particular concern is a hydrocele that has previously been evaluated by a urologist, who advised that surgical intervention might exacerbate the condition. This information, alongside anecdotal risks of further surgical pain, has led the patient to delay deciding on further surgical intervention. He is additionally addressing cardiovascular concerns and a dermatological rash, with respective specialist appointments scheduled. An echocardiogram revealed an ejection fraction of 50-55% without significant valvular pathology, and a recent Holter monitor showed normal sinus rhythm. Fasting blood work is planned to re-evaluate cholesterol and triglyceride levels. [facility] Medical History (Updated 01/18/24 @ 10:13 by Areli Howell MD) Left inguinal hernia (08/25/22) Alcohol abuse Myocardial infarction CAD (coronary artery disease) Asthma Chest pain Encounter for physical examination Former smoker Dyslipidemia Essential hypertension Arthritis Surgical History History of hydrocelectomy History of hemorrhoidectomy History of appendectomy Family History Father No problems noted. Mother Past heart attack Hypertension Brother HIV (human immunodeficiency virus infection) Brother No problems noted. Sister No problems noted. Sister No problems noted. Social History Housing: Apartment Are you a primary personal caregiver to a significant other at home: No Do you presently have visiting nurse or other home services: No Alcohol intake: former Patient Tobacco Use Status: Former Tobacco user Tobacco use type: Cigarette e-Cigarette/Vaping Use: Never Used Second Hand Smoke Exposure: No Substance Use Type: Marijuana Advance Directives Date on File: 10/29/18 service: No Current occupational status: unemployed and disabled Cognitive needs: No Hearing needs: No Vision needs: Yes Questionnaire Thrive Questionnaire Date Thrive assessed: 07/15/23 TRACIE-7 AMB Questionnaire TRACIE-7 Date TRACIE - 7 assessed: 07/15/23 Source: Developed by Drs. Lele Castellano, Emily Sue, Ruben Stern and colleagues, with an educational chris from [employer]. Review of Systems Const All systems reviewed & are unremarkable except as noted in HPI and below Card Denies chest pain at rest, Denies chest pain with activity, Denies edema, Denies irregular heart rhythm, Denies claudication, Denies dyspnea, Denies dyspnea on exertion, Denies orthopnea, Denies paroxysmal nocturnal dyspnea and Denies slow heart rate Resp Denies cough, Denies dyspnea and Denies dyspnea on exertion Musc Reports back pain Physical exam (Primary Care) Vital Signs: Last Vital Signs BP 128/80 01/18/24 09:50 BMI result Body Mass Index 27.5 Tobacco/Smoking Status: Tobacco use Status Tobacco use date assessed 07/15/23 01/18/24 09:50 Patient Tobacco Use Status Former Tobacco user 01/18/24 09:56 Tobacco use type Cigarette 01/18/24 09:50 e-Cigarette/Vaping Use Never Used 01/18/24 09:50 Thrive Assessment: Date of Thrive Assessment Date Thrive assessed 05/22/24 11/25/24 09:50 Resp Effort & Inspection: normal respiratory effort Auscultation: clear to auscultation bilaterally Cardio Jugular venous distension: no JVD Rate: regular rate Rhythm: regular rhythm Heart sounds: S1 normal heart sound present and S2 normal heart sound present Extrem General: Yes full ROM Coding Level of Care Code Est Pt Level 4 (92519) Complex EM visit Add On G2211 Diagnoses Mixed hyperlipidemia E78.2 Hydrocele N43.3 Essential hypertension I10 Back pain M54.9 Time Spent (min) 22 Assessment & Plan Assessment & Plan (1) Mixed hyperlipidemia: Code(s): E78.2 - Mixed hyperlipidemia Category: Medical (2) Hydrocele: Code(s): N43.3 - Hydrocele, unspecified Category: Medical (3) Essential hypertension: Code(s): I10 - Essential (primary) hypertension Category: Medical (4) Back pain: Code(s): M54.9 - Dorsalgia, unspecified Category: Medical Plan - Essential Hypertension: Continue current medications; monitor blood pressure. - Hyperlipidemia: Advised fasting blood work to assess cholesterol and triglyceride levels. - Hydrocele: Hold off on surgery; patient to consult further. - Back Pain: Refill prescription for napumetone as needed. - Rash: Follow-up with dermatology. - Alcohol Use: Advised against using alcohol for pain relief. - Preventative Care: Confirmed recent flu and COVID vaccinations. Patient was informed and verbally consented to the use of an ambient scribe for clinic note documentation during this visit. I reviewed the patient's current management of hypertension, noting good control with his existing regimen. We discussed his hesitation toward hydrocele surgery, emphasizing the potential risks versus benefits. His cardiovascular status was evaluated via a previous echocardiogram and Holter monitor, which showed no immediate concerns. I recommended continuing his current medications and advised against using alcohol as a pain management strategy. I ordered fasting blood work to evaluate lipid management and discussed his forthcoming specialist visits. Furthermore, I refilled his pain medication prescription to aid with his back pain. Orders: Orders Lipid Panel Today E78.5 - Hyperlipidemia, unspecified Comprehensive [place]. Panel Fast Today R07.9 - Chest pain, unspecified Medications: Refilled nabumetone 750 mg PO BID 30 days PRN 45 tabs 0RF pain nabumetone 750 mg PO BID 30 days PRN 45 tabs 0RF pain Patient Instructions: - Continue current blood pressure medications. - Follow up with scheduled specialist appointments. - Obtain fasting blood work as ordered. - Use napumetone for back pain as needed. - Avoid alcohol for managing pain. - Monitor any changes in symptoms or develop new issues and report back.
== END 2024-01-18 10:12 | disposition home or self-care (01) ==
PROVIDERS: PCP Internal Medicine; Visit Provider Internal Medicine
DX: E78.2 Mixed hyperlipidemia (principal); N43.3 Hydrocele, unspecified; I10 Essential (primary) hypertension; M54.9 Dorsalgia, unspecified

== ENCOUNTER → 2024-01-18 09:41 | Outpatient (BNVA) | payer MEDICARE, SELFPAY | PROVIDERS: PCP Internal Medicine; Visit Provider Internal Medicine | DX: E78.2 Mixed hyperlipidemia (principal); N43.3 Hydrocele, unspecified; I10 Essential (primary) hypertension; M54.9 Dorsalgia, unspecified | CPT/HCPCS: 99212 ==

== ENCOUNTER 2024-01-25 14:35 | Outpatient (AMB) | payer MEDICARE, SELFPAY ==
[2024-01-25 14:42] VITALS: BP 128/80; PULSE 89; BMI 27.4
--- NOTE | 2024-01-25 14:42 | A.OFFVIS_ITS ---
Vital Signs 01/25/24 14:42 Height 5 ft 10 in Weight 190 lb 14.725 oz BMI 27.4 BP 128/80 Blood Pressure Location Lt brachial Position Sitting Pulse 89 Pulse Source Pulse Oximeter Intake Visit Reasons: 3 mth s/p holter (rs) Float Operator Required: No Allergies No Known Allergies [No Known Allergies*] Allergy (Verified 01/25/24 14:45) Medication List - Last Reconciled 01/25/24 by DELMY Wagner aspirin (Adult Aspirin Regimen) 81 mg PO DAILY 90 days atorvastatin 40 mg PO DAILY chlorthalidone 25 mg PO DAILY 90 days clotrimazole 1% 1 appl topical BID 3 weeks fenofibrate 54 mg PO DAILY 90 days lisinopril 20 mg PO DAILY metoprolol succinate ER 50 mg PO DAILY nabumetone 750 mg PO BID PRN 30 days HPI HPI 3 mth s/p holter (rs): Details: Akil is a 73-year-old male with past medical history of hypertension, hyperlipidemia, inferior infarct, Prior holter monitor showing frequent PVCs, PACs and SVT. He was started on metoprolol, had repeat Holter and now presents for follow-up. Today he reports he has been feeling only brief heart palpitations lasting seconds. Overall his palpitations have lessened. No lightheadedness, presyncope, syncope, falls. He has ongoing chronic pain issues from joint arthritis. He has pains in his back, hips and knees. In spite of this he does remain physically active and walks frequently. He denies any chest discomfort brought on by walking. He has some shortness of breath with exertion which has not changed recently. No PND, orthopnea or edema. Takes his meds as directed. [facility] Medical History Left inguinal hernia (08/25/22) Alcohol abuse Myocardial infarction CAD (coronary artery disease) Asthma Chest pain Encounter for physical examination Former smoker Dyslipidemia Essential hypertension Arthritis Surgical History History of hydrocelectomy History of hemorrhoidectomy History of appendectomy Family History Father No problems noted. Mother Past heart attack Hypertension Brother HIV (human immunodeficiency virus infection) Brother No problems noted. Sister No problems noted. Sister No problems noted. Social History Housing: Apartment Are you a primary home health care worker to a significant other at home: No Do you presently have visiting nurse or other home services: No Alcohol intake: former Patient Tobacco Use Status: Former Tobacco user Tobacco use type: Cigarette e-Cigarette/Vaping Use: Never Used Second Hand Smoke Exposure: No Substance Use Type: Marijuana Advance Directives Date on File: 10/29/18 service: No Current occupational status: unemployed and disabled Cognitive needs: No Hearing needs: No Vision needs: Yes Review of Systems Const All systems reviewed & are unremarkable except as noted in HPI and below ENT Denies dizziness Card Denies chest pain, Denies chest pain at rest, Denies chest pain with activity, Denies rapid heart rate, Denies pedal edema, Denies edema, Denies leg edema, Denies lightheadedness, Denies palpitations, Denies dyspnea, Denies dyspnea on exertion and Denies orthopnea Resp Denies cough, Denies dyspnea and Denies dyspnea on exertion GI Denies hematochezia and Denies change in stool character Musc Denies abnormal gait, Denies limited range of motion, Denies muscle cramps, Denies muscle weakness, Denies numbness, Denies radiating pain into limb, Denies stiffness and Denies tingling Neuro Denies abnormal gait, Denies dizziness, Denies numbness and Denies tingling Endo Denies palpitations Physical Exam Vital Signs: Last Vital Signs Pulse 89 01/25/24 14:42 BP 128/80 01/25/24 14:42 BMI result Body Mass Index 27.4 Const General: cooperative, healthy appearing, comfortable and no acute distress Orientation/consciousness: patient oriented x3 Neck Neck: Yes normal visual inspection and Yes no JVD Resp Effort & Inspection: normal respiratory effort Auscultation: clear to auscultation bilaterally, no crackles, no rales, no r honchi and no wheezes Cardio Jugular venous distension: no JVD Rate: regular rate Rhythm: regular rhythm Heart sounds: S1 normal heart sound present, S2 normal heart sound present, no murmurs and no rubs Neuro General: patient oriented x3 Extrem General: Yes normal to inspection, No no pedal edema and No calf tenderness Psych Appearance: grossly normal Mental Status: mental status grossly normal Speech and movement: Normal speech and movement present Assessment & Plan Assessment & Plan (1) PVC's (premature ventricular contractions): Code(s): I49.3 - Ventricular premature depolarization Category: Medical Plan: Reports of heart palpitations and racing heart on prior visit. A Holter monitor was done 07/09/2023 for 5 days showing normal sinus rhythm with average heart rate 71 beats per minute, frequent PVCs, 11.1% of time with NSVT events, longest 7 beats, occasional PACs but frequent SVT events, longest 33 minutes at rate of 190, his symptoms correlated with PVCs and SVT. He was started on metoprolol XL 50 mg daily and at follow-up visit reported less heart palpitations. A repeat Holter monitor was done on 11/23/2023 for 3 days showing sinus rhythm with average heart rate 74, PACs 5.4% of the time, PVCs 2.8% of the time. Today he reports only brief palpitations, lasting seconds. He has not had any recent long runs of rapid heartbeats. Has no lightheadedness, presyncope, syncope. Pulse is regular on examination today. He drinks 1 caffeinated beverage daily. He does smoke marijuana periodically and was recommended to stop marijuana use. Maintain good hydration and continue activity as tolerated. At this time will continue current metoprolol dose. If his palpitations increase then the dose can be further titrated. Last EF 50-55%. Will recheck echo 1 year from last. (2) SVT (supraventricular tachycardia): Code(s): I47.10 - Supraventricular tachycardia, unspecified Category: Medical Plan: As above (3) Old inferior wall myocardial infarction: Code(s): I25.2 - Old myocardial infarction Category: Medical Plan: History of old inferior infarct. His EKG does show evidence of inferior infarct. A nuclear stress test done 11/22/2021 shows basal inferior infarct with no reversible ischemia, EF 53%. His last echo was done 08/11/2023 showing EF 50- 55%, basal inferior akinetic, mid inferior, mid inferior septal, basal inferolatera segments hypokinetic, unchanged from 11/19/2021. Today he reports feeling well with no anginal symptoms. He does have issues with arthritis but remains physically active. He is on aspirin indefinitely. He is on atorvastatin 40 mg daily with ideal LDL goal less than 70. He is on metoprolol. He is on chlorthalidone and lisinopril for blood pressure control. Labs done 07/08/2022 showed LDL 75, AST ALT normal. He is due for repeat labs, reminded of this. Continue current med management. If LDL on recheck his greater than 70 then recommend increase in atorvastatin dose. (4) CAD (coronary artery disease): Code(s): I25.10 - Atherosclerotic heart disease of [place] coronary artery without angina pectoris Category: Medical Plan: As above (5) Essential hypertension: Code(s): I10 - Essential (primary) hypertension Category: Medical Plan: As above (6) Dyslipidemia: Code(s): E78.5 - Hyperlipidemia, unspecified Category: Medical Plan: As above Plan Time spent on chart review, documentation, interview and assessment Orders: Orders 2 CA echo transthoracic complete 6 Months I25.10 - Atherosclerotic heart disease of [place] coronary artery without angina pectoris, I25.2 - Old myocardial infarction, I49.3 - Ventricular premature depolarization Coding Level of Care Code Est Pt Level 4 (94473) Complex EM visit Add On G2211 Diagnoses PVC's (premature ventricular contractions) I49.3 SVT (supraventricular tachycardia) I47.10 Old inferior wall myocardial infarction I25.2 CAD (coronary artery disease) I25.10 Essential hypertension I10 Dyslipidemia E78.5 Time Spent (min) 30
== END 2024-01-25 15:16 | disposition home or self-care (01) ==
PROVIDERS: PCP Internal Medicine; Visit Provider Nurse Practitioner Family
DX: I49.3 Ventricular premature depolarization (principal); I47.10 Supraventricular tachycardia, unspecified; I25.2 Old myocardial infarction; I25.10 Atherosclerotic heart disease of native coronary artery without angina pectoris; I10 Essential (primary) hypertension; E78.5 Hyperlipidemia, unspecified
CPT/HCPCS: 99214; G2211

== ENCOUNTER → 2024-01-25 14:35 | Outpatient (BNVA) | payer MEDICARE, SELFPAY | PROVIDERS: PCP Internal Medicine; Visit Provider Nurse Practitioner Family | DX: I10 Essential (primary) hypertension (principal); I49.3 Ventricular premature depolarization; I47.10 Supraventricular tachycardia, unspecified; I25.2 Old myocardial infarction; I25.10 Atherosclerotic heart disease of native coronary artery without angina pectoris; E78.5 Hyperlipidemia, unspecified; R00.2 Palpitations; Z87.891 Personal history of nicotine dependence | CPT/HCPCS: 99212 ==

== ENCOUNTER 2024-01-30 08:51 | Outpatient (REF) | payer MEDICARE, SELFPAY ==
[2024-01-30 10:56] LABS: Alanine Aminotransferase 37 U/L (0-40); Albumin Level 4.2 g/dL (3.5-5.0); Alkaline Phosphatase 38 U/L (39-117); Anion Gap 13 (12-20); Aspartate Amino Transferase 37 U/L (5-37); Bilirubin Total 0.7 mg/dL (0.0-1.0); Blood Urea Nitrogen 15 mg/dL (9-16); Calcium 9.6 mg/dL (8.4-10.2); Carbon Dioxide 30 mmol/L (22-29); Chloride 101 mmol/L (96-108); Cholesterol 141 mg/dL (<200); Estimated Glomerular Filt Rate > 60; Glucose Fasting 99 mg/dL (60-99); HDL Cholesterol 24 mg/dL (>40); LDL Cholesterol Calculated 85 mg/dL (<100); Potassium 3.8 mmol/L (3.3-5.1); Sodium 140 mmol/L (135-145); Triglycerides 161 mg/dL (<150)
== END 2024-01-30 08:52 | disposition home or self-care (01) ==
LOC: HO.LAB 08:51
PROVIDERS: PCP Internal Medicine; Visit Provider Internal Medicine
DX: E78.5 Hyperlipidemia, unspecified (principal); R07.9 Chest pain, unspecified
CPT/HCPCS: 36415; 80053; 80061

== ENCOUNTER 2024-04-01 08:49 | Emergency (ER) | payer MEDICARE, SELFPAY ==
[2024-04-01 08:50] VITALS: BP 135/88; PULSE 76; RESP 19; TEMP 36.6; O2SAT 96; BMI 27.3
[2024-04-01 10:57] LABS: Appearance Urine Clear; Color Urine Yellow; Glucose Urine UA Negative (Negative); Leukocyte Esterase Urine Negative (Negative); Nitrite Urine Negative (Negative); Specific Gravity - Urine 1.015 (1.005-1.025); Urine Blood Negative (Negative); Urine Ketones Negative (Negative); Urine Protein Negative (Neg-Trace)
--- NOTE | 2024-04-01 15:01 | ED.GENADULT ---
HPI - General Adult General Chief complaint: General Medical Stated complaint: Rash All Over Body Time Seen by Provider: 04/01/24 14:51 Source: patient Mode of arrival: ambulatory Limitations: no limitations History of Present Illness ED Provider: Connie Roper NP HPI narrative: Patient is a 74-year-old male who presents emergency department for evaluation. He has been having an intermittent rash to his scrotum for over a year now. He has been evaluated by cup trimming machine operator in the past most recently in January of 2024. He states that he has previously been given triamcinolone 0.1% cream to apply. But he states that during his most recent out break upon applying the cream his rash has become only worsened and is significantly more itchy. He denies any scrotal pain, swelling, bleeding, urethral discharge. He does admit to discomfort with urination but describes it as increase in itching sensation, no dysuria, no urinary frequency/urgency/hesitancy. Related Data Previous Rx's ?Medication ?Instructions ?Recorded aspirin 81 mg tablet,delayed 81 mg PO DAILY 90 days #90 tabs 12/02/21 release (Adult Aspirin Regimen) clotrimazole 1 % topical cream 1 appl topical BID 3 weeks #30 02/19/23 grams atorvastatin 40 mg tablet 40 mg PO DAILY #90 tabs 06/07/23 chlorthalidone 25 mg tablet 25 mg PO DAILY 90 days #90 tabs 11/17/23 fenofibrate 54 mg tablet 54 mg PO DAILY 90 days #90 tabs 11/17/23 lisinopril 20 mg tablet 20 mg PO DAILY #30 tabs 11/17/23 nabumetone 750 mg tablet 750 mg PO BID PRN pain 30 days #45 01/18/24 tabs metoprolol succinate 50 mg 50 mg PO DAILY #90 tabs 02/19/24 tablet,extended release 24 hr clotrimazole 1 % topical cream 1 appl topical BID 4 weeks #45 04/01/24 grams Allergies Allergy/AdvReac Type Severity Reaction Status Date / Time No Known Allergies Allergy Verified 04/01/24 08:55 [No Known Allergies*] Review of Systems Review of Systems: Yes all other systems are reviewed and are negative PMFSH Past Medical History Attestation statement: The following information was validated with the patient. Source: old records reviewed Medical History Left inguinal hernia (08/25/22) Alcohol abuse Myocardial infarction CAD (coronary artery disease) Asthma Chest pain Encounter for physical examination Former smoker Dyslipidemia Essential hypertension Arthritis Surgical History History of hydrocelectomy History of hemorrhoidectomy History of appendectomy Family History Family History Father No problems noted. Mother Past heart attack Hypertension Brother HIV (human immunodeficiency virus infection) Brother No problems noted. Sister No problems noted. Sister No problems noted. Social History Social History Housing: Apartment Are you a primary inspector health care facilities to a significant other at home: No Do you presently have visiting nurse or other home services: No Alcohol intake: former Patient Tobacco Use Status: Former Tobacco user Tobacco use type: Cigarette e-Cigarette/Vaping Use: Never Used Second Hand Smoke Exposure: No Substance Use Type: Marijuana Advance Directives: Yes Advance Directives Information Provided: Yes Advance Directives on File: No Advance Directives Date on File: 10/29/18 Do you have a plan to hurt others: No Plan service: No Current occupational status: unemployed and disabled Cognitive needs: No Hearing needs: No Vision needs: Yes Physical Exam ED Vital Signs: Vital Signs - 24 hr 04/01/24 08:50 Temperature 98 F Pulse Rate 76 Respiratory Rate 19 Blood Pressure 135/88 Pulse Oximetry 96 Oxygen Delivery Method Room Air BMI result Body Mass Index 27.3 Appearance: Alert.?Oriented to person, place and time. No acute distress.?Normal affect.? CVS: Heart sounds normal. Normal heart rate and rhythm.? Pulses normal.?? Respiratory: No respiratory distress.? Lung sounds clear to auscultation bilaterally?? Abdomen: Soft and non-tender. Normoactive bowel sounds. Skin: Skin warm and dry.? Normal skin color.? Performed genital examination with pick up driver ED water quality technician Bruna; intertriginous regions bilateral groin with erythematous macular rash localized satellite lesions without warmth, drainage, or moist. No extension to the perineum. Non circumcised, upon retraction of the foreskin there is no lesions to the tip of the penis no edema nontender, no urethral discharge on manipulation. Neuro: Moves all extremities spontaneously. Sensation intact bilaterally. Ambulates with normal steady gait. Medical Decision Making Medical Decision Making [facility] Narrative: Patient is a 74-year-old male presents emergency department for evaluation of an intermittent chronic rash to the groin/scrotum as per HPI. It seems he has been followed by dermatology in primary course of treatment has been a topical corticosteroid. However he states during this most recent outbreak it has only worsened his symptoms. On my evaluation the rash appears to be more consistent with a fungal etiology and which the steroid may be exacerbating this. Advised against topical steroid at this time, sent prescription for clotrimazole cream to pharmacy, discussed twice daily cleansing thorough drying before application of the cream. Discussed strict return precautions. At this time is not consistent with cellulitis, folliculitis, Vic's gangrene. Stable for discharge home outpatient follow-up with PCP/dermatology. Differential Diagnosis Differential Diagnoses: The differential diagnosis associated with the presentation includes (See narrative above) Lab Data MDM Lab Attestation statement: I reviewed the patient's lab results. (Urinalysis without evidence of urinary tract infection or microscopic hematuria.) Labs: Lab Results 04/01/24 Range/Units 10:41 Urine Color Yellow Urine Appearance Clear Urine pH 7.0 (5.0-9.0) Ur Specific [place] 1.015 (1.005-1.025) Urine Protein Negative (Neg-Trace) mg/dL Urine Glucose (UA) Negative (Negative) mg/dL Urine Ketones Negative (Negative) mg/dL Urine Blood Negative (Negative) Urine Nitrite Negative (Negative) Ur Leukocyte Esterase Negative (Negative) External Record Review External record reviewed: Outpatient record Prescription Management I considered prescription management with: Other (See narrative above) Discharge Plan Discharge Clinical Impression: Tinea cruris Patient Disposition: Home, Self-Care Instructions: Jock Itch (ED) Additional Instructions: refrain form using the steroid cream as this may be worsening your current rash. It is consistant with a fungal infections, tinea cruris, commonly known as jock itch. A prescription for antifungal cream is being sent to your pharmacy. clean the area twice daily with warm water, non scented soap, and DRY COMPLETELY. Then paply the cream afterwars. Once the rash disappears, continue applying for 1-2 weeks as the infection may return quickly if you do not keep applying. Prescriptions: New clotrimazole 1 % cream 1 appl topical BID 28 Days Qty: 45 0RF No Action atorvastatin 40 mg tablet 40 mg PO DAILY Qty: 90 3RF fenofibrate 54 mg tablet 54 mg PO DAILY 90 Days Qty: 90 1RF chlorthalidone 25 mg tablet 25 mg PO DAILY 90 Days Qty: 90 1RF lisinopril 20 mg tablet 20 mg PO DAILY Qty: 30 5RF Rx Instructions: Dose reduced metoprolol succinate 50 mg tablet extended release 24 hr 50 mg PO DAILY Qty: 90 3RF aspirin [Adult Aspirin Regimen] 81 mg tablet,delayed release (DR/EC) 81 mg PO DAILY 90 Days Qty: 90 3RF clotrimazole 1 % cream 1 appl topical BID 21 Days Qty: 30 0RF nabumetone 750 mg tablet 750 mg PO BID PRN (Reason: pain) 30 Days Qty: 45 0RF Referrals: Areli Sánchez MD [Primary Care Provider] - Print Language: Austrian
[2024-04-01 15:55] VITALS: BP 139/95; PULSE 78; RESP 18; TEMP 36.6; O2SAT 98
[2024-04-01 16:10] VITALS: BP 139/95; PULSE 78; RESP 18; TEMP 36.6; O2SAT 98
== END 2024-04-01 16:11 | disposition home or self-care (01) ==
PROVIDERS: Emergency Provider Emergency Medicine Emergency Medical Services; PCP Internal Medicine
DX: B35.6 Tinea cruris (principal); R21 Rash and other nonspecific skin eruption; Z87.891 Personal history of nicotine dependence; Z79.899 Other long term (current) drug therapy
CPT/HCPCS: 81003; 99283

== ENCOUNTER → 2024-04-08 07:06 | Outpatient (BNVA) | payer MEDICARE, SELFPAY | PROVIDERS: PCP Internal Medicine; Visit Provider Nurse Practitioner Family | DX: B35.6 Tinea cruris (principal) | CPT/HCPCS: 96127; 99212 ==

== ENCOUNTER 2024-04-08 07:14 | Outpatient (AMB) | payer MEDICARE, SELFPAY ==
[2024-04-08 07:23] VITALS: BP 140/82; PULSE 69; O2SAT 96; BMI 27.7
--- NOTE | 2024-04-08 07:23 | A.OFFPC_ITS ---
Vital Signs 3 04/08/24 07:23 Height 5 ft 10 in Weight 193 lb BMI 27.7 BP 140/82 H Blood Pressure Location Lt brachial Position Sitting Pulse 69 Pulse Source Pulse Oximeter Pulse Oximetry (%) 96 Oxygen Delivery Method Room Air Intake Visit Reasons: [facility] [place] 04[place]01 rash all over body Allergies No Known Allergies [No Known Allergies*] Allergy (Verified 04/08/24 07:23) Tobacco use date assessed: 04/08/24 Fall risk assessment: No Falls in past year Last assessed Fall Risk: 04/08/24 Dental Screening Dental Screen Date: 04/08/24 Did you have a dental visit in the last 12 months?: Yes Did you have a dental problem in the last 6 months where you did not have access to dental care?: No Was dental information given to patient?: Patient has dentist HPI HPI Comments 2 History of Present Illness0 Details 74 y/o male patient who presents to the clinic for EDF. He was admitted at [facility] [place] on 04/01/24 and discharged home the same day for Tinea Cruris. He was prescribed Clotrimazole cream. He has f/u Appointment with his Dermatology in April. [facility] Medical History Left inguinal hernia (08/25/22) Alcohol abuse Myocardial infarction CAD (coronary artery disease) Asthma Chest pain Encounter for physical examination Former smoker Dyslipidemia Essential hypertension Arthritis Surgical History History of hydrocelectomy History of hemorrhoidectomy History of appendectomy Family History Father No problems noted. Mother Past heart attack Hypertension Brother HIV (human immunodeficiency virus infection) Brother No problems noted. Sister No problems noted. Sister No problems noted. Social History Housing: Apartment Are you a primary adult daycare coordinator to a significant other at home: No Do you presently have visiting nurse or other home services: No Alcohol intake: former Patient Tobacco Use Status: Former Tobacco user Tobacco use type: Cigarette e-Cigarette/Vaping Use: Never Used Second Hand Smoke Exposure: No Substance Use Type: Marijuana Advance Directives Date on File: 10/29/18 service: No Current occupational status: unemployed and disabled Cognitive needs: No Hearing needs: No Vision needs: Yes Questionnaire PHQ-9 Over the last 2 weeks, how often have you been bothered by any of the following problems? 1. Little interest or pleasure in doing things: not at all 2. Feeling down, depressed, or hopeless: not at all 3. Trouble falling or staying asleep, or sleeping too much: not at all 4. Feeling tired or having little energy: not at all 5. Poor appetite or overeating: not at all 6. Feeling bad about yourself - or that you are a failure or have let yourself or your family down: not at all 7. Trouble concentrating on things, such as reading the newspaper or watching television: not at all 8. Moving or speaking so slowly that other people could have noticed. Or the opposite - being so fidgety or restless that you have been moving around a lot more than usual: not at all 9. Thoughts that you would be better off or of hurting yourself in some way: not at all Total score: 0 Depression Screening Interpretation: Negative Depression Screening Done: Yes 62424 - PHQ-9 Billing: Yes Source: Developed by Drs. Lele Castellano, Emily Sue, Ruben Stern and colleagues, with an educational chris from [employer]. Thrive Questionnaire Date Thrive assessed: 04/08/24 I am a: Patient What is your living situation today?: I have a steady place to live Within the past 12 months, did the food you bought not last and you didn't have the money to get more?: Never true Within the past 12 months, did you worry whether your food would run out before you got money to buy more?: Never true Do you have trouble paying for medicines?: No Do you have trouble getting transportation to medical appointments?: No Do you have trouble paying your heating and electricity bill?: No Do you have trouble taking care of your child, family member or friend?: No Do you have trouble with day-to-day activities such as bathing, preparing meals, shopping, managing finances, etc.?: No Are you currently unemployed and looking for a job?: No Are you interested in more education?: No Currently or been in a relationship where the following occur: No concerns reported THRIVE Score: 0 AUDIT C Alcohol Use Questionnaire (AUDIT-C) 1. How often do you have a drink containing alcohol?: Monthly or less 2. How many drinks containing alcohol do you have on a typical day when you are drinking?: 1 or 2 3. How often do you have six or more drinks on one occasion?: Never Total Score: 1 TRACIE-7 AMB Questionnaire TRACIE-7 Date TRACIE - 7 assessed: 04/08/24 Feeling nervous, anxious, or on edge: 0 = Not at all Not being able to stop or control worryin = Not at all Worrying too much about different things: 0 = Not at all Trouble relaxin = Not at all Being so restless that it is hard to sit still: 0 = Not at all Becoming easily annoyed or irritable: 0 = Not at all Feeling afraid as if something awful might happen: 0 = Not at all Total TRACIE-7 score (0-4 normal; 5-9 mild; 10-14 moderate; 15-21 severe): 0 Source: Developed by Drs. Lele Castellano, Emily Sue, Ruben Stern and colleagues, with an educational chris from [employer]. Review of Systems Const All systems reviewed & are unremarkable except as noted in HPI and below Physical exam (Primary Care) Vital Signs: Last Vital Signs Pulse 69 04/08/24 07:23 BP 140/82 H 04/08/24 07:23 Pulse Ox 96 04/08/24 07:23 Oxygen Delivery Method Room Air 04/08/24 07:23 BMI result Body Mass Index 27.7 Tobacco/Smoking Status: Tobacco use Status Tobacco use date assessed 04/08/24 04/08/24 07:29 Patient Tobacco Use Status Former Tobacco user 04/08/24 07:29 Tobacco use type Cigarette 04/08/24 07:29 e-Cigarette/Vaping Use Never Used 04/08/24 07:29 PHQ-9: PHQ-9 Score PHQ-9: Total score 0 04/08/24 07:29 Depression Screening Interpretation: Negative Thrive Assessment: Date of Thrive Assessment Date Thrive assessed 04/08/24 04/08/24 07:29 Currently or been in a relationship where the following occur: No concerns reported Const General: cooperative and no acute distress Orientation/consciousness: patient oriented x3 Penis: uncircumcised Male genitals images: 2 1. Intertriginous regions bilateral groin with erythematous macular rash localized satellite lesions without warmth, drainage, or moist. Neuro General: patient oriented x3, gait normal and moves all extremities Psych Speech and movement: Normal speech and movement present Coding Level of Care Code Est Pt Level 4 (10062) Diagnoses Tinea cruris B35.6 Additional Codes PHQ-9 - 89113 - PHQ-9 Billing: Yes ([id number]) Time Spent (min) 20 Assessment & Plan Assessment & Plan (1) Tinea cruris: Code(s): B35.6 - Tinea cruris Category: Medical Plan: Ordered Fluconazole once weekly for four weeks. Continue using Clotrimazole F/U with Derm as scheduled. Medications: New 2 fluconazole TAKE 1 TABLET ONCE A WEEK FOR FOUR WEEKS 150 mg PO QWEEK 4 tabs 0RF B35.6 - Tinea cruris Refilled 2 clotrimazole 1% 1 appl topical BID 4 weeks 45 grams 0RF B35.6 - Tinea cruris Discontinued 2 clotrimazole 1% Discontinued Reason: Patient Completed Course 1 appl topical BID 3 weeks 30 grams 0RF
== END 2024-04-08 07:53 | disposition home or self-care (01) ==
PROVIDERS: PCP Internal Medicine; Visit Provider Nurse Practitioner Family
DX: B35.6 Tinea cruris (principal)

== ENCOUNTER 2024-04-22 01:41 | Emergency (ER) | payer MEDICARE, SELFPAY ==
[2024-04-22 01:45] VITALS: BP 150/93; PULSE 74; RESP 16; TEMP 36.4; O2SAT 97; BMI 26.5
--- NOTE | 2024-04-22 03:48 | PC.NURSE ---
pt is a&o, red rash in back, truck and stoney area, pt is sitting on strechter awaiting to be seen.
--- NOTE | 2024-04-22 04:39 | ED_ITS ---
HPI - Skin/Abscess/Foreign Bdy General Chief complaint: Skin/Abscess/Foreign Body Stated complaint: rash Time Seen by Provider: 04/22/24 04:27 Source: patient Mode of arrival: ambulatory Limitations: no limitations History of Present Illness ED Provider: DR. Lynn HPI narrative: a 74-year-old male came in for evaluation of diffuse itching and hives on his body for the last 3-4 days, patient declined any changes in his daily routine, no new medication. patient was seen for groin rash that was diagnosed in the past for fungal infection was given clotrimazole with no relief of his symptoms. No fever, no chills, no CP, no abdominal pain, no sore throat, no voice change. Related Data Previous Rx's ?Medication ?Instructions ?Recorded aspirin 81 mg tablet,delayed 81 mg PO DAILY 90 days #90 tabs 12/02/21 release (Adult Aspirin Regimen) atorvastatin 40 mg tablet 40 mg PO DAILY #90 tabs 06/07/23 chlorthalidone 25 mg tablet 25 mg PO DAILY 90 days #90 tabs 11/17/23 fenofibrate 54 mg tablet 54 mg PO DAILY 90 days #90 tabs 11/17/23 lisinopril 20 mg tablet 20 mg PO DAILY #30 tabs 11/17/23 nabumetone 750 mg tablet 750 mg PO BID PRN pain 30 days #45 01/18/24 tabs metoprolol succinate 50 mg 50 mg PO DAILY #90 tabs 02/19/24 tablet,extended release 24 hr clotrimazole 1 % topical cream 1 appl topical BID 4 weeks #45 04/08/24 grams fluconazole 150 mg tablet 150 mg PO QWEEK #4 tabs 04/08/24 diphenhydramine HCl 25 mg capsule 25 mg PO TID PRN itching #14 caps 04/22/24 (Benadryl) prednisone 20 mg tablet 20 mg PO BID #12 tabs 04/22/24 Allergies Allergy/AdvReac Type Severity Reaction Status Date / Time No Known Allergies Allergy Verified 04/22/24 01:47 [No Known Allergies*] Review of Systems 2 Review of Systems: all other systems are reviewed and are negative Constitutional: Reports as per HPI and Reports no additional constitutional complaints Eyes: Reports as per HPI and Reports no additional eye complaints Reports system reviewed and no additional complaints, except as documented Cardiovascular: Reports as per HPI and Reports no additional cardiovascular complaints Respiratory: Reports as per HPI and Reports no additional respiratory complaints Gastrointestinal: Reports as per HPI and Reports no additional gastrointestinal complaints Genitourinary: Reports no additional female genitourinary complaints Musculoskeletal: Reports no additional musculoskeletal complaints Skin/Breast: Reports system reviewed and no additional complaints, except as docu Psychiatric: Reports no additional psychiatric complaints Endocrine: Reports no additional endocrine complaints Hematologic/Lymphatic: Reports no additional hematologic/lymphatic complaints Allergic/Immunologic: Reports no additional allergic/immunologic complaints Reports system reviewed and no additional complaints, except as documented and Reports Abnormal speech present [facility] Past Medical History Medical History Left inguinal hernia (08/25/22) Alcohol abuse Myocardial infarction CAD (coronary artery disease) Asthma Chest pain Encounter for physical examination Former smoker Dyslipidemia Essential hypertension Arthritis Surgical History History of hydrocelectomy History of hemorrhoidectomy History of appendectomy Family History Family History Father No problems noted. Mother Past heart attack Hypertension Brother HIV (human immunodeficiency virus infection) Brother No problems noted. Sister No problems noted. Sister No problems noted. Social History Social History Housing: Apartment Are you a primary professional healthcare representative to a significant other at home: No Do you presently have visiting nurse or other home services: No Alcohol intake: former Patient Tobacco Use Status: Former Tobacco user Tobacco use type: Cigarette Smoked in Last 30 Days: No e-Cigarette/Vaping Use: Never Used Second Hand Smoke Exposure: No Use of substances other than those prescribed or required for medical reasons: No Substance Use Type: Marijuana Advance Directives: No Advance Directives Information Provided: Yes Advance Directives Date on File: 10/29/18 Do you have a plan to hurt others: No Plan service: No Current occupational status: unemployed and disabled Cognitive needs: No Hearing needs: No Vision needs: Yes Physical Exam 2 Vital Signs: Vital Signs: Last Vital Signs Temp 97.6 F 04/22/24 04:40 Pulse 78 04/22/24 04:40 Resp 18 04/22/24 04:40 BP 169/101 H 04/22/24 04:40 Pulse Ox 97 04/22/24 04:40 O2 Del Method Room Air 04/22/24 04:40 BMI result Body Mass Index 26.5 Vital signs have been reviewed and appear to be correct. Blood pressure elevated. Heart rate normal. Respiratory rate normal. Temperature normal. Oxygen saturation normal. Appearance: Alert. Oriented X3. No acute distress. Head: Normal external exam. Normocephalic. Atraumatic. No [place] La Fuente signs noted. No raccoon eyes noted Eyes: PERRLA. EOMI. Conjunctiva and sclera normal. Eyelids normal. ENT: TM's Normal. Pharynx normal. Uvula midline. Moist mucous membranes. No trismus noted. No drooling noted. No muffled voice noted. Neck: Normal inspection. Neck supple. FROM. No adenopathy. Thyroid Normal. No meningeal signs. No neck mass noted. CVS: Normal heart rate and rhythm. Heart sound normal. No murmurs noted. Pulses normal throughout. Respiratory: No respiratory distress. Painless inspiration. Breath sounds normal. No wheezes/rales/rhonchi noted. Chest nontender. No accessory muscle usage noted or decreased air movement noted. Abdomen: Soft and nontender. Bowel sounds normal in all 4 quadrants. No distention noted. No organomegaly noted. No visible injury noted. Back: No CVA tenderness. Full range of motion noted. Skin: diffuse hives on the upper chest, upper back, lower abdomen. exam: Circumcised, no penile discharge, no rash on the penis or ulceration. Extremities: No lower extremity edema. Extremities exhibit normal range of motion. Extremities nontender. Neuro: Oriented X 3. Cranial nerve exam: II-XII are grossly intact No motor deficit. No sensory deficit. Reflexes normal. Course Reevaluation(s) Reevaluation #1: Hives with pruritus. No sign of infection, no history of new medication started, no change in patient is daily routine. Will start the patient on Benadryl and prednisone. Time: 04:46 Medications Administered Discontinued Medications Generic Name Dose Route Start Last Admin Trade Name Freq PRN Reason Stop Dose Admin Diphenhydramine HCl 25 mg 04/22/24 04:38 04/22/24 04:57 Diphenhydramine Hcl 25 Mg Capsule PO 04/22/24 04:39 25 mg ONCE ONE Administration Prednisone 60 mg 04/22/24 04:38 04/22/24 04:57 Prednisone 20 Mg Tablet PO 04/22/24 04:39 60 mg ONCE ONE Administration Medical Decision Making Differential Diagnosis Differential Diagnoses: The differential diagnosis associated with the presentation includes ( Hives, allergic reaction, cellulitis.) Admission/Observation Consideration of admission/observation: Escalation of care including admission/observation considered Discharge Plan Discharge Clinical Impression: Hives Patient Disposition: Home, Self-Care Instructions: Urticaria (ED) Prescriptions: New prednisone 20 mg tablet 20 mg PO BID Qty: 12 0RF diphenhydramine HCl [Benadryl] 25 mg capsule 25 mg PO TID PRN (Reason: itching) Qty: 14 0RF No Action atorvastatin 40 mg tablet 40 mg PO DAILY Qty: 90 3RF fenofibrate 54 mg tablet 54 mg PO DAILY 90 Days Qty: 90 1RF chlorthalidone 25 mg tablet 25 mg PO DAILY 90 Days Qty: 90 1RF lisinopril 20 mg tablet 20 mg PO DAILY Qty: 30 5RF Rx Instructions: Dose reduced metoprolol succinate 50 mg tablet extended release 24 hr 50 mg PO DAILY Qty: 90 3RF aspirin [Adult Aspirin Regimen] 81 mg tablet,delayed release (DR/EC) 81 mg PO DAILY 90 Days Qty: 90 3RF nabumetone 750 mg tablet 750 mg PO BID PRN (Reason: pain) 30 Days Qty: 45 0RF clotrimazole 1 % cream 1 appl topical BID 28 Days Qty: 45 0RF fluconazole 150 mg tablet 150 mg PO QWEEK Qty: 4 0RF Rx Instructions: TAKE 1 TABLET ONCE A WEEK FOR FOUR WEEKS Interventions: ED Discharge Assessment Last Done: 04/22/24 05:00 Print Language: Marshallese
[2024-04-22 04:40] VITALS: BP 169/101; PULSE 78; RESP 18; TEMP 36.4; O2SAT 97
[2024-04-22] MEDS: predniSONE 20 MG TABLET 60 MG PO (04:57)
[2024-04-22] MEDS: diphenhydrAMINE HCL 25 MG CAPSULE PO (04:57)
--- NOTE | 2024-04-22 04:59 | PC.NURSE ---
pt medicated per apr. reviewed discharge instruction with pt. pt verbalized understanding. no sign of distress.
[2024-04-22 05:00] VITALS: BP 169/101; PULSE 78; RESP 18; TEMP 36.4; O2SAT 97
== END 2024-04-22 05:00 | disposition home or self-care (01) ==
PROVIDERS: Emergency Provider Emergency Medicine
DX: L50.0 Allergic urticaria (principal); Z87.891 Personal history of nicotine dependence
CPT/HCPCS: 99283; 99284

== ENCOUNTER 2024-07-25 09:05 | Outpatient (AMB) | payer MEDICARE, SELFPAY ==
--- NOTE | 2024-07-25 09:12 | A.OFFPC_ITS ---
Vital Signs 07/25/24 09:14 Height 5 ft 11 in Weight 188 lb BMI 26.2 BP 132/86 Blood Pressure Location Lt brachial Position Sitting Intake Visit Reasons: Annual exam - see comments Intake Note: Patient here for an annual physical exam Security Orderly Required: No Accompanied by: Self / Same As Patient Allergies No Known Allergies [No Known Allergies*] Allergy (Verified 07/25/24 09:28) Medication List - Last Reconciled 07/25/24 by Areli Howell MD aspirin (Adult Aspirin Regimen) 81 mg PO DAILY 90 days atorvastatin 40 mg PO DAILY chlorthalidone 25 mg PO DAILY 90 days clotrimazole 1% 1 appl topical BID 4 weeks diphenhydramine HCl (Benadryl) 25 mg PO TID PRN fenofibrate 54 mg PO DAILY 90 days lisinopril 20 mg PO DAILY metoprolol succinate ER 50 mg PO DAILY nabumetone 750 mg PO BID PRN 30 days Tobacco use date assessed: 04/08/24 Fall risk assessment: No Falls in past year Last assessed Fall Risk: 07/25/24 Dental Screening Dental Screen Date: 04/08/24 HPI HPI Comments History of Present Illness Details The patient is a 74-year-old male presenting for his annual physical examination. He has managed essential hypertension effectively with chlortalidone and lisinopril, reflected in good recent blood pressure control. The patient's hyperlipidemia has been kept in check with atorvastatin, showing satisfactory cholesterol levels in previous test results. He reported experiencing episodic testicular pain, associated with a history of benign prostatic hyperplasia, along with prior surgeries including an appendectomy, hemorrhoids, and hydroselectomy. The patient's osteoarthritis manifestations primarily impact the knees, ankles, and hands, and he has used braces for support. The patient shares a lifelong history of bronchitis and describes occasional depressive and anxious feelings, though he declined pharmacological intervention for these. Sleep disturbances are a concern, and the patient emphasizes the necessity of obtaining six hours of sleep to function adequately. He partakes in alcohol, consuming two to three shots of hard liquor a couple of times per week. Immunization for pneumonia is current; however, he lacks a recent tetanus booster, which was agreed upon during the visit. Negative results from a Cologuard test performed three years ago aligned with his refusal to undergo another colonoscopy following a previous adverse experience. Recent laboratory work indicated stable health parameters without the need for additional immediate blood tests. Future cardiac evaluation, specifically an echocardiogram in January, is part of ongoing cardiovascular monitoring. - Pneumonia vaccine is current. - Agreed to receive tetanus-diphtheria ( Td) vaccine today. - Cologuard test for colon cancer screen ing performed three years ago; results negative. - Current medications include atorvastat in, lisinopril, chlortalidone, and baby aspirin. - [facility]. - Regular alcohol consumption, discussed risk reduction. [facility] Medical History (Updated 07/25/24 @ 09:43 by Areli Howell MD) Left inguinal hernia (08/25/22) Alcohol abuse Myocardial infarction CAD (coronary artery disease) Asthma Chest pain Encounter for physical examination Former smoker Dyslipidemia Essential hypertension Arthritis Surgical History History of hydrocelectomy History of hemorrhoidectomy History of appendectomy Family History Father No problems noted. Mother Past heart attack Hypertension Brother HIV (human immunodeficiency virus infection) Brother No problems noted. Sister No problems noted. Sister No problems noted. Social History (Updated 07/25/24 @ 09:36 by Areli Howell MD) Housing: Apartment Are you a primary regular senior care provider to a significant other at home: No Do you presently have visiting nurse or other home services: No Alcohol intake: current Alcohol intake frequency: a few times a week Alcohol type: hard liquor Patient Tobacco Use Status: Former Tobacco user Tobacco use type: Cigarette e-Cigarette/Vaping Use: Never Used Second Hand Smoke Exposure: No Substance Use Type: Marijuana Advance Directives Date on File: 10/29/18 service: No Current occupational status: unemployed and disabled Cognitive needs: No Hearing needs: No Vision needs: Yes Questionnaire PHQ-9 Over the last 2 weeks, how often have you been bothered by any of the following problems? 1. Little interest or pleasure in doing things: nearly every day 2. Feeling down, depressed, or hopeless: nearly every day 3. Trouble falling or staying asleep, or sleeping too much: nearly every day 4. Feeling tired or having little energy: not at all 5. Poor appetite or overeating: not at all 6. Feeling bad about yourself - or that you are a failure or have let yourself or your family down: more than half the days 7. Trouble concentrating on things, such as reading the newspaper or watching television: more than half the days 8. Moving or speaking so slowly that other people could have noticed. Or the opposite - being so fidgety or restless that you have been moving around a lot more than usual: not at all 9. Thoughts that you would be better off or of hurting yourself in some way: not at all Total score: 13 Depression Screening Interpretation: Positive Depression Screening Follow-up: Existing condition, Follow-up Visit Requested and Declines treatment Depression Screening Done: Yes 32444 - PHQ-9 Billing: Yes Source: Developed by Drs. Lele Castellano, Emily Sue, Ruben Stern and colleagues, with an educational chris from [employer]. Thrive Questionnaire Date Thrive assessed: 07/25/24 I am a: Patient What is your living situation today?: I have a steady place to live Within the past 12 months, did the food you bought not last and you didn't have the money to get more?: Sometimes True Within the past 12 months, did you worry whether your food would run out before you got money to buy more?: Sometimes True Do you have trouble paying for medicines?: No Do you have trouble getting transportation to medical appointments?: No Do you have trouble paying your heating and electricity bill?: I choose not to answer this question Do you have trouble taking care of your child, family member or friend?: I choose not to answer this question Do you have trouble with day-to-day activities such as bathing, preparing meals, shopping, managing finances, etc.?: No Are you currently unemployed and looking for a job?: No Are you interested in more education?: No Please select the resources that you would like help with: Housing/Senior Care Currently or been in a relationship where the following occur: I choose not to answer THRIVE Score: 2 AUDIT C Alcohol Use Questionnaire (AUDIT-C) 1. How often do you have a drink containing alcohol?: 2-4 times a month 2. How many drinks containing alcohol do you have on a typical day when you are drinking?: 1 or 2 3. How often do you have six or more drinks on one occasion?: Never Total Score: 2 Score Reviewed/Action Taken: No TRACIE-7 AMB Questionnaire TRACIE-7 Date TRACIE - 7 assessed: 04/08/24 Feeling nervous, anxious, or on edge: 3 = Nearly every day Not being able to stop or control worryin = Not at all Worrying too much about different things: 2 = More than half the days Trouble relaxin = Several days Being so restless that it is hard to sit still: 0 = Not at all Becoming easily annoyed or irritable: 0 = Not at all Feeling afraid as if something awful might happen: 1 = Several days Total TRACIE-7 score (0-4 normal; 5-9 mild; 10-14 moderate; 15-21 severe): 7 Source: Developed by Drs. Lele Castellano, Emily Sue, Ruben Stern and colleagues, with an educational chris from [employer]. TRACIE-7 Assessment Billing TRACIE-7 Assessment Tool: TRACIE-7 Assessment 29229 Review of Systems Const All systems reviewed & are unremarkable except as noted in HPI and below Card Denies chest pain at rest, Denies chest pain with activity, Denies edema, Denies irregular heart rhythm, Denies claudication, Denies dyspnea, Denies dyspnea on exertion, Denies orthopnea, Denies paroxysmal nocturnal dyspnea and Denies slow heart rate Resp Denies cough, Denies dyspnea and Denies dyspnea on exertion GI Denies abdominal pain, Denies change in bowel habits, Denies excessive flatus, Denies nausea and Denies vomiting Denies urinary hesitancy, Denies urinary incontinence and Denies urinary urgency Musc Denies abnormal gait, Reports back pain, Denies atrophy, Denies deformity, Reports arthralgias and Denies limited range of motion Skin/Breast Denies bleeding lesions, Denies changing lesions and Denies rash Neuro Denies abnormal gait, Denies behavioral changes and Denies lack of coordination Psych Denies behavioral changes Physical exam (Primary Care) Vital Signs: Last Vital Signs BP 132/86 07/25/24 09:14 BMI result Body Mass Index 26.2 Tobacco/Smoking Status: Tobacco use Status Tobacco use date assessed 04/08/24 07/25/24 09:18 Patient Tobacco Use Status Former Tobacco user 07/25/24 09:18 Tobacco use type Cigarette 07/25/24 09:18 e-Cigarette/Vaping Use Never Used 07/25/24 09:18 PHQ-9: PHQ-9 Score PHQ-9: Total score 13 07/25/24 09:18 Depression Screening Interpretation: Positive Depression Screening Follow-up: Existing condition, Follow-up Visit Requested and Declines treatment Thrive Assessment: Date of Thrive Assessment Date Thrive assessed 07/25/24 07/25/24 09:18 Currently or been in a relationship where the following occur: I choose not to answer HENMT Head: Yes normal to inspection, Yes normocephalic and Yes atraumatic Ears: external ears normal Eyes General: appearance normal, both eyes and all related structures Eyelids: Yes eyelids normal Conjunctivae: conjunctivae normal Neck Neck: Yes normal visual inspection and Yes supple Resp Effort & Inspection: normal respiratory effort Auscultation: clear to auscultation bilaterally Cardio Jugular venous distension: no JVD Rate: regular rate Rhythm: regular rhythm Heart sounds: S1 normal heart sound present and S2 normal heart sound present GI Inspection: Yes normal to inspection Palpation (GI): Soft to palpation and nontender Auscultation: normal bowel sounds Skin General skin exam: no rashes or lesions noted Neuro General: no focal motor deficits Extrem General: Yes full ROM Psych Appearance: grossly normal Coding Level of Care Code Est Pt Prev Care >65y(34655) Diagnoses Encounter for physical examination Z00.00 Mild recurrent major depression F33.0 Additional Codes PHQ-9 - 81003 - PHQ-9 Billing: Yes ([id number]) TRACIE-7 Assessment Billing - TRACIE-7 Assessment Tool: TRACIE-7 Assessment 41289 ([id number]) Time Spent (min) 30 Assessment & Plan Assessment & Plan (1) Encounter for physical examination: Code(s): Z00.00 - Encounter for general adult medical examination without abnormal findings Category: Medical (2) Mild recurrent major depression: Code(s): F33.0 - Major depressive disorder, recurrent, mild Category: Medical Plan We discussed concerns regarding the management of chronic conditions, including essential hypertension and hyperlipidemia, with continuation of current medications advised due to their efficacy. For benign prostatic hyperplasia, monitoring will be ongoing, with pain management adjustments if necessary. Screening for colon cancer will proceed with non-invasive methods due to previous adverse reactions to colonoscopy. The patient will receive the tetanus vaccination today. Current echocardiogram planning will facilitate continued cardiac assessment in collaboration with the chemical test engineer. To address insomnia, mental health, and osteoarthritis concerns, I emphasized a holistic approach that balances intervention and lifestyle changes. Alcohol consumption was reviewed with a focus on moderation. Regular check-ins are crucial, and future lab work will continue to monitor lipid levels and other health indicators. Lastly, I re-emphasized the importance of maintaining preventive health measures. Patient was informed and verbally consented to the use of an ambient scribe for clinic note documentation during this visit. During our discussion, the patient and I reviewed his chronic conditions and agreed on the continuation of current treatment strategies for hypertension and hyperlipidemia. We discussed the benefits of maintaining these regimens, given their demonstrated effectiveness in controlling symptoms. The patient was receptive to receiving a tetanus booster today to maintain vaccination status. Due to his hesitance towards colonoscopy following a previous negative experience, we decided to monitor with alternative non-invasive screenings, including scheduling Cologuard tests in the future. I advised moderation concerning alcohol consumption to mitigate any potential health complications. The echocardiogram arranged for January will address ongoing cardiovascular evaluation coordinated with his chemical test engineer. To manage the effects of osteoarthritis and support braces were recommended. We discussed periodically assessing insomnia, depression, and anxiety, noting how these intersect with his personal and political stress awareness. We outlined a plan for periodic lab tests within the next four months. I invited the patient to contact me should any emerging symptoms or concerns arise before the next appointment. Orders: Orders Lipid Panel 4 Months E78.5 - Hyperlipidemia, unspecified Comprehensive [place]. Panel Fast 4 Months M54.9 - Dorsalgia, unspecified Medications: Refilled lisinopril Dose reduced 20 mg PO DAILY 30 tabs 5RF nabumetone 750 mg PO BID 30 days PRN 45 tabs 0RF pain Patient Instructions: - Continue taking prescribed medications as directed. - Receive tetanus vaccination today. - Schedule a Cologuard test next year. - Monitor blood pressure and report any significant changes. - Limit alcohol intake to moderate levels. - Use support braces for arthritis symptoms as needed. - Follow up with any new or worsening symptoms. - Return for blood work in four months. - Attend echocardiogram appointment in January. - Report any sleeping issues or increased feelings of anxiety or depression.
[2024-07-25 09:14] VITALS: BP 132/86; BMI 26.2
== END 2024-07-25 09:43 | disposition home or self-care (01) ==
LOC: HO.HMCH 09:07
PROVIDERS: PCP Internal Medicine; Visit Provider Internal Medicine
DX: Z00.00 Encounter for general adult medical examination without abnormal findings (principal); F33.0 Major depressive disorder, recurrent, mild

== ENCOUNTER → 2024-07-25 09:05 | Outpatient (BNVA) | payer MEDICARE, SELFPAY | PROVIDERS: PCP Internal Medicine; Visit Provider Internal Medicine | DX: Z00.00 Encounter for general adult medical examination without abnormal findings (principal); F33.0 Major depressive disorder, recurrent, mild; E78.5 Hyperlipidemia, unspecified; M54.9 Dorsalgia, unspecified | CPT/HCPCS: 96127; 99397 ==